=== PATIENT | male | born 1935 | race Caucasian/White ===

== ENCOUNTER → 2017-07-31 | Outpatient (CLI) | payer MEDICARE, BC ==
[2016-11-23 12:29] VITALS: BMI 23.6
[~2017-07-31] MED LIST: BICA50TA36 PO; CALC600T63 PO; CEPH-13 PO; DILT-145 PO; FINA5TAB67 PO; FURO40TA35 PO; LOR5/325 PO; METO25TA23 PO; METO25TA93 PO; OSE75 PO; POTA20TA94 PO; SODI650T7 PO; TAMS0.4C25 PO; WARF-1 PO
--- NOTE | 2017-07-31 11:10 | RADIOLOGY IMAGING REPORT ---
FACILITY: [facility] PATIENT NAME: Trever Shen : 1935 MR: [id number] V: [id number] EXAM DATE: ORDERING PHYSICIAN: ROXY AMAYA TECHNOLOGIST: Location: [facility] [place] Patient: Trever Shen : 1935 Visit/Account:[id number] Date of Sevice: 07/31/2017 Exam type: CHEST PA AND LAT History: Prostate cancer with metastases, pleural effusion three months ago Comparison: April 11, 2017. Findings: There has been reaccumulation of a small right pleural effusion. Small amount of platelike atelectas is noted in the right lung base. The left lung appears relatively well aerated. The cardiac silhoue tte is enlarged but unchanged. There is moderate ectasia the thoracic aorta and mild spondylotic remigio nges of the thoracic spine IMPRESSION: 1. Reaccumulation of a small right pleural effusion with a small amount of right basilar atelectasis Report Dictated By: Alysha Garsia MD at 07/31/2017 11:05 AM Report E-Signed By: Alysha Garsia MD at 07/31/2017 11:07 AM WSN:[email or web address]
== END ==
LOC: RAD 09:18
PROVIDERS: ATTEND Urology
DX: J90 Pleural effusion, not elsewhere classified (principal); J98.11 Atelectasis; C61 Malignant neoplasm of prostate; N18.9 Chronic kidney disease, unspecified
CPT/HCPCS: 36415; 71046; 82040; 82247; 82248; 82310; 82374; 82435; 82565; 82947; 84075; 84132; 84153; 84155; 84295; 84450; 84460; 84520

== ENCOUNTER 2017-08-23 08:33 | Inpatient (IN) | payer MEDICARE, BC ==
[~2017-08-23] VITALS: Ht 185.4 cm; Wt 75.9 kg
[2017-08-23] MEDS ORDERED: NS(*) 0.9% 1000 ML BAG 1,000 ML IV ONE (08:50)
--- NOTE | 2017-08-23 09:22 | EKG ---
FACILITY: [facility] PATIENT NAME: GISELLE JEAN : [id number] MR: [id number] V: [id number] EXAM DATE: ORDERING PHYSICIAN: MINI HAGEN TECHNOLOGIST: FRAN Dodd Reason : MUSCULOSKEL Blood Pressure : / mmHG Vent. Rate : 110 BPM Atrial Rate : 125 BPM P-R Int : 000 ms QRS Dur : 088 ms QT Int : 354 ms P-R-T Axes : 000 087 080 degrees QTc Int : 479 ms Atrial fibrillation with rapid ventricular response Nonspecific ST and T wave abnormality , probably digitalis effect Abnormal ECG When compared with ECG of 22-NOV-2016 06:58, Nonspecific T wave abnormality no longer evident in Inferior leads Confirmed by YON VALE ([id number]) on 08/24/2017 5:49:37 AM Referred By: XIAO Confirmed By:YON VALE
[2017-08-23 09:29] LABS: PLATELET COUNT, AUTOMATED 213 K/uL (150-450)
[2017-08-23 09:36] LABS: INR 2.17
--- NOTE | 2017-08-23 09:47 | ER Report ---
History and Physical Time Seen By MD: 09:18 Hx. of Stated Complaint: feels dehydrated because his ostomy is acting up. "lost about 20# in the last week HPI/ROS CHIEF COMPLAINT: Dehydration HISTORY OF PRESENT ILLNESS: A 82-year-old male with prior episodes of dehydration presents with similar sensation occluding dry mouth and generalized fatigue. History of A. fib. Denies any other symptoms today. States he 1st noticed his ostomy bag following up on an almost daily basis with liquid stools which he feels may be related to the dehydration. Denies bloody stools. REVIEW OF SYSTEMS: Constitutional: No fever, no chills. Eyes: No discharge. ENT: No sore throat. Cardiovascular: No chest pain, no palpitations. Respiratory: No cough, no shortness of breath. Gastrointestinal: No abdominal pain, no vomiting. Genitourinary: No hematuria. Musculoskeletal: No back pain. Skin: No rashes. Neurological: No headache. Allergies: Coded Allergies: Sulfa (Sulfonamide Antibiotics) (Verified Adverse Reaction, Mild, RASH, 08/23/17) Home Meds Active Scripts Potassium Chloride (POTASSIUM CHLORIDE) 20 Meq Tab.er.prt, 20 MEQ PO BIDBS, #60 TAB 1 Refill Prov:CASPER SAEED MD 10/15/16 Reported Medications Furosemide (LASIX) 40 Mg Tablet, 1 TAB PO DAILY Y for edma & dyspnea, #30 TAB May take 1 pill daily as needed for Edema & dyspnea, if needed for more than 2 days in a row, call and follow up with Primary care Physician 11/24/16 Diltiazem Hcl (CARDIZEM CD) 180 Mg Cap.er.24h, 180 MG PO DAILY, #30 11/24/16 Warfarin Sodium (COUMADIN) 5 Mg Tablet, 5 MG PO QDAY, #30 11/24/16 Metoprolol Tartrate (METOPROLOL TARTRATE) 25 Mg Tablet, 1 TAB PO BID, TAB 10/11/16 Sodium Bicarbonate (SODIUM BICARBONATE) 650 Mg Tablet, 1300 MG PO BID 10/11/16 Bicalutamide (BICALUTAMIDE) 50 Mg Tablet, 50 MG PO DAILY 08/14/16 Finasteride (FINASTERIDE) 5 Mg Tablet, 5 MG PO QDAY 08/14/16 Hx Smoking: Yes Smoking Status: Former Smoker Hx Substance Use Disorder: No Hx Alcohol Use: No Constitutional Vital Sign - Last 24 Hours 08/23/17 08/23/17 08/23/17 08/23/17 08:33 08:38 08:38 08:48 Temp 97.9 Pulse ??? 108 91 Resp 20 15 B/P (MAP) 104/91 104/91 (95) Pulse Ox 95 92 O2 Delivery Room Air 08/23/17 08/23/17 08/23/17 08/23/17 09:00 09:03 09:18 09:30 Pulse 98 93 Resp 19 8 B/P (MAP) 81/69 (73) 106/74 (85) Pulse Ox 90 91 08/23/17 08/23/17 08/23/17 08/23/17 09:33 09:48 10:00 10:03 Pulse 95 109 107 Resp 30 18 20 B/P (MAP) 128/72 (90) Pulse Ox 96 91 91 Physical Exam General Appearance: The patient is alert, has no immediate need for airway protection and no signs of toxicity. No acute distress Eyes: Pupils equal and round no pallor or injection. ENT, Mouth: Mucous membranes are dry Respiratory: There are no retractions, lungs are clear to auscultation. Cardiovascular: Irregular rate and rhythm. No murmurs gallops or rubs Gastrointestinal: Abdomen is soft and non tender, no masses, bowel sounds normal. Neurological: Grossly normal Skin: Warm and dry, no rashes. Musculoskeletal: Neck is supple non tender. Extremities are nontender, nonswollen and have full range of motion. No edema DIFFERENTIAL DIAGNOSIS: After history and physical exam differential diagnosis was considered for dehydration pneumonia acute FL dissection renal failure acute kidney injury no signs of stroke or other serious process Medical Decision Making Data Points Result Diagram: 08/23/1711 08/23/1711 Laboratory Hematology Test 08/23/17 09:11 Red Blood Count 4.79 M/uL (4.00-5.60) Mean Corpuscular Volume 87.8 fL (80.0-96.0) Mean Corpuscular Hemoglobin 30.0 pg (26.0-33.0) Mean Corpuscular Hemoglobin Concent 34.2 g/dL (32.0-36.0) Red Cell Distribution Width 16.0 % (11.5-14.5) Mean Platelet Volume 8.6 fL (7.2-11.1) Neutrophils (%) (Auto) 60.0 % (39.4-72.5) Lymphocytes (%) (Auto) 14.2 % (17.6-49.6) Monocytes (%) (Auto) 17.1 % (4.1-12.4) Eosinophils (%) (Auto) 7.9 % (0.4-6.7) Basophils (%) (Auto) 0.8 % (0.3-1.4) Nucleated RBC Relative Count (auto) 0.6 /100WBC Neutrophils # (Auto) 2.0 K/uL (2.0-7.4) Lymphocytes # (Auto) 0.5 K/uL (1.3-3.6) Monocytes # (Auto) 0.6 K/uL (0.3-1.0) Eosinophils # (Auto) 0.3 K/uL (0.0-0.5) Basophils # (Auto) 0.0 K/uL (0.0-0.1) Nucleated RBC Absolute Count (auto) 0.02 K/uL Prothrombin Time 24.7 seconds (12.0-14.4) Prothromb Time International Ratio 2.17 Activated Partial Thromboplast Time 33 seconds (23-35) Sodium Level 138 mmol/L (137-145) Potassium Level 4.4 mmol/L (3.5-5.0) Chloride Level 102 mmol/L (98-107) Carbon Dioxide Level 17 mmol/L (22-30) Blood Urea Nitrogen 54 mg/dl (9-21) Creatinine 4.10 mg/dl (0.66-1.25) Glomerular Filtration Rate Calc 14.0 Random Glucose 168 mg/dl (75-110) Calcium Level 11.0 mg/dl (8.4-10.2) Total Bilirubin 1.1 mg/dl (0.2-1.3) Aspartate Amino Transf (AST/SGOT) 29 U/L (0-35) Alanine Aminotransferase (ALT/SGPT) 41 U/L (0-56) Alkaline Phosphatase 80 U/L (0-126) Troponin I 0.042 ng/ml B-Type Natriuretic Peptide 95 pg/ml (0-100) Total Protein 9.7 gm/dl (6.3-8.2) Albumin 4.9 g/dl (3.5-5.0) Influenza Virus Type A (PCR) Negative (NEGATIVE) Influenza Virus Type B (PCR) Negative (NEGATIVE) Chemistry Test 08/23/17 09:11 White Blood Count 3.3 k/uL (4.5-11.0) Red Blood Count 4.79 M/uL (4.00-5.60) Hemoglobin 14.4 g/dL (14.0-18.0) Hematocrit 42.1 % (42.0-52.0) Mean Corpuscular Volume 87.8 fL (80.0-96.0) Mean Corpuscular Hemoglobin 30.0 pg (26.0-33.0) Mean Corpuscular Hemoglobin Concent 34.2 g/dL (32.0-36.0) Red Cell Distribution Width 16.0 % (11.5-14.5) Platelet Count 213 K/uL (150-450) Mean Platelet Volume 8.6 fL (7.2-11.1) Neutrophils (%) (Auto) 60.0 % (39.4-72.5) Lymphocytes (%) (Auto) 14.2 % (17.6-49.6) Monocytes (%) (Auto) 17.1 % (4.1-12.4) Eosinophils (%) (Auto) 7.9 % (0.4-6.7) Basophils (%) (Auto) 0.8 % (0.3-1.4) Nucleated RBC Relative Count (auto) 0.6 /100WBC Neutrophils # (Auto) 2.0 K/uL (2.0-7.4) Lymphocytes # (Auto) 0.5 K/uL (1.3-3.6) Monocytes # (Auto) 0.6 K/uL (0.3-1.0) Eosinophils # (Auto) 0.3 K/uL (0.0-0.5) Basophils # (Auto) 0.0 K/uL (0.0-0.1) Nucleated RBC Absolute Count (auto) 0.02 K/uL Prothrombin Time 24.7 seconds (12.0-14.4) Prothromb Time International Ratio 2.17 Activated Partial Thromboplast Time 33 seconds (23-35) Glomerular Filtration Rate Calc 14.0 Calcium Level 11.0 mg/dl (8.4-10.2) Total Bilirubin 1.1 mg/dl (0.2-1.3) Aspartate Amino Transf (AST/SGOT) 29 U/L (0-35) Alanine Aminotransferase (ALT/SGPT) 41 U/L (0-56) Alkaline Phosphatase 80 U/L (0-126) Troponin I 0.042 ng/ml B-Type Natriuretic Peptide 95 pg/ml (0-100) Total Protein 9.7 gm/dl (6.3-8.2) Albumin 4.9 g/dl (3.5-5.0) Influenza Virus Type A (PCR) Negative (NEGATIVE) Influenza Virus Type B (PCR) Negative (NEGATIVE) Coagulation Test 08/23/17 09:11 Prothrombin Time 24.7 seconds Prothromb Time International Ratio 2.17 Activated Partial Thromboplast Time 33 seconds EKG/Imaging EKG Interpretation EKG 8:50 AM read by me Narciso elias with rapid ventricular response ventricular rate of 110 normal QRS QTc intervals no ST or 2 changes to suggest ischemia or infarction. ED Course/Re-evaluation ED Course Plan of care agreed-upon prior to orders placed. Elevated creatinine discussed and compared with prior values implications and hospitalization discussed Dr. Evan Saeed patient consultation Decision to Disposition Date: Aug 23, 2017 Decision to Disposition Time: 10:18 Depart Departure Latest Vital Signs Vital Signs Date Time Temp Pulse Resp B/P (MAP) Pulse Ox O2 Delivery O2 Flow Rate FiO2 08/23/17 10:03 107 20 91 08/23/17 10:00 128/72 (90) 08/23/17 08:38 97.9 Room Air Impression: Primary Impression: Acute kidney injury (nontraumatic) Additional Impressions: Dehydration Diarrhea Condition: Improved Disposition: Admitted from ER Referrals: MIKAYLA HIRSCH DO (PCP) Problem Qualifiers Additional Impressions: Diarrhea Diarrhea type: unspecified type Qualified Codes: R19.7 - Diarrhea, unspecified MINI HAGEN MD Aug 23, 2017 09:46
--- NOTE | 2017-08-23 10:03 | RADIOLOGY IMAGING REPORT ---
FACILITY: [facility] - [place] PATIENT NAME: Trever Shen : 1935 MR: [id number] V: [id number] EXAM DATE: ORDERING PHYSICIAN: MINI HAGEN TECHNOLOGIST: Location: [facility] Patient: Trever Shen : 1935 Visit/Account:[id number] Date of Sevice: 08/23/2017 EXAMINATION: Portable AP Chest 08/23/2017 8:46 AM HISTORY: wheezing, dyspnea; for edema COMPARISON: 07/31/2017 FINDINGS: Cardiomediastinal contours: Stable heart size. Lungs and pleura: Stable vasculature and interstitial markings in the lungs. No overt acute edema. No focal infiltrate. Pleural spaces are clear. Bones/soft tissues: Normal Cardiac leads are present. IMPRESSION: No significant acute finding. Small right effusion demonstrated in July has cleared. Report Dictated By: Kole Olivas MD at 08/23/2017 9:18 AM Report E-Signed By: Kole Olivas MD at 08/23/2017 9:21 AM WSN:[email or web address]
[2017-08-23 11:11] VITALS: BP 131/100
[2017-08-23 11:33] VITALS: BP 118/74
[2017-08-23] MEDS: NS(*) 0.9% 1000 ML BAG 1,000 ML IV PRN (12:38)
--- NOTE | 2017-08-23 13:06 | History & Physical ---
History of Present Illness Chief Complaint The patient is an 82 year old male with PMH significant for chronic renal insufficiency, metastatic prostate cancer and ileostomy after colectomy for ulcerative colitis who presents with increased watery output from his ostomy since Saturday. History of Present Illness The patient states he had a complete colectomy many years ago for difficult to control ulcerative colitis. He has had an ileostomy since. He states that occasionally the ostomy output will become loose, but this is not common. On Saturday of this week, the patient did not feel well with some nausea. He vomited X 1. He developed increased watery output from his ostomy. He denies fever or chills. He states his appetite has been poor with this. Nothing sounds good or tastes good. He states his ostomy came undone in the night on and soiled his bed. The edges of the stain on his bedsheets was pink/red. He was concerned about blood. He has not seen augustus blood and has not had dark output. The patient states that with the increased output and decreased oral intake he developed dry lips and mouth. His mouth is so dry it is difficult to speak. He was concerned about dehydration and presented to [facility] ER earlier today for evaluation. In the ER, his creatinine was noted to be over 4. He was recommended for admission for gastroenteritis with significant dehydration and resultant acute on chronic renal failure. 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 (7) HTN (hypertension) Status: Chronic (8) Ulcerative colitis Status: Chronic (9) Parastomal hernia Onset Date: 05/25/2014 Status: Resolved (10) S/P colectomy Status: Resolved Home Meds Reported Medications Furosemide (LASIX) 40 Mg Tablet, 1 TAB PO DAILY Y for edma & dyspnea, #30 TAB May take 1 pill daily as needed for Edema & dyspnea, if needed for more than 2 days in a row, call and follow up with Primary care Physician 11/24/16 Diltiazem Hcl (CARDIZEM CD) 180 Mg Cap.er.24h, 180 MG PO DAILY, #30 11/24/16 Warfarin Sodium (COUMADIN) 5 Mg Tablet, 5 MG PO QDAY, #30 11/24/16 Metoprolol Tartrate (METOPROLOL TARTRATE) 25 Mg Tablet, 1 TAB PO BID, TAB 10/11/16 Sodium Bicarbonate (SODIUM BICARBONATE) 650 Mg Tablet, 1300 MG PO DAILY 10/11/16 Discontinued Reported Medications Bicalutamide (BICALUTAMIDE) 50 Mg Tablet, 50 MG PO DAILY 08/14/16 Finasteride (FINASTERIDE) 5 Mg Tablet, 5 MG PO QDAY 08/14/16 Discontinued Scripts Potassium Chloride (POTASSIUM CHLORIDE) 20 Meq Tab.er.prt, 20 MEQ PO BIDBS, #60 TAB 1 Refill Prov:CASPER SCOTT MD 10/15/16 Allergies: Coded Allergies: Sulfa (Sulfonamide Antibiotics) (Verified Adverse Reaction, Mild, RASH, 08/23/17) Patient History: FH: arthritis FATHER, FH: diabetes mellitus MOTHER, Ana Gehrig's disease BROTHER OR SISTER Other Social/Family Hx The patient is for about 10 years and lives alone. He has family members who help him at home. He is retired. He quit smoking in 1981 and quit alcohol use in 1992. 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 Hx Smoking: Yes Smoking Status: Former Smoker Caffeine Intake: Coffee Caffeine/Cups Per Day: 1-2 Hx Alcohol Use: Yes (Quit drinking in 1992. Active AA member. 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.) Hx Substance Use Disorder: No Social Drug Use: Never History of IV Drug Use: No Review of Systems Constitutional: No Fever, No Chills Neurological: Weakness Eyes: No Vision Change ENT: No Hearing Loss Cardiovascular: No Chest Pain Respiratory: No Shortness of Breath Gastrointestinal: Nausea, Vomiting, Diarrhea (Watery ostomy output.), Other ( Decreased appetite.) Genitourinary: No Dysuria Musculoskeletal: No Pain Psychiatric: No Depression Exam Vital Signs Vital Signs Date Time Temp Pulse Resp B/P (MAP) Pulse Ox O2 Delivery O2 Flow Rate FiO2 08/25/17 18:20 97.6 90 16 114/77 (89) 96 Room Air General Appearance: Alert, Awake, No Acute Distress, Other (Mouth is dry so has difficulty speaking.) Neuro: No Gross deficits Eyes: PERRLA ENT: Other (Lips and mucous membranes extremely dry and lips are cracked.) Neck: No Masses Cardiovascular: Other (Irregularly irregular.) Respiratory: Clear to Auscultation (Anteriorly.) GI: Abd Soft and Non-Tender, Other (BS hyperactive. Ostomy bag in place RLQ. No redness.) Extremities: Warm, Perfused, Other (No edema.) Integumentary: Skin Intact without Lesion / Mass Psych: Appropriate Mood & Affect Medical Decision Making Data Points Result Diagram: 08/25/1753608/25/17536 Item Value Date Time Total Bilirubin 1.1 mg/dl 08/23/17 0911 Aspartate Amino Transf (AST/SGOT) 29 U/L 08/23/17 0911 Alanine Aminotransferase (ALT/SGPT) 41 U/L 08/23/17 0911 Alkaline Phosphatase 80 U/L 08/23/17 0911 Troponin I 0.042 ng/ml 08/23/17 0911 B-Type Natriuretic Peptide 95 pg/ml 08/23/17 0911 Total Protein 9.7 gm/dl H 08/23/17 0911 Albumin 4.9 g/dl 08/23/17 0911 Prothromb Time International Ratio 2.17 08/23/17 0911 Urine culture ordered. EKG / Imaging EKG Interpretation FACILITY: [facility] [place] PATIENT NAME: GISELLE JEAN DOB: [id number] MR: [id number] V: [id number] EXAM DATE: ORDERING PHYSICIAN: MINI HAGEN TECHNOLOGIST: FRAN Dodd Reason : MUSCULOSKEL Blood Pressure : / mmHG Vent. Rate : 110 BPM Atrial Rate : 125 BPM P-R Int : 000 ms QRS Dur : 088 ms QT Int : 354 ms P-R-T Axes : 000 087 080 degrees QTc Int : 479 ms Atrial fibrillation with rapid ventricular response Nonspecific ST and T wave abnormality , probably digitalis effect Abnormal ECG When compared with ECG of 22-NOV-2016 06:58, Nonspecific T wave abnormality no longer evident in Inferior leads Referred By: XIAO Confirmed By: 0850 T: Imaging FACILITY: [facility] [place] PATIENT NAME: Giselle Jean DOB: 1935 MR: [id number] V: [id number] EXAM DATE: ORDERING PHYSICIAN: MINI HAGEN TECHNOLOGIST: Location: [facility] - [place] Patient: Giselle Jean : 1935 Visit/Account:[id number] Date of Sevice: 08/23/2017 EXAMINATION: Portable AP Chest 08/23/2017 8:46 AM HISTORY: wheezing, dyspnea; for edema COMPARISON: 07/31/2017 FINDINGS: Cardiomediastinal contours: Stable heart size. Lungs and pleura: Stable vasculature and interstitial markings in the lungs. No overt acute edema. No focal infiltrate. Pleural spaces are clear. Bones/soft tissues: Normal Cardiac leads are present. IMPRESSION: No significant acute finding. Small right effusion demonstrated in July has cleared. Report Dictated By: Kole Olivas MD at 08/23/2017 9:18 AM Report E-Signed By: Kole Olivas MD at 08/23/2017 9:21 AM WSN:[email or web address] Pre-Admit Course ED Medications NS. Medical Record Review: Yes Assessment and Plan Problems: (1) Gastroenteritis Status: Acute Assessment & Plan: The patient has had 2 days of nausea and watery ostomy output. No fever or chills. WBC is normal. Certainly could have VGE. Will send stool for cultures, WBC and C. diff. Will hydrate. Monitor labs. (2) Acute on chronic renal failure Status: Acute Assessment & Plan: Creatinine is elevated to 4.1. His baseline creatinine appears to be around 2. Will hydrate and monitor labs. Adjust meds as needed for renal failure. (3) Dehydration Status: Acute Assessment & Plan: Hydrate as above. Monitor labs. (4) Chronic atrial fibrillation Status: Chronic Assessment & Plan: Continue Coumadin. INR is 2.1. Continue diltiazem ER 180mg daily. (5) HTN (hypertension) Status: Chronic Assessment & Plan: Continue diltiazem ER 180mg daily. 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 He is on no medications currently as Dr. Pearson stopped his finasteride. (7) Prostate cancer metastatic to multiple sites Status: Chronic Assessment & Plan: He sees Dr. Myrick and has had radiation therapy to his prostate and bony mets. Casodex has been stopped. 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 (9) Ulcerative colitis Status: Chronic Assessment & Plan: S/P colectomy with ileostomy as above. Time Spent on Plan of Care: < 30 min Copies to: MIKAYLA HIRSCH DO; EFRAÍN SCHMIDT MD; ROXY PEARSON MD; OMA MYRICK MD Venous Thromboembolism VTE Risk Physician Assess for VTE Risk: Yes Patient's VTE Risk: Low VTE Diagnostic Test 2 Days Prior to Admit: No Antithrombotics Is Pt On Any Antithrombotics?: Yes Exam Sepsis Risk: No Definite Risk Problem Qualifiers (1) HTN (hypertension): Hypertension type: essential hypertension Qualified Codes: I10 - Essential ( primary) hypertension YON SCOTT MD Aug 23, 2017 13:06
[2017-08-23 15:02] VITALS: BP 106/80
[2017-08-23 15:48] VITALS: Ht 185.4 cm; Wt 75.9 kg
[2017-08-23 18:49] VITALS: BP 124/88
[2017-08-24] VITALS (8 sets, daily range): BP systolic 102–132; BP diastolic 66–93
[2017-08-24] MEDS: NS(*) 0.9% 1000 ML BAG 1,000 ML IV PRN ×3 (00:41→20:32)
[2017-08-24 06:02] LABS: PLATELET COUNT, AUTOMATED 155 K/uL (150-450)
[2017-08-24 06:28] LABS: INR 2.84
[2017-08-24] MEDS ORDERED: cefTRIAXone 1 GM VIAL IVP SCH (07:00)
[2017-08-24] MEDS: DILTIAZEM CD 180 MG CAPCR PO SCH (09:00)
[2017-08-24] MEDS: METOPROLOL TART 50 MG TAB PO SCH ×2 (09:00→20:32)
[2017-08-24] MEDS ORDERED: DILTIAZEM CD 180 MG CAPCR PO SCH (09:00)
[2017-08-24] MEDS ORDERED: METOPROLOL TART 50 MG TAB PO SCH (09:00)
[2017-08-24] MEDS: SODIUM BICARBONATE 650 MG TAB PO SCH (09:25)
[2017-08-24] MEDS: cefTRIAXone 1 GM VIAL IVP SCH (09:25)
--- NOTE | 2017-08-24 10:33 | Hospitalist Progress Note ---
Subjective Progress Notes Subjective He reports feeling improved. Still with some loose/watery ileostomy output. Physical Exam Vital Signs Date Time Temp Pulse Resp B/P (MAP) Pulse Ox O2 Delivery O2 Flow Rate FiO2 08/24/17 09:30 111/66 (81) 08/24/17 08:20 97 08/24/17 08:14 97.6 109 16 Room Air General Appearance: Alert, Awake Cardiovascular: Other (Irregular slightly tachycardic) Respiratory: Clear to Auscultation GI: Soft and Non-Tender (BS present), Other (ileostomy LLQ with minimal amount liquid stool) Extremities: Warm, Perfused Psych: Alert & Oriented X3 Result Diagram: 08/24/1754408/24/17544 Assessment and Plan Problems: (1) UTI (urinary tract infection) Status: Acute Assessment & Plan: Complicated by self-cathing. He is currently on IV Rocephin. Await urine culture results. Will place Jones cath to ensure adequate urinary drainage and monitor I/Os. Resume self-cath after treatment for a couple of days. 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 He usually does self-cath. He is on no medications currently as Dr. Pearson stopped his finasteride. (3) Gastroenteritis Status: Acute Assessment & Plan: Probable viral gastroenteritis. The patient had 2 days of nausea and watery ileostomy output. Stool culture pending. C. difficile negative. Will continue IV fluids. Clinically improved. No changes at this time. (4) Acute on chronic renal failure Status: Acute Assessment & Plan: Creatinine was elevated to 4.1. He is at 3.3 today after IV fluids. His baseline creatinine appears to be around 2. Will continue IV fluids and monitor labs. (5) Dehydration Status: Acute Assessment & Plan: Due to probably viral gastroenteritis and increased ileostomy output. Hydrate as above. Monitor labs. (6) Chronic atrial fibrillation Status: Chronic Assessment & Plan: Continue Coumadin. INR is 2.84 today. Continue diltiazem and metoprolol for rate control as he tolerates. (7) HTN (hypertension) Status: Chronic Assessment & Plan: He has been on lower side due to dehydration. Monitor BPs and resume his medications as needed. (8) Prostate cancer metastatic to multiple sites Status: Chronic Assessment & Plan: He sees Dr. Saenz and had radiation therapy to his prostate and bony mets. Casodex has been stopped. 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 (10) Ulcerative colitis Status: Chronic Assessment & Plan: S/P colectomy with ileostomy as above. Exam Sepsis Risk: Severe Sepsis Risk Problem Qualifiers (1) HTN (hypertension): Hypertension type: essential hypertension Qualified Codes: I10 - Essential ( primary) hypertension CASPER SCOTT MD Aug 24, 2017 10:32
--- NOTE | 2017-08-24 12:18 | Medical Nutrition Therapy ---
Nutrition Anthropometrics Height (Inches): 73.00 Height (Calculated Centimeters: [phone] Weight (Pounds): 167 Weight (Calculated Kilograms): 75.892 BMI Calculated: 22.03 Hx Weight Loss: Yes (wt 179# 11/2016 by standing scale; stated wt of 187# 2016) Jerson Nutrition Score: Adequate Jerson Nutrition Risk Score: 20 Dietary Referral Nutrition Risk Factors: Unplanned Loss >10lbs Nutrition Risk Comment: 30 lb weight loss in 1 month Physical Findings Physical Appearance: WNL Skin Appearance Skin Appearance: Edema Edema Location Modifier: Edema Location: Type of Edema: Degree of Edema: Gastrointestinal Symptoms GI Symtoms: Tube Present: Bowel Sounds: Recent Bowel Pattern: Stool Characteristics: Nutrition/Food History Decreased Appetite Nutritional Diagnosis Nutritional Risk Acuity 1: Acute/ES Renal Nutritional Risk Acuity 3: Fair Appetite, Nausea, Cancer Past Medical History: ileostomy, ulcerative colitis, metistatic prostrate Ca, chronic kidney disease, chronic renal failure, Nutritional Acuity: 1-High Nutrition Diagnosis: Inadequate Food Intake Nutrition Etiology: Physiological Causes Nutrition Problem/Etiology/Sym: Inadequate Oral Intake related to decreased ability to consume sufficient energy, e.g. decreased appetite prior to admit AEB reports of insufficient intake of energy from diet when compared to requirements. Energy Requirement: 2250 ([place]-St Jeor: Actual BW X 1.5) Protein Requirement: 75 (Actual BW Kg X 1.0) Fluid Requirement: 2250 Diet Type: Diet as Tolerated MATIAS/REG Nutrition Intervention: Cont diet as ordered Do Not Serve Any of the Follow: Broccoli, Brussel Sprouts, Spinach, [place] Lettuce, Cranberry Juice Nutrition Monitoring & Eval RD Patient Assessment Time: [address] Assessment Type: RD Assessment Patient Nutrition Acuity: 1-High Follow Up Date: Aug 25, 2017 Nutritional Comment: 08/23 Pt admitted for gastoenteritis with acute on chronic renal failure. BUN 54, Creatinine 4.1. Alb 4.9 with dehydration. Pt currently on clear liquid diet. Pt has ileostomy with watery outpt. Will encourage adequate fluid intake. Cont to monitor. 08/24 Alb 4.9, High BUN/Creat, Low H/H. Within normal wt range with BMI of 22.1. Diet progression to MATIAS with 100% consumption of clear liquid meal last night. Noted decreased intake prior to admit. Follow intake, labs, etc. GENARO DAS Aug 24, 2017 12:18
[2017-08-24] MEDS: WARFARIN SOD 5 MG TAB PO SCH (13:27)
[2017-08-25] VITALS (7 sets, daily range): BP systolic 109–137; BP diastolic 70–90
[2017-08-25] MEDS: NS(*) 0.9% 1000 ML BAG 1,000 ML IV PRN ×2 (04:29→22:08)
[2017-08-25 06:06] LABS: PLATELET COUNT, AUTOMATED 134 K/uL (150-450)
[2017-08-25 06:08] LABS: INR 2.96
[2017-08-25] MEDS: SODIUM BICARBONATE 650 MG TAB PO SCH (08:40)
[2017-08-25] MEDS: METOPROLOL TART 50 MG TAB PO SCH ×2 (08:40→21:00)
[2017-08-25] MEDS: DILTIAZEM CD 180 MG CAPCR PO SCH (09:00)
[2017-08-25] MEDS: cefTRIAXone 1 GM VIAL IVP SCH (09:12)
[2017-08-25] MEDS ORDERED: LOPERAMIDE HCL 2 MG CAP PO PRN (09:30)
[2017-08-25] MEDS ORDERED: CALAMINE LOTION 120 ML BTL TP PRN (09:40)
[2017-08-25] MEDS ORDERED: NS 0.45% IV SCH (10:00)
[2017-08-25] MEDS ORDERED: SODIUM BICAR IV SCH (10:00)
--- NOTE | 2017-08-25 11:23 | Medical Nutrition Therapy ---
Nutrition Anthropometrics Height (Inches): 73.00 Height (Calculated Centimeters: 185.360058 Weight (Pounds): 167 Weight (Calculated Kilograms): 75.892 BMI Calculated: 22.03 Hx Weight Loss: Yes (wt 179# 11/2016 by standing scale; stated wt of 187# 2017) Jerson Nutrition Score: Adequate Jerson Nutrition Risk Score: 20 Dietary Referral Nutrition Risk Factors: Unplanned Loss >10lbs Nutrition Risk Comment: 30 lb weight loss in 1 month Physical Findings Physical Appearance: WNL Skin Appearance Skin Appearance: Edema Edema Location Modifier: Edema Location: Type of Edema: Degree of Edema: Gastrointestinal Symptoms GI Symtoms: Tube Present: Bowel Sounds: Recent Bowel Pattern: Stool Characteristics: Nutritional Diagnosis Nutritional Risk Acuity 1: Acute/ES Renal Nutritional Risk Acuity 3: Fair Appetite, Nausea, Cancer Past Medical History: ileostomy, ulcerative colitis, metistatic prostrate Ca, chronic kidney disease, chronic renal failure, Nutritional Acuity: 1-High Nutrition Diagnosis: Inadequate Food Intake Nutrition Etiology: Physiological Causes Nutrition Problem/Etiology/Sym: Inadequate Oral Intake related to decreased ability to consume sufficient energy, e.g. decreased appetite prior to admit AEB reports of insufficient intake of energy from diet when compared to requirements. Energy Requirement: 2250 ([place]-St Jeor: Actual BW X 1.5) Protein Requirement: 75 (Actual BW Kg X 1.0) Fluid Requirement: 2250 Diet Type: Diet as Tolerated MATIAS/REG Nutrition Intervention: Cont diet as ordered Drug: Warfarin Food Likes: 1/2 Portions Do Not Serve Any of the Follow: Broccoli, Brussel Sprouts, Spinach, [place] Lettuce, Cranberry Juice Nutrition Monitoring & Eval Nutrition Goals: Eat 75-100% Meal RD Patient Assessment Time: [address] Assessment Type: RD Re-Assessment Patient Nutrition Acuity: 1-High Follow Up Date: Aug 28, 2017 Nutritional Comment: 08/23 Pt admitted for gastoenteritis with acute on chronic renal failure. BUN 54, Creatinine 4.1. Alb 4.9 with dehydration. Pt currently on clear liquid diet. Pt has ileostomy with watery outpt. Will encourage adequate fluid intake. Cont to monitor. 08/24 Alb 4.9, High BUN/Creat, Low H/H. Within normal wt range with BMI of 22.1. Diet progression to MATIAS with 100% consumption of clear liquid meal last night. Noted decreased intake prior to admit. Follow intake, labs, etc. 08/25 Abl 3.2. Seems to be tolerating MATIAS with 50-100% consumption of meals. Follow labs, etc. GENARO DAS Aug 25, 2017 11:23
[2017-08-25] MEDS ORDERED: INFLUENZA VIRUS VAC 0.5 ML SYR IM ONLY ONE (11:55)
--- NOTE | 2017-08-25 12:22 | Hospitalist Progress Note ---
Subjective Progress Notes Subjective The patient states he feels much better today. Physical Exam Vital Signs Date Time Temp Pulse Resp B/P (MAP) Pulse Ox O2 Delivery O2 Flow Rate FiO2 08/25/17 11:35 97.6 08/25/17 11:16 90 12 116/75 (89) 95 Room Air Intake and Output 08/26/17 07:00 Intake Total 1380 ml Balance 1380 ml Intake Oral 1380 ml General Appearance: Alert, Awake, No Acute Distress, Afebrile Neuro: No Gross deficits Eyes: PERRLA Cardiovascular: Regular Rate and Rhythm Respiratory: Clear to Auscultation GI: Soft and Non-Tender Extremities: Warm, Perfused Psych: Appropriate Mood & Affect Result Diagram: 08/25/1753608/25/17536 Assessment and Plan Problems: (1) UTI (urinary tract infection) Status: Acute Assessment & Plan: Complicated by self-cathing. He is currently on IV Rocephin. Urine culture is growing a gram negative malena (>100,000 col/HP).Jones cath was placed to ensure adequate urinary drainage and monitor I/Os. Resume self-cath after treatment for a couple of days. 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 He usually does self-cath. He is on no medications currently as Dr. Pearson stopped his finasteride. (3) Gastroenteritis Status: Acute Assessment & Plan: Probable viral gastroenteritis. The patient had 2 days of nausea and watery ileostomy output. Stool culture negative. C. difficile negative. Will continue IV fluids. Clinically improved. Will add Imodium today. (4) Acute on chronic renal failure Status: Acute Assessment & Plan: Creatinine was elevated to 4.1. He is at 2.5 today after IV fluids. His baseline creatinine appears to be around 2. Will continue IV fluids and monitor labs. (5) Dehydration Status: Acute Assessment & Plan: Due to probably viral gastroenteritis and increased ileostomy output. Hydrate as above. Monitor labs. (6) Chronic atrial fibrillation Status: Chronic Assessment & Plan: Continue Coumadin. INR is 2.84 today. Continue diltiazem and metoprolol for rate control as he tolerates. (7) HTN (hypertension) Status: Chronic Assessment & Plan: He has been on lower side due to dehydration. Monitor BPs and resume his medications as needed. (8) Prostate cancer metastatic to multiple sites Status: Chronic Assessment & Plan: He sees Dr. Saenz and had radiation therapy to his prostate and bony mets. Casodex has been stopped. 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 (10) Ulcerative colitis Status: Chronic Assessment & Plan: S/P colectomy with ileostomy as above. Time Spent on Plan of Care: < 30 min Exam Sepsis Risk: Severe Sepsis Risk Problem Qualifiers (1) HTN (hypertension): Hypertension type: essential hypertension Qualified Codes: I10 - Essential ( primary) hypertension YON SCOTT MD Aug 25, 2017 12:22
[2017-08-25] MEDS: WARFARIN SOD 5 MG TAB PO SCH (13:21)
[2017-08-25] MEDS ORDERED: VANCOMYCIN(*) 1 GM VIAL 1 GM, VANCOMYCIN (*) 0.5 GM VIAL 0.25 GM in NS(*) 0.9% 250 ML B... IVPB ONE (19:30)
[2017-08-26 02:28] VITALS: BP 103/63
[2017-08-26 06:10] LABS: INR 2.75
[2017-08-26] MEDS: NS(*) 0.9% 1000 ML BAG 1,000 ML IV PRN (06:16)
[2017-08-26 06:23] LABS: PLATELET COUNT, AUTOMATED 120 K/uL (150-450)
[2017-08-26 08:13] VITALS: BP 105/74
[2017-08-26] MEDS: cefTRIAXone 1 GM VIAL IVP SCH (08:23)
[2017-08-26] MEDS: METOPROLOL TART 50 MG TAB PO SCH (08:25)
[2017-08-26] MEDS: DILTIAZEM CD 180 MG CAPCR PO SCH (08:25)
[2017-08-26] MEDS: SODIUM BICARBONATE 650 MG TAB PO SCH (08:25)
--- NOTE | 2017-08-26 10:13 | Hospitalist Depart ---
Discharge Summary Reason for Hosp/Final Diag: (1) UTI (urinary tract infection) Status: Acute Hospital Course & Plan: He does have a history of straight catheterization at home. He was initially thought to have a urinary infection, but his culture showed contamination with skin karel. We did initially have him on empiric treatment with ceftriaxone and vancomycin, but we have since stopped all antibiotics. 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 A Jones catheter was placed at admission, but has since been discontinued. (3) Gastroenteritis Status: Acute Hospital Course & Plan: Resolved. (4) Acute on chronic renal failure Status: Acute Hospital Course & Plan: He did have an elevated creatinine above his baseline. This improved with IV fluids. He will follow up with nephrology. (5) Dehydration Status: Acute Hospital Course & Plan: Resolved with IV fluids. (6) Chronic atrial fibrillation Status: Chronic Hospital Course & Plan: He is on chronic treatment with warfarin, metoprolol, and diltiazem. His INR is in therapeutic range on discharge. (7) Prostate cancer metastatic to multiple sites Status: Chronic Hospital Course & Plan: He sees Dr. Saenz and had radiation therapy to his prostate and bony mets. Casodex has been stopped. (8) Ileostomy in place Status: Chronic Hospital Course & Plan: Appears to be functioning. (9) Ulcerative colitis Status: Chronic Hospital Course & Plan: S/P colectomy with ileostomy as above. Departure Latest Vital Signs Vital Signs 08/26/17 08:21 Pulse Ox 94 Weight (Pounds): 167 Weight (Ounces): 5.0 Result Diagram: 08/26/1753208/26/17532 Condition: Improved Discharge: Home, Home Health PT/OT Follow Up For: PT Evaluation and Treat Home Health RN Follow Up For: Cathether Care, Nursing Assessment Home Health [employer] Follow Up For: ADL Assistance Discharge Instructions Home Meds Reported Medications Furosemide (LASIX) 40 Mg Tablet, 1 TAB PO DAILY Y for edma & dyspnea, #30 TAB May take 1 pill daily as needed for Edema & dyspnea, if needed for more than 2 days in a row, call and follow up with Primary care Physician 11/24/16 Diltiazem Hcl (CARDIZEM CD) 180 Mg Cap.er.24h, 180 MG PO DAILY, #30 11/24/16 Warfarin Sodium (COUMADIN) 5 Mg Tablet, 5 MG PO QDAY, #30 11/24/16 Metoprolol Tartrate (METOPROLOL TARTRATE) 25 Mg Tablet, 1 TAB PO BID, TAB 10/11/16 Sodium Bicarbonate (SODIUM BICARBONATE) 650 Mg Tablet, 1300 MG PO DAILY 10/11/16 Discontinued Reported Medications Bicalutamide (BICALUTAMIDE) 50 Mg Tablet, 50 MG PO DAILY 08/14/16 Finasteride (FINASTERIDE) 5 Mg Tablet, 5 MG PO QDAY 08/14/16 Discontinued Scripts Potassium Chloride (POTASSIUM CHLORIDE) 20 Meq Tab.er.prt, 20 MEQ PO BIDBS, #60 TAB 1 Refill Prov:CASPER SCOTT MD 10/15/16 Diet: Regular Activity: As Tolerated Copies to: MIKAYLA HIRSCH DO Venous Thromboembolism Antithrombotics Is Pt On Any Antithrombotics?: Yes [id number] Certification Face to Face Home Health Certification Institutional Provider conducted the [id number] encounter. Electronic Undersigning Physician Certifies Home Health. I certify that the patient has been under my care and that I had a [id number] encounter that meets the physician [id number] encounter requirements with this patient. This patient is home-bound due to safety issues and continues to require assistance with ADL's. I certify that based on my findings, that Nursing, Aides and the following Home Health services are medically necessary: Medical Necessity: Nursing, Rehab Date Face to Face Conducted: Aug 26, 2017 SUNI WATERMAN DO Aug 26, 2017 10:13
[2017-08-26 11:39] VITALS: BP 129/85
[2017-08-26] MEDS: WARFARIN SOD 5 MG TAB PO SCH (12:50)
== END 2017-08-26 14:10 | disposition home health service (06) | DRG 683 ==
LOC: ER 08:33 → MED 10:38
PROVIDERS: ADMIT Internal Medicine; ATTEND Internal Medicine
DX: N17.9 Acute kidney failure, unspecified (principal); C79.51 Secondary malignant neoplasm of bone; K51.90 Ulcerative colitis, unspecified, without complications; N13.8 Other obstructive and reflux uropathy; N18.4 Chronic kidney disease, stage 4 (severe); N40.1 Benign prostatic hyperplasia with lower urinary tract symptoms; A08.4 Viral intestinal infection, unspecified; I12.9 Hypertensive chronic kidney disease with stage 1 through stage 4 chronic kidney disease, or unspecified chronic kidney disease; E86.0 Dehydration; I48.2 Chronic atrial fibrillation; C61 Malignant neoplasm of prostate; F10.21 Alcohol dependence, in remission; I48.0 Paroxysmal atrial fibrillation; Z79.01 Long term (current) use of anticoagulants; Z93.2 Ileostomy status; Z87.891 Personal history of nicotine dependence; Z88.2 Allergy status to sulfonamides; Z92.21 Personal history of antineoplastic chemotherapy
CPT/HCPCS: 36415; 71045; 81001; 82040; 82247; 82274; 82310; 82374; 82435; 82565; 82947; 83630; 83880; 84075; 84132; 84155; 84295; 84450; 84460; 84484; 84520; 85025; 85610; 85730; 87045; 87077; 87088; 87186; 87205; 87324; 87449; 87502; 93005; 96360; 96361; 99285; J0696; J3370; J7030; J7050; Q0163

== ENCOUNTER → 2017-10-23 | Outpatient (CLI) | payer MEDICARE, BC ==
[2017-08-23 15:48] VITALS: BMI 22.0
[2017-10-23 15:27] LABS: PLATELET COUNT, AUTOMATED 162 K/uL (150-450)
== END ==
LOC: LAB 14:51
PROVIDERS: ATTEND Internal Medicine Nephrology
DX: I12.9 Hypertensive chronic kidney disease with stage 1 through stage 4 chronic kidney disease, or unspecified chronic kidney disease (principal); N18.4 Chronic kidney disease, stage 4 (severe); D63.1 Anemia in chronic kidney disease
CPT/HCPCS: 36415; 82040; 82247; 82310; 82374; 82435; 82565; 82570; 82947; 83970; 84075; 84100; 84132; 84155; 84156; 84295; 84450; 84460; 84520; 85025

== ENCOUNTER → 2017-10-24 | Outpatient (CLI) | payer MEDICARE, BC ==
[2017-08-23 15:48] VITALS: BMI 22.0
--- NOTE | 2017-10-24 16:47 | RADIOLOGY IMAGING REPORT ---
FACILITY: [facility] PATIENT NAME: Trever Shen : 1935 MR: [id number] V: [id number] EXAM DATE: ORDERING PHYSICIAN: ROBYN VEGA TECHNOLOGIST: Location[place] [facility] [place] Patient: Trever Shen : 1935 Visit/Account:[id number] Date of Sevice: 10/24/2017 Exam type: CHEST PA AND LAT History: Shortness of breath x2 weeks Comparison: August 23, 2017. Findings: The cardiac silhouette is mildly enlarged and slightly increased when compared the prior study. Ther e has been development of a small right pleural effusion. There is no evidence of a pneumothorax or pneumomediastinum. No evidence of focal infiltrates or overt pulmonary edema. There are mild spondy lotic changes in the thoracic spine. IMPRESSION: 1. Small right pleural effusion has occurred since the prior study Mild cardiomegaly slightly increased Report Dictated By: Alysha Garsia MD at 10/24/2017 4:42 PM Report E-Signed By: Alysha Garsia MD at 10/24/2017 4:43 PM WSN:[email or web address]
== END ==
LOC: RAD 16:16
PROVIDERS: ATTEND Surgery
DX: J90 Pleural effusion, not elsewhere classified (principal); I51.7 Cardiomegaly
CPT/HCPCS: 71046

== ENCOUNTER → 2017-10-25 | Outpatient (CLI) | payer MEDICARE, BC ==
[2017-08-23 15:48] VITALS: BMI 22.0
[~2017-10-25] MED LIST changes: +LIDOCAINE 2% MDV 400MG/20ML VL INFIL ONE
== END ==
LOC: SPU 07:34
PROVIDERS: ATTEND Surgery
DX: C61 Malignant neoplasm of prostate (principal); C79.9 Secondary malignant neoplasm of unspecified site

== ENCOUNTER → 2017-12-02 | Outpatient (CLI) | payer MEDICARE, BC ==
[2017-08-23 15:48] VITALS: BMI 22.0
[~2017-12-02] MED LIST changes: +IOPAMIDOL 76% 75 ML INFUS BTL 0 ML ONE; -LIDOCAINE 2% MDV 400MG/20ML VL INFIL ONE
--- NOTE | 2017-12-02 10:43 | RADIOLOGY IMAGING REPORT ---
FACILITY: [facility] [place] PATIENT NAME: Trever Shen : 1935 MR: [id number] V: [id number] EXAM DATE: ORDERING PHYSICIAN: ROXY AMAYA TECHNOLOGIST: Location: [facility] - [place], [place] Patient: Trever Shen : 1935 Visit/Account:[id number] Date of Sevice: 12/02/2017 EXAMINATION: Chest radiographs 2 views HISTORY: Prostate cancer with metastases. Pleural effusion. COMPARISON: Chest radiographs from 08/23/2017 and 10/24/2017. FINDINGS: PA and lateral views of the chest are submitted. Lines/tubes: None. Lungs/pleura: A small right pleural effusion is unchanged from most recent exam. Left lung is clear . No focal consolidation. Heart: Negative. Mediastinum: Aorta is mildly tortuous and calcified. Bony structures/body wall: Negative. IMPRESSION: Small right pleural effusion, unchanged. Report Dictated By: Madisyn Navarro MD at 12/02/2017 10:13 AM Report E-Signed By: Madisyn Navraro MD at 12/02/2017 10:39 AM WSN:[email or web address]
--- NOTE | 2017-12-02 12:17 | RADIOLOGY IMAGING REPORT ---
FACILITY: [facility] [place] PATIENT NAME: Trever Shen : 1935 MR: [id number] V: [id number] EXAM DATE: ORDERING PHYSICIAN: ROXY AMAYA TECHNOLOGIST: Location: [facility] Patient: Trever Shen : 1935 Visit/Account:[id number] Date of Sevice: 12/02/2017 EXAMINATION: CT abdomen without IV contrast CT pelvis without IV contrast HISTORY: Prostate cancer with metastases. Pleural effusion. COMPARISON: CT chest, abdomen and pelvis from 08/07/2016. TECHNIQUE: Axial images were taken through the abdomen and pelvis without intravenous contrast. Sag ittal and coronal reformatted images are also submitted. IV contrast was not used due to low GFR. One of the following dose optimization techniques was utilized in the performance of this exam: Autom ated exposure control; adjustment of the mA and/or kV according to the patient's size; or use of an i terative reconstruction technique. Specific details can be referenced in the facility's radiology C T exam operational policy. FINDINGS: Please note that without intravenous contrast, sensitivity to detection of parenchymal disease is patino ited. Liver/biliary: Previous cholecystectomy. There are a few subcentimeter hypodensities in the liver wh ich are unchanged. There is no biliary ductal dilatation. Pancreas: Several coarse calcifications in the pancreatic head are unchanged. Spleen: Negative. Adrenal glands: Negative. Kidneys: Mild cortical thinning bilaterally. Pelvic structures: The prostate is mildly enlarged, although decreased from previous exam. There is diffuse wall thickening of the urinary bladder with numerous calcified bladder stones, slightly la rger. Bowel: Total colectomy with right lower quadrant ileostomy. Peritoneum/retroperitoneum/mesenteries: Nodularity along the left posterior margin of the prostate an d in the presacral fat is more linear than on previous exam. Vague haziness in the upper retroperito alfonso fat is unchanged. Vessels: Moderate atherosclerotic calcifications. Musculoskeletal/body wall: Mild rightward curvature and degenerative changes of the lumbar spine. Ex pansile lesion of the left sacrum is smaller with decreased soft tissue component and increased perip heral sclerosis. The lesion measures 5.7 cm in greatest dimension as compared to 7.6 cm. A subcenti meter area of sclerosis in the left iliac bone (image 88 series 2) is slightly larger with more scler osis at the periphery. Slight anterior wedging of T12 is unchanged. Lymph nodes: There are a few retroperitoneal lymph nodes in the upper abdomen, unchanged. A right re trocrural node measures 1.4 x 1.2 cm (image 23 series 2), unchanged. Lower chest: Small to moderate right pleural effusion is increased from previous exam with mild adjac ent atelectasis. Left lung base is clear. IMPRESSION: 1. Small to moderate right pleural effusion is slightly increased. This could be a benign or malign ant effusion. There is no associated soft tissue nodularity to suggest malignancy. 2. Bone metastasis in the sacrum is smaller, with increased sclerosis at the periphery. This could be a residual or treated metastasis. 3. Subcentimeter left iliac bone lesion has increased sclerosis at the periphery and could be a resi dual or treated metastasis. 4. Nodularity along the left posterior prostate and in the presacral fat is more linear, and could b e scarring, versus residual or treated disease. 5. A few retroperitoneal lymph nodes and a mildly enlarged right retrocrural node are unchanged. 6. No evidence of progression of disease. Report Dictated By: Madisyn Navarro MD at 12/02/2017 11:59 AM Report E-Signed By: Madisyn Navarro MD at 12/02/2017 12:13 PM WSN:[email or web address]
== END ==
LOC: CT 03:22
PROVIDERS: ATTEND Urology
DX: J90 Pleural effusion, not elsewhere classified (principal); I70.0 Atherosclerosis of aorta; C79.51 Secondary malignant neoplasm of bone; R59.0 Localized enlarged lymph nodes
CPT/HCPCS: 71046; 74176; Q9967

== ENCOUNTER → 2017-12-10 | Outpatient (CLI) | payer MEDICARE, BC ==
[2017-08-23 15:48] VITALS: BMI 22.0
[~2017-12-10] MED LIST changes: -IOPAMIDOL 76% 75 ML INFUS BTL 0 ML ONE
== END ==
LOC: LAB 18:22
PROVIDERS: ATTEND Urology
DX: N39.41 Urge incontinence (principal); R35.0 Frequency of micturition; R33.8 Other retention of urine; N21.0 Calculus in bladder; B96.89 Other specified bacterial agents as the cause of diseases classified elsewhere
CPT/HCPCS: 81001; 87077; 87088; 87186

== ENCOUNTER → 2017-12-11 | Outpatient (CLI) | payer MEDICARE, BC ==
[2017-08-23 15:48] VITALS: BMI 22.0
[2017-12-11 08:55] LABS: PLATELET COUNT, AUTOMATED 130 K/uL (150-450)
== END ==
LOC: LAB 08:34
PROVIDERS: ATTEND Urology
DX: C61 Malignant neoplasm of prostate (principal); J90 Pleural effusion, not elsewhere classified; N39.0 Urinary tract infection, site not specified
CPT/HCPCS: 36415; 82040; 82247; 82310; 82374; 82435; 82565; 82947; 84075; 84132; 84153; 84155; 84295; 84403; 84450; 84460; 84520; 85025

== ENCOUNTER 2018-01-17 07:55 | Emergency (ER) | payer MEDICARE, BC ==
[2017-08-23 15:48] VITALS: Wt 85.0 kg
[~2018-01-17 07:55] MED LIST changes: +DILT-104 PO; +MULT-813 PO; +SODI325T7 PO
--- NOTE | 2018-01-17 08:04 | ER Report ---
History and Physical Time Seen By MD: 08:04 HPI/ROS 82-year-old male with multiple chronic medical problems presents to the emergency department after 3 days of nausea vomiting and diarrhea. He thinks the symptoms started after he ate food that was in his refrigerator. No hematemesis or hematochezia. He has been unable to drink fluids by mouth. States he feels dehydrated. Also has not been able to take his medications in 3 days. He denies abdominal pain. He has a colostomy in place and states that his loose bowel movements have been contained in his back. His no fever or chills. No urinary symptoms. Remainder of the 14 system rev: Yes Allergies: Coded Allergies: Sulfa (Sulfonamide Antibiotics) (Verified Adverse Reaction, Mild, RASH, 08/23/17) Home Meds Reported Medications Multivitamin (CHEWABLE-CHAVA) 1 Each Tab.chew, 1 TAB.CHEW PO DAILY, 12/26/17 Diltiazem Hcl (CARTIA XT) 180 Mg Cap.er.24h, 1 CAP PO DAILY 12/26/17 Sodium Bicarbonate (SODIUM BICARBONATE) Unknown Strength Tablet, 2 TAB PO DAILY Sodium Bicarb 10gr tab- 2 tabs po daily 12/26/17 Furosemide (LASIX) 40 Mg Tablet, 1 TAB PO DAILY Y for edma & dyspnea, #30 TAB May take 1 pill daily as needed for Edema & dyspnea, if needed for more than 2 days in a row, call and follow up with Primary care Physician 11/24/16 Warfarin Sodium (COUMADIN) 5 Mg Tablet, 5 MG PO QDAY, #30 11/24/16 Metoprolol Tartrate (METOPROLOL TARTRATE) 25 Mg Tablet, 1 TAB PO BID 10/11/16 Reviewed Nurses Notes: Yes Old Medical Records Reviewed: Yes Hx Smoking: Yes Smoking Status: Former Smoker Hx Substance Use Disorder: No Hx Alcohol Use: Yes (Quit drinking in 1992. Active AA member. 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.) Constitutional Vital Sign - Last 24 Hours 01/17/18 01/17/18 01/17/18 01/17/18 07:55 07:58 08:00 08:00 Temp 98.7 Pulse ??? 111 Resp 16 B/P (MAP) 131/99 (110) 31/26 (28) 131/99 Pulse Ox 95 O2 Delivery Room Air 7/601/17/18 01/17/18 01/17/18 08:02 08:10 08:25 08:30 Pulse 111 102 Resp 11 11 B/P (MAP) 135/75 (95) 121/74 (90) Pulse Ox 94 91 01/17/18 01/17/18 01/17/18 01/17/18 08:40 08:55 09:00 09:10 Pulse 99 95 97 Resp 17 19 15 B/P (MAP) 113/71 (85) Pulse Ox 91 93 94 01/17/18 01/17/18 01/17/18 01/17/18 09:25 09:30 09:45 10:00 Pulse 87 97 85 92 Resp 9 16 17 10 B/P (MAP) 123/86 (98) 122/77 (92) Pulse Ox 93 93 93 01/17/18 10:15 Pulse 98 Resp 32 Pulse Ox 91 Intake and Output 01/17/18 01/17/18 01/18/18 15:00 23:00 07:00 Intake Total 1000 ml Output Total 100 ml Balance 900 ml Physical Exam General Appearance: The patient is alert, has no immediate need for airway protection and no current signs of toxicity. Eyes: Pupils equal and round no injection. Respiratory: Chest is non tender, lungs are clear to auscultation. Cardiac: tachy and irregular Gastrointestinal: Abdomen is soft and non tender, no masses, bowel sounds normal , colostomy Extremities have full range of motion and are non tender. Skin: No rashes or lesions.Dry mucous membranes DIFFERENTIAL DIAGNOSIS: After history and physical exam differential diagnosis was considered for UTI, intra-abdominal infection, AAA, mesenteric ischemia, Medical Decision Making Data Points Result Diagram: 01/17/1814 01/17/18 0814 Laboratory Hematology Test 01/17/18 08:14 01/17/18 08:50 Red Blood Count 4.56 M/uL (4.00-5.60) Mean Corpuscular Volume 85.9 fL (80.0-96.0) Mean Corpuscular Hemoglobin 29.8 pg (26.0-33.0) Mean Corpuscular Hemoglobin Concent 34.7 g/dL (32.0-36.0) Red Cell Distribution Width 15.6 % (11.5-14.5) Mean Platelet Volume 8.0 fL (7.2-11.1) Neutrophils (%) (Auto) 86.0 % (39.4-72.5) Lymphocytes (%) (Auto) 7.9 % (17.6-49.6) Monocytes (%) (Auto) 5.7 % (4.1-12.4) Eosinophils (%) (Auto) 0.0 % (0.4-6.7) Basophils (%) (Auto) 0.4 % (0.3-1.4) Nucleated RBC Relative Count (auto) 0.1 /100WBC Neutrophils # (Auto) 6.9 K/uL (2.0-7.4) Lymphocytes # (Auto) 0.6 K/uL (1.3-3.6) Monocytes # (Auto) 0.5 K/uL (0.3-1.0) Eosinophils # (Auto) 0.0 K/uL (0.0-0.5) Basophils # (Auto) 0.0 K/uL (0.0-0.1) Nucleated RBC Absolute Count (auto) 0.00 K/uL Sodium Level 140 mmol/L (137-145) Potassium Level 4.3 mmol/L (3.5-5.0) Chloride Level 102 mmol/L (98-107) Carbon Dioxide Level 19 mmol/L (22-30) Blood Urea Nitrogen 37 mg/dl (9-21) Creatinine 2.90 mg/dl (0.66-1.25) Glomerular Filtration Rate Calc 20.8 Random Glucose 174 mg/dl (75-110) Calcium Level 10.1 mg/dl (8.4-10.2) Total Bilirubin 1.2 mg/dl (0.2-1.3) Aspartate Amino Transf (AST/SGOT) 27 U/L (0-35) Alanine Aminotransferase (ALT/SGPT) 24 U/L (0-56) Alkaline Phosphatase 73 U/L (0-126) Total Protein 8.6 g/dl (6.3-8.2) Albumin 4.6 g/dl (3.5-5.0) Lipase 85 U/L (23-300) Urine Color Yellow Urine Clarity Slightly-cloudy Urine pH 5.0 pH (4.8-9.5) Urine Specific [place] 1.016 Urine Protein 30 mg/dL (NEGATIVE) Urine Glucose (UA) Negative mg/dL (NEGATIVE) Urine Ketones Negative mg/dL (NEGATIVE) Urine Blood Small (NEGATIVE) Urine Nitrite Negative (NEGATIVE) Urine Bilirubin Negative (NEGATIVE) Urine Urobilinogen Negative mg/dL (0.2-1.9) Urine Leukocyte Esterase Large (NEGATIVE) Urine RBC 10 /HPF (0-2/HPF) Urine WBC 111 /HPF (0-5/HPF) Urine WBC Clumps Mod /HPF Urine Squamous Epithelial Cells Moderate /LPF (NONE-FEW) Urine Bacteria Negative /HPF (NONE-FEW) Urine Mucus None /HPF (NONE-FEW) Chemistry Test 01/17/18 08:14 01/17/18 08:50 White Blood Count 8.0 k/uL (4.5-11.0) Red Blood Count 4.56 M/uL (4.00-5.60) Hemoglobin 13.6 g/dL (14.0-18.0) Hematocrit 39.1 % (42.0-52.0) Mean Corpuscular Volume 85.9 fL (80.0-96.0) Mean Corpuscular Hemoglobin 29.8 pg (26.0-33.0) Mean Corpuscular Hemoglobin Concent 34.7 g/dL (32.0-36.0) Red Cell Distribution Width 15.6 % (11.5-14.5) Platelet Count 193 K/uL (150-450) Mean Platelet Volume 8.0 fL (7.2-11.1) Neutrophils (%) (Auto) 86.0 % (39.4-72.5) Lymphocytes (%) (Auto) 7.9 % (17.6-49.6) Monocytes (%) (Auto) 5.7 % (4.1-12.4) Eosinophils (%) (Auto) 0.0 % (0.4-6.7) Basophils (%) (Auto) 0.4 % (0.3-1.4) Nucleated RBC Relative Count (auto) 0.1 /100WBC Neutrophils # (Auto) 6.9 K/uL (2.0-7.4) Lymphocytes # (Auto) 0.6 K/uL (1.3-3.6) Monocytes # (Auto) 0.5 K/uL (0.3-1.0) Eosinophils # (Auto) 0.0 K/uL (0.0-0.5) Basophils # (Auto) 0.0 K/uL (0.0-0.1) Nucleated RBC Absolute Count (auto) 0.00 K/uL Glomerular Filtration Rate Calc 20.8 Calcium Level 10.1 mg/dl (8.4-10.2) Total Bilirubin 1.2 mg/dl (0.2-1.3) Aspartate Amino Transf (AST/SGOT) 27 U/L (0-35) Alanine Aminotransferase (ALT/SGPT) 24 U/L (0-56) Alkaline Phosphatase 73 U/L (0-126) Total Protein 8.6 g/dl (6.3-8.2) Albumin 4.6 g/dl (3.5-5.0) Lipase 85 U/L (23-300) Urine Color Yellow Urine Clarity Slightly-cloudy Urine pH 5.0 pH (4.8-9.5) Urine Specific [place] 1.016 Urine Protein 30 mg/dL (NEGATIVE) Urine Glucose (UA) Negative mg/dL (NEGATIVE) Urine Ketones Negative mg/dL (NEGATIVE) Urine Blood Small (NEGATIVE) Urine Nitrite Negative (NEGATIVE) Urine Bilirubin Negative (NEGATIVE) Urine Urobilinogen Negative mg/dL (0.2-1.9) Urine Leukocyte Esterase Large (NEGATIVE) Urine RBC 10 /HPF (0-2/HPF) Urine WBC 111 /HPF (0-5/HPF) Urine WBC Clumps Mod /HPF Urine Squamous Epithelial Cells Moderate /LPF (NONE-FEW) Urine Bacteria Negative /HPF (NONE-FEW) Urine Mucus None /HPF (NONE-FEW) Urinalysis Test 01/17/18 08:50 Urine Color Yellow Urine Clarity Slightly-cloudy Urine pH 5.0 pH (4.8-9.5) Urine Specific [place] 1.016 Urine Protein 30 mg/dL (NEGATIVE) Urine Glucose (UA) Negative mg/dL (NEGATIVE) Urine Ketones Negative mg/dL (NEGATIVE) Urine Blood Small (NEGATIVE) Urine Nitrite Negative (NEGATIVE) Urine Bilirubin Negative (NEGATIVE) Urine Urobilinogen Negative mg/dL (0.2-1.9) Urine Leukocyte Esterase Large (NEGATIVE) Urine RBC 10 /HPF (0-2/HPF) Urine WBC 111 /HPF (0-5/HPF) Urine WBC Clumps Mod /HPF Urine Squamous Epithelial Cells Moderate /LPF (NONE-FEW) Urine Bacteria Negative /HPF (NONE-FEW) Urine Mucus None /HPF (NONE-FEW) ED Course/Re-evaluation ED Course 01/17/2018 10:55:34 am 82-year-old male with multiple chronic medical problems including atrial fibrillation. He presented to the emergency department with 2-3 days of nausea vomiting and diarrhea. No hematochezia or hematemesis. No abdominal pain in need of imaging. He received IV fluids with Zofran as well as diltiazem for his rapid ventricular rate. His weight is now controlled and he is able to take by mouth. He states he feels back to his baseline. A repeat abdominal exam still without tenderness to palpation. His UA shows leukocyte esterase, but no other evidence of a UTI. A urine culture was sent. Do not think he needs antibiotic treatment at this time. Take his RVR was a combination of not taking his medications as well as dehydration. I counseled him to continue to drink plenty of fluids and follow-up with his primary care physician early next week. Decision to Disposition Date: Jan 17, 2018 Decision to Disposition Time: 10:14 Depart Departure Latest Vital Signs Vital Signs Date Time Temp Pulse Resp B/P (MAP) Pulse Ox O2 Delivery O2 Flow Rate FiO2 01/17/18 10:15 98 32 91 01/17/18 10:00 122/77 (92) 01/17/18 08:00 98.7 Room Air Impression: Primary Impression: Nausea & vomiting Additional Impression: UNSPECIFIED ATRIAL FIBRILLATION Condition: Improved Disposition: HOME OR SELF-CARE Referrals: RICKI JIMENEZ MD (PCP) Patient Instructions: Acute Nausea and Vomiting (ED) Additional Instructions: Continue to drink plenty of fluids. You were given your home medication of diltiazem while you were in the emergency department today. Please take only one dose of metoprolol 25 mg this evening. Tomorrow with your regular medication regimen. Problem Qualifiers Primary Impression: Nausea & vomiting Vomiting type: unspecified Vomiting Intractability: non-intractable Qualified Codes: R11.2 - Nausea with vomiting, unspecified JENNIFER CLAYTON MD Jan 17, 2018 08:04
[2018-01-17] MEDS ORDERED: ONDANSETRON 4 MG/2 ML VIAL IVP ONE (08:20)
[2018-01-17] MEDS ORDERED: NS(*) 0.9% 1000 ML BAG 1,000 ML IV ONE (08:20)
[2018-01-17] MEDS ORDERED: DILTIAZEM 5 MG/ML 5ML IVPUSH IVP ONE (08:20)
[2018-01-17 08:28] LABS: PLATELET COUNT, AUTOMATED 193 K/uL (150-450)
--- NOTE | 2018-01-17 09:25 | EKG ---
FACILITY: [facility] [place] PATIENT NAME: GISELLE JEAN : [id number] MR: [id number] V: [id number] EXAM DATE: ORDERING PHYSICIAN: JENNIFER CLAYTON TECHNOLOGIST: EJ Dodd Reason : Blood Pressure : / mmHG Vent. Rate : 131 BPM Atrial Rate : 174 BPM P-R Int : 000 ms QRS Dur : 090 ms QT Int : 346 ms P-R-T Axes : 000 078 124 degrees QTc Int : 510 ms Atrial fibrillation with rapid ventricular response ST and T wave abnormality, consider anterolateral ischemia or digitalis effect Abnormal ECG When compared with ECG of 23-AUG-2017 08:50, Nonspecific T wave abnormality now evident in Inferior leads T wave inversion now evident in Anterolateral leads Confirmed by SUNI WATERMAN ([id number]) on 01/17/2018 10:19:46 AM Referred By: Confirmed By:SUNI WATERMAN
[2018-01-17] MEDS ORDERED: DILTIAZEM CD 180 MG CAPCR PO ONE (09:50)
[2018-01-17 10:00] VITALS: BP 122/77
== END 2018-01-17 10:37 | disposition home or self-care (01) ==
LOC: ER 07:59
DX: I48.91 Unspecified atrial fibrillation (principal); R11.2 Nausea with vomiting, unspecified
CPT/HCPCS: 81001; 83690; 85025; 87088; 93005; 96361; 96374; 96375; 99284; A9270; J2405; J3490; J7030; 82040; 82247; 82310; 82374; 82435; 82565; 82947; 84075; 84132; 84155; 84295; 84450; 84460; 84520

== ENCOUNTER 2018-01-22 17:38 | Inpatient (IN) | payer MEDICARE, BC ==
[~2018-01-22] VITALS: Ht 182.9 cm; Wt 78.7 kg
--- NOTE | 2018-01-22 18:18 | ER Report ---
History and Physical Time Seen By MD: 17:48 Hx. of Stated Complaint: PT SENT FROM PRIMARY, DEHYDRATION HPI/ROS CHIEF COMPLAINT: Elevated creatinine, weakness HISTORY OF PRESENT ILLNESS: 82-year-old male patient presents to emergency room with complaint of elevated creatinine, weakness. Patient states that he has had a 10 day course of vomiting, diarrhea. Patient states that that has seemed to improve over the last few days. Patient states that he's been having a hard time getting up to get something to eat or drink. Patient states he's been feeling very weak at home. He states that he has started to feel better. Patient was able to walk into the emergency room. He denies having any current fevers, chills, current nausea, vomiting or diarrhea. Patient saw his primary care provider today, Dr. Pascual, who checked some labs and call them this afternoon requested they come into the emergency room for further evaluation due to the elevated creatinine. Patient probably runs a 2.1 creatinine, however today he was 3.8. REVIEW OF SYSTEMS: Respiratory: No cough, no dyspnea. Cardiovascular: No chest pain, no palpitations. Gastrointestinal: As noted above Musculoskeletal: No back pain. Allergies: Coded Allergies: Sulfa (Sulfonamide Antibiotics) (Verified Adverse Reaction, Mild, RASH, 06/01) Home Meds Reported Medications Multivitamin (CHEWABLE-CHAVA) 1 Each Tab.chew, 1 TAB.CHEW PO DAILY, 12/26/17 Diltiazem Hcl (CARTIA XT) 180 Mg Cap.er.24h, 1 CAP PO DAILY 12/26/17 Sodium Bicarbonate (SODIUM BICARBONATE) Unknown Strength Tablet, 2 TAB PO DAILY Sodium Bicarb 10gr tab- 2 tabs po daily 12/26/17 Furosemide (LASIX) 40 Mg Tablet, 1 TAB PO DAILY Y for edma & dyspnea, #30 TAB May take 1 pill daily as needed for Edema & dyspnea, if needed for more than 2 days in a row, call and follow up with Primary care Physician 11/24/16 Warfarin Sodium (COUMADIN) 5 Mg Tablet, 5 MG PO QDAY, #30 11/24/16 Metoprolol Tartrate (METOPROLOL TARTRATE) 25 Mg Tablet, 1 TAB PO BID 10/11/16 Past Medical/Surgical History Patient has a past medical history of irregular heartbeat, tachycardia, hypertension, ulcerative colitis, frequent UTIs, BPH, patient does do self catheters, arthritis, diabetes, alcohol abuse, prostate cancer. Patient has surgical history of bowel resection with colostomy, septoplasty, removal of a growth on neck. Reviewed Nurses Notes: Yes Hx Smoking: Yes Smoking Status: Former Smoker Hx Substance Use Disorder: No Hx Alcohol Use: Yes (Quit drinking in 1992. Active AA member. 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.) Constitutional Vital Sign - Last 24 Hours 01/22/18 01/22/18 01/22/18 01/22/18 17:44 17:47 17:53 18:00 Temp 97.8 Pulse 100 98 Resp 16 B/P (MAP) 134/100 134/100 (111) 118/92 (101) Pulse Ox 91 97 O2 Delivery Room Air 01/22/18 01/22/18 01/22/18 01/22/18 18:23 18:30 18:38 18:43 Pulse 103 120 108 B/P (MAP) 111/88 (96) Pulse Ox 96 94 97 01/22/18 01/22/18 01/22/18 01/22/18 18:58 19:00 19:13 19:36 Pulse 111 106 B/P (MAP) 136/81 (99) 139/97 (111) Intake and Output 01/22/18 01/22/18 01/23/18 14:59 22:59 06:59 Intake Total 1000 ml Balance 1000 ml Physical Exam General Appearance: The patient is alert, has no immediate need for airway protection and no current signs of toxicity. Respiratory: Chest is non tender, lungs are clear to auscultation. Cardiac: regular rate and rhythm Gastrointestinal: Abdomen is soft and non tender, no masses, bowel sounds normal. Musculoskeletal: Neck: Neck is supple and non tender. Extremities have full range of motion and are non tender. Skin: No rashes or lesions. DIFFERENTIAL DIAGNOSIS: After history and physical exam differential diagnosis was considered for dehydration, urinary tract infection. Medical Decision Making Data Points Result Diagram: 01/22/181913 Laboratory Hematology Test 01/22/18 19:14 01/22/18 20:00 Sodium Level 135 mmol/L (137-145) Potassium Level 3.5 mmol/L (3.5-5.0) Chloride Level 99 mmol/L (98-107) Carbon Dioxide Level 20 mmol/L (22-30) Blood Urea Nitrogen 99 mg/dl (9-21) Creatinine 3.60 mg/dl (0.66-1.25) Glomerular Filtration Rate Calc 16.2 Random Glucose 157 mg/dl (75-110) Calcium Level 8.8 mg/dl (8.4-10.2) Urine Color Yellow Urine Clarity Slightly-cloudy Urine pH 5.0 pH (4.8-9.5) Urine Specific [place] 1.013 Urine Protein Negative mg/dL (NEGATIVE) Urine Glucose (UA) Negative mg/dL (NEGATIVE) Urine Ketones Negative mg/dL (NEGATIVE) Urine Blood Small (NEGATIVE) Urine Nitrite Negative (NEGATIVE) Urine Bilirubin Negative (NEGATIVE) Urine Urobilinogen Negative mg/dL (0.2-1.9) Urine Leukocyte Esterase Large (NEGATIVE) Urine RBC 2 /HPF (0-2/HPF) Urine WBC 6 /HPF (0-5/HPF) Urine Squamous Epithelial Cells None /LPF (NONE-FEW) Urine Bacteria Negative /HPF (NONE-FEW) Urine Mucus None /HPF (NONE-FEW) Chemistry Test 01/22/18 19:14 01/22/18 20:00 Glomerular Filtration Rate Calc 16.2 Calcium Level 8.8 mg/dl (8.4-10.2) Urine Color Yellow Urine Clarity Slightly-cloudy Urine pH 5.0 pH (4.8-9.5) Urine Specific [place] 1.013 Urine Protein Negative mg/dL (NEGATIVE) Urine Glucose (UA) Negative mg/dL (NEGATIVE) Urine Ketones Negative mg/dL (NEGATIVE) Urine Blood Small (NEGATIVE) Urine Nitrite Negative (NEGATIVE) Urine Bilirubin Negative (NEGATIVE) Urine Urobilinogen Negative mg/dL (0.2-1.9) Urine Leukocyte Esterase Large (NEGATIVE) Urine RBC 2 /HPF (0-2/HPF) Urine WBC 6 /HPF (0-5/HPF) Urine Squamous Epithelial Cells None /LPF (NONE-FEW) Urine Bacteria Negative /HPF (NONE-FEW) Urine Mucus None /HPF (NONE-FEW) Urinalysis Test 01/22/18 20:00 Urine Color Yellow Urine Clarity Slightly-cloudy Urine pH 5.0 pH (4.8-9.5) Urine Specific [place] 1.013 Urine Protein Negative mg/dL (NEGATIVE) Urine Glucose (UA) Negative mg/dL (NEGATIVE) Urine Ketones Negative mg/dL (NEGATIVE) Urine Blood Small (NEGATIVE) Urine Nitrite Negative (NEGATIVE) Urine Bilirubin Negative (NEGATIVE) Urine Urobilinogen Negative mg/dL (0.2-1.9) Urine Leukocyte Esterase Large (NEGATIVE) Urine RBC 2 /HPF (0-2/HPF) Urine WBC 6 /HPF (0-5/HPF) Urine Squamous Epithelial Cells None /LPF (NONE-FEW) Urine Bacteria Negative /HPF (NONE-FEW) Urine Mucus None /HPF (NONE-FEW) ED Course/Re-evaluation ED Course Patient was admitted and examined, history and physical were obtained. Differential diagnoses were considered. On examination lungs were clear, heart was regular. Patient had no abdominal pain on palpation. An IV was started, patient received a liter of normal saline. A repeat BMP was done. At that time his creatinine was 3.6, however his BUN was 99. I believe that he is very dehydrated. I did discuss the case with Dr. Saeed, hospitalist. He did agree to accept the patient for admission, he requested that a urinalysis. Obtain. We did get the patient set up and is able to do self catheter in the emergency room. We sent that him and he did have 6 white blood cells per high-power field but with a negative leukocyte esterase. Culture was obtained of the urine. Patient will be admitted for dehydration and weakness. Decision to Disposition Date: Jan 22, 2018 Decision to Disposition Time: 20:05 Depart Departure Latest Vital Signs Vital Signs Date Time Temp Pulse Resp B/P (MAP) Pulse Ox O2 Delivery O2 Flow Rate FiO2 01/22/18 19:36 139/97 (111) 01/22/18 19:13 106 01/22/18 18:43 97 01/22/18 17:44 97.8 16 Room Air Impression: Primary Impression: Dehydration Additional Impression: Weakness Condition: Condition Unchanged Disposition: Admitted from ER Referrals: RICKI JIMENEZ MD (PCP) Problem Qualifiers TAISHA DALTON Jan 22, 2018 18:18
[2018-01-22] MEDS ORDERED: NS(*) 0.9% 1000 ML BAG 1,000 ML IV ONE (18:20)
[2018-01-22] MEDS: NS(*) 0.9% 500 ML BAG 500 ML IV PRN (19:35)
[2018-01-22 21:15] VITALS: BP 145/95
[2018-01-22] MEDS ORDERED: NS(*) 0.9% 1000 ML BAG 1,000 ML IV PRN (21:40)
[2018-01-22] MEDS ORDERED: INFLUENZA VIRUS VAC 0.5 ML SYR IM ONLY ONE (21:40)
--- NOTE | 2018-01-22 22:15 | History & Physical ---
History of Present Illness Chief Complaint Diarrhea, nausea, and vomiting History of Present Illness 82yo male with PMHx significant for chronic a-fib, prostate cancer s/p radiation with metastatic disease, ulcerative colitis s/p colectomy, neurogenic bladder with self-cath and recurrent UTIs. He reports onset of "food poisoning" about a week ago. He believes he ate "some old leftovers". He had 4-5 days of nausea, vomiting, and diarrhea. No black or bloody stools. No bloody emesis. He denied any fevers or chills. No abdominal pain, but some cramps. He did notice a drop off in amount of urine with the self-caths. He also noted some generalized weakness and malaise. He was evaluated in the outpatient clinic and ER today. He was found to be dehydrated with ISELA. He was recommended for admission. 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 (7) Prostate cancer metastatic to multiple sites Status: Chronic (8) Self-catheterizes urinary bladder Status: Chronic (9) Diabetes mellitus type 2, diet-controlled Status: Chronic (10) S/P colectomy Status: Resolved Home Meds Reported Medications Multivitamin (CHEWABLE-CHAVA) 1 Each Tab.chew, 1 TAB.CHEW PO DAILY, 12/26/17 Diltiazem Hcl (CARTIA XT) 180 Mg Cap.er.24h, 1 CAP PO DAILY 12/26/17 Sodium Bicarbonate (SODIUM BICARBONATE) Unknown Strength Tablet, 2 TAB PO DAILY Sodium Bicarb 10gr tab- 2 tabs po daily 12/26/17 Furosemide (LASIX) 40 Mg Tablet, 1 TAB PO DAILY Y for edma & dyspnea, #30 TAB May take 1 pill daily as needed for Edema & dyspnea, if needed for more than 2 days in a row, call and follow up with Primary care Physician 11/24/16 Warfarin Sodium (COUMADIN) 5 Mg Tablet, 5 MG PO QDAY, #30 11/24/16 Metoprolol Tartrate (METOPROLOL TARTRATE) 25 Mg Tablet, 1 TAB PO BID 10/11/16 Allergies: Coded Allergies: Sulfa (Sulfonamide Antibiotics) (Verified Adverse Reaction, Mild, RASH, 06/01) Patient History: FH: arthritis FATHER, FH: diabetes mellitus MOTHER, Ana Gehrig's disease BROTHER OR SISTER Hx Smoking: Yes Smoking Status: Former Smoker Caffeine Intake: Coffee Caffeine/Cups Per Day: 1-2 Hx Alcohol Use: Yes (Quit drinking in 1992. Active AA member. 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.) Hx Substance Use Disorder: No Social Drug Use: Never Review of Systems Constitutional: No Fever, No Chills Neurological: Weakness, Dizziness, No Syncope Eyes: No Vision Change, No Loss of Vision ENT: No Hearing Loss, No Sinus Congestion Cardiovascular: Orthostatic Hypotension, No Chest Pain, No Palpitations Respiratory: No Shortness of Breath, No Cough, No Wheezing Gastrointestinal: Nausea, Vomiting, Diarrhea, No Dysphagia, No Constipation, No Hematemesis, No Hematochezia, No Melena, No Abdominal Pain Genitourinary: No Dysuria, No Hematuria Musculoskeletal: No Pain Psychiatric: No Depression, No Anxiety Exam Vital Signs Vital Signs Date Time Temp Pulse Resp B/P (MAP) Pulse Ox O2 Delivery O2 Flow Rate FiO2 01/22/18 21:00 128/91 (103) 01/22/18 20:35 101 94 01/22/18 17:44 97.8 16 Room Air General Appearance: Alert, Awake Neuro: No Gross deficits Eyes: PERRLA ENT: Oropharynx Clear, Other (mucosa dry) Neck: No Masses Cardiovascular: Other (Irregular distant tones) Respiratory: Clear to Auscultation Chest: No Tenderness GI: Abd Soft and Non-Tender, Other (RLQ ileostomy) : No CVA Tenderness Lymph: No Adenopathy Extremities: Warm, Perfused Psych: Alert & Oriented X3 Medical Decision Making Data Points Result Diagram: 01/22/18 1914 Item Value Date Time INR (Fingerstick) 1.8 01/22/18 1108 Urine Color Yellow 01/22/181999 Urine Clarity Slightly-cloudy 01/22/181999 Urine pH 5.0 pH 01/22/181999 Urine Specific [place] 1.013 01/22/181999 Urine Protein Negative mg/dL 01/22/181999 Urine Glucose (UA) Negative mg/dL 01/22/181999 Urine Ketones Negative mg/dL 01/22/181999 Urine Blood Small 01/22/181999 Urine Nitrite Negative 01/22/181999 Urine Bilirubin Negative 01/22/181999 Urine Urobilinogen Negative mg/dL 01/22/181999 Urine Leukocyte Esterase Large H 01/22/181999 Urine RBC 2 /HPF 01/22/181999 Urine WBC 6 /HPF 01/22/181999 Urine Squamous Epithelial Cells None /LPF 01/22/181999 Urine Bacteria Negative /HPF 01/22/181999 Urine Mucus None /HPF 01/22/181999 White Blood Count 8.7 k/uL 01/22/18 1149 Hemoglobin 15.0 g/dL 01/22/18 1149 Hematocrit 42.5 % 01/22/18 1149 Platelet Count 231 K/uL 01/22/18 1149 Assessment and Plan Problems: (1) Acute on chronic renal failure Status: Acute Assessment & Plan: Due to dehydration secondary to poor intake and ileostomy losses. It sounds as if he may have an acute gastroenteritis (or possibly a "food poisoning"). His symptoms have improved, but still needs fluid replacement. Will place on IV fluids. He will also take oral. Will watch labs/ output. (2) Gastroenteritis Status: Acute Assessment & Plan: Sounds like it was fairly severe, but now resolved. Watch. (3) Prostate cancer metastatic to multiple sites Status: Chronic Assessment & Plan: He has had previous radiation therapy and follows with Dr. Pearson. He will continue his self-cath QID. (4) Self-catheterizes urinary bladder Status: Chronic (5) Chronic atrial fibrillation Status: Chronic Assessment & Plan: He is on metoprolol, diltiazem, warfarin. Will watch INR and continue rate control medications with parameters. Copies to: RICKI JIMENEZ MD Venous Thromboembolism Antithrombotics Is Pt On Any Antithrombotics?: Yes Exam Sepsis Risk: No Definite Risk CASPER SCOTT MD Jan 22, 2018 22:15
[2018-01-22] MEDS ORDERED: MULT-813 PO (22:58)
[2018-01-23 05:28] VITALS: BP 123/75
[2018-01-23 05:42] LABS: PLATELET COUNT, AUTOMATED 146 K/uL (150-450)
[2018-01-23 05:52] LABS: INR 1.7
--- NOTE | 2018-01-23 08:40 | Hospitalist Depart ---
Discharge Summary Reason for Hosp/Final Diag: (1) Acute on chronic renal failure Status: Acute Hospital Course & Plan: Due to dehydration secondary to poor intake and ileostomy losses. It sounds as if he may have had an acute gastroenteritis (or possibly a "food poisoning"). His symptoms have improved. He was placed on IV fluids. He is able to eat and drink without difficulty now. Creatinine has shown improvement to almost baseline this morning. (2) Gastroenteritis Status: Acute Hospital Course & Plan: Sounds like it was fairly severe, but now resolved. (3) Prostate cancer metastatic to multiple sites Status: Chronic Hospital Course & Plan: He has had previous radiation therapy and follows with Dr. Pearson. He will continue his self-cath QID. (4) Self-catheterizes urinary bladder Status: Chronic (5) Chronic atrial fibrillation Status: Chronic Hospital Course & Plan: He is on metoprolol, diltiazem, warfarin. Departure Latest Vital Signs Vital Signs 01/23/18 05:28 Temp 98.0 Pulse 99 Resp 18 B/P (MAP) 123/75 (91) Pulse Ox 98 O2 Delivery Room Air Weight (Pounds): 173 Weight (Ounces): 8.0 Result Diagram: 01/23/1852801/23/18528 Condition: Improved Discharge: Home, Self Care Discharge Instructions Home Meds Reported Medications Multivitamin (CHEWABLE-CHAVA) 1 Each Tab.chew, 2 EACH PO DAILY, TAB.CHEW 01/22/18 Diltiazem Hcl (CARTIA XT) 180 Mg Cap.er.24h, 1 CAP PO DAILY 12/26/17 Sodium Bicarbonate (SODIUM BICARBONATE) Unknown Strength Tablet, 2 TAB PO DAILY Sodium Bicarb 10gr tab- 2 tabs po daily 12/26/17 Furosemide (LASIX) 40 Mg Tablet, 1 TAB PO DAILY Y for edma & dyspnea, #30 TAB May take 1 pill daily as needed for Edema & dyspnea, if needed for more than 2 days in a row, call and follow up with Primary care Physician 11/24/16 Warfarin Sodium (COUMADIN) 5 Mg Tablet, 5 MG PO QDAY, #30 11/24/16 Metoprolol Tartrate (METOPROLOL TARTRATE) 25 Mg Tablet, 1 TAB PO BID 10/11/16 Discontinued Reported Medications Multivitamin (CHEWABLE-CHAVA) 1 Each Tab.chew, 1 TAB.CHEW PO DAILY, 12/26/17 Diet: Regular Activity: As Tolerated Copies to: RICKI JIMENEZ MD Venous Thromboembolism Antithrombotics Is Pt On Any Antithrombotics?: Yes ADELIA BO SENIOR SERVICE TECHNICIAN Jan 23, 2018 08:40
[2018-01-23] MEDS ORDERED: METOPROLOL TART 50 MG TAB PO SCH (09:00)
[2018-01-23] MEDS ORDERED: DILTIAZEM CD 180 MG CAPCR PO SCH (09:00)
[2018-01-23] MEDS: NS(*) 0.9% 500 ML BAG 500 ML IV PRN (09:13)
[2018-01-23] MEDS ORDERED: WARFARIN SOD 5 MG TAB PO SCH (13:00)
[2018-01-23 13:06] VITALS: Ht 182.9 cm; Wt 78.7 kg
== END 2018-01-23 12:05 | disposition home or self-care (01) | DRG 392 ==
LOC: ER 17:47 → MED 20:28
PROVIDERS: ADMIT Internal Medicine; ATTEND Internal Medicine
DX: A05.9 Bacterial foodborne intoxication, unspecified (principal); N17.9 Acute kidney failure, unspecified; I13.0 Hypertensive heart and chronic kidney disease with heart failure and stage 1 through stage 4 chronic kidney disease, or unspecified chronic kidney disease; I50.22 Chronic systolic (congestive) heart failure; E11.22 Type 2 diabetes mellitus with diabetic chronic kidney disease; E86.0 Dehydration; N18.9 Chronic kidney disease, unspecified; C61 Malignant neoplasm of prostate; I48.2 Chronic atrial fibrillation; N40.0 Benign prostatic hyperplasia without lower urinary tract symptoms; F10.21 Alcohol dependence, in remission; Z87.891 Personal history of nicotine dependence; Z88.2 Allergy status to sulfonamides; Z79.01 Long term (current) use of anticoagulants; Z87.440 Personal history of urinary (tract) infections; Z93.2 Ileostomy status; Z92.3 Personal history of irradiation
CPT/HCPCS: 36415; 81001; 82040; 82247; 82310; 82374; 82435; 82565; 82947; 84075; 84132; 84155; 84295; 84450; 84460; 84520; 85025; 85610; 87077; 87088; 87186; J7030; J7040

== ENCOUNTER → 2018-01-22 | Outpatient (CLI) | payer MEDICARE, BC ==
[2017-08-23 15:48] VITALS: BMI 22.0
[~2018-01-22] MED LIST changes: -BICA50TA36 PO; +BICA50TA41 PO
[2018-01-22 12:02] LABS: PLATELET COUNT, AUTOMATED 231 K/uL (150-450)
== END ==
LOC: LAB 11:43
PROVIDERS: ATTEND Pharmacist Pharmacotherapy
DX: R19.7 Diarrhea, unspecified (principal)
CPT/HCPCS: 36415; 82040; 82247; 82310; 82374; 82435; 82565; 82947; 84075; 84132; 84155; 84295; 84450; 84460; 84520; 85025

== ENCOUNTER → 2018-02-26 | Outpatient (CLI) | payer MEDICARE, BC ==
[2018-01-23 13:06] VITALS: BMI 23.5
[2018-02-26 10:20] LABS: PLATELET COUNT, AUTOMATED 153 K/uL (150-450)
== END ==
LOC: LAB 09:49
PROVIDERS: ATTEND Family Medicine
DX: E11.9 Type 2 diabetes mellitus without complications (principal); N18.9 Chronic kidney disease, unspecified
CPT/HCPCS: 36415; 82040; 82247; 82310; 82374; 82435; 82565; 82947; 83036; 84075; 84132; 84155; 84295; 84450; 84460; 84520; 85025

== ENCOUNTER 2018-05-19 08:37 | Emergency (ER) | payer MEDICARE, BC ==
[2018-03-21 08:43] VITALS: Wt 81.9 kg
[~2018-05-19 08:37] MED LIST changes: +ENOX40DI9 SQ; +HYDR-653 PO; +LEVO250T55 PO; +RANI-366 PO
[2018-05-19] MEDS ORDERED: PROPARACAI/FLUORESCEIN 5 ML OP DROPS OU ONE (09:05)
--- NOTE | 2018-05-19 09:19 | ER Report ---
History and Physical Time Seen By MD: 09:09 Hx. of Stated Complaint: PT HAS RED IRRITATED L EYE X2 WEEKS, NO MEMORY OF TRAUMA HPI/ROS CHIEF COMPLAINT: Left eye red HISTORY OF PRESENT ILLNESS: Patient is an 83-year-old male who presents to the emergency department for evaluation of a red eye. States that a few days ago one of his friends noticed that his eye looked very red. Patient has been using Visine [id number] without any significant change. Patient states he feels as if the eye is slightly irritated but has no true pain. States he feels as if he has to blink a lot. Denies any change in his vision. Denies any other symptoms. Allergies: Coded Allergies: Sulfa (Sulfonamide Antibiotics) (Verified Adverse Reaction, Mild, RASH, 01/22/18) Home Meds Active Scripts Ranitidine Hcl (ZANTAC) 150 Mg Tablet, 150 MG PO BID, #60 TAB Prov:ADELIA BO Kaleigh HR SHARED SERVICES CONSULTANT 03/21/18 Reported Medications Multivitamin (CHEWABLE-CHAVA) 1 Each Tab.chew, 2 EACH PO DAILY, TAB.CHEW 01/22/18 Diltiazem Hcl (CARTIA XT) 180 Mg Cap.er.24h, 1 CAP PO DAILY 12/26/17 Sodium Bicarbonate (SODIUM BICARBONATE) Unknown Strength Tablet, 2 TAB PO DAILY Sodium Bicarb 10gr tab- 2 tabs po daily 12/26/17 Warfarin Sodium (COUMADIN) 5 Mg Tablet, 5 MG PO QDAY, #30 11/24/16 Metoprolol Tartrate (METOPROLOL TARTRATE) 25 Mg Tablet, 1 TAB PO BID 10/11/16 Past Medical/Surgical History Patient is on warfarin Hx Smoking: No Smoking Status: Former Smoker Hx Substance Use Disorder: No Hx Alcohol Use: No Constitutional Vital Sign - Last 24 Hours 05/19/18 05/19/18 08:43 09:50 Temp 97.9 Pulse 94 Resp 18 16 B/P (MAP) 146/96 125/79 (94) Pulse Ox 91 O2 Delivery Room Air Physical Exam General Appearance: Alert, no distress. Eyes: Pupils equal and round no pallor. Pupils are equal. Right right eye has large subconjunctival hemorrhage with small amount of ecchymosis. There is no discharge. There is no foreign body. The lids were everted no foreign body was seen. Fluorescein exam reveals no uptake. Evidence of corneal abrasion or dendrites. Skin: Periorbital skin is not inflamed. [ ] DIFFERENTIAL DIAGNOSIS: After history and physical exam differential diagnosis was considered for a red eye including but not limited to subconjunctival hemorrhage, hyphema, foreign body, conjunctivitis, iritis and corneal abrasion. Medical Decision Making ED Course/Re-evaluation ED Course 05/19/2018 9:17:46 am Patient with large subconjunctival hemorrhage. Plan will be symptomatic treatment with saline drops cool compresses. We'll have patient follow up with Dr. Wang in one week. Decision to Disposition Date: May 19, 2018 Decision to Disposition Time: 09:18 Depart Departure Latest Vital Signs Vital Signs Date Time Temp Pulse Resp B/P (MAP) Pulse Ox O2 Delivery O2 Flow Rate FiO2 05/19/18 09:50 16 125/79 (94) 05/19/18 08:43 97.9 94 91 Room Air Impression: Primary Impression: Subconjunctival hemorrhage of left eye Condition: Condition Unchanged Disposition: HOME OR SELF-CARE Referrals: RICKI JIMENEZ MD (PCP) GABO WANG OD Follow-up in 1 week's time for reevaluation of the subconjunctival hemorrhage to your left eye. Patient Instructions: Subconjunctival Hemorrhage (ED) Additional Instructions: Artificial tears: 1-2 drops to the left eye as needed for irritation BEAU DODSON MD May 19, 2018 09:19
[2018-05-19] MEDS ORDERED: HYPROMELLOSE 0.4% LUB 15ML BTL OS ONE (09:20)
[2018-05-19 09:50] VITALS: BP 125/79
== END 2018-05-19 09:57 | disposition home or self-care (01) ==
LOC: ER 08:53
DX: H11.32 Conjunctival hemorrhage, left eye (principal)
CPT/HCPCS: 99283; A9270

== ENCOUNTER 2018-06-30 14:00 | Outpatient (RCR) | payer MEDICARE, BC ==
[2018-03-21 08:43] VITALS: BMI 23.8
[2018-06-30 14:55] LABS: PLATELET COUNT, AUTOMATED 170 K/uL (150-450)
[2018-07-01 14:29] VITALS: BP 124/72
--- NOTE | 2018-07-05 16:05 | ONCOLOGY FOLLOW UP NOTE ---
EVENT DATE: July 01, 2018 CHIEF COMPLAINT Followup for prostate cancer. HISTORY OF PRESENT ILLNESS Patient is an 83-year-old male who was seen today in one-year followup for prostate cancer. Overall, he is doing well. He continues to in-and-out cath himself approximately three times per day for residual, but is managing this without issue. He had a recent fall two or three weeks ago, stating he "tripped." He denies significant bone pain. Urine stream is good, and he only has one episode of nocturia per night. He continues Lupron injections under the direction of Dr. Pearson. ONCOLOGY HISTORY Patient was diagnosed with prostate cancer with metastatic disease to the bone with an initial PSA of 136 on 08/02/16. He completed radiation in September 2016. PSA has remained undetectable since that time. He also has a history of obstructive uropathy which requires self-catheterization three times per day. MEDICAL HISTORY 1. Prostate cancer July 2016. 2. BPH. 3. Atrial fibrillation. 4. Hyperlipidemia. 5. Hypertension. 6. Type 2 diabetes. SURGICAL HISTORY 1. Bowel resection with ileostomy placement, 2005. 2. Right knee replacement. 3. Cystoscopy, March 2018, with laser lithotripsy of bladder stone. FAMILY HISTORY Noncontributory. SOCIAL HISTORY Patient is . He has two grown children who live in [place]. 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 He does not smoke. LABORATORY CBC on 06/30/18 showed a WBC of 6.1, hemoglobin 12.2, hematocrit 26.6, platelets 170,000. CMP showed a BUN of 30 and creatinine of 2.1. Random glucose was 163. PSA was 0.99. REVIEW OF SYSTEMS A 12-point review of systems is performed and is negative except as stated above. PHYSICAL EXAMINATION VITAL SIGNS: Blood pressure 124/72, pulse 104, respirations 16, temp 97.4, O2 sat 95%. GENERAL: Patient is a well-developed, well-nourished man in no acute distress. HEAD: Normocephalic, atraumatic. EYES: Sclerae anicteric. MOUTH: Moist mucous membranes. No lesions. NECK: Supple. No palpable adenopathy. LUNGS: Clear bilaterally. CARDIOVASCULAR: Heart rate regular, 104 per minute. ABDOMEN: Soft, nontender, with active bowel sounds. Ileostomy in place. EXTREMITIES: Trace to 1+ pretibial edema bilaterally. NEUROLOGIC: Nonfocal. IMPRESSION AND PLAN The patient is an 83-year-old male diagnosed with prostate cancer in July 2016. He completed radiation therapy in September 2016. He also has a history of obstructive uropathy requiring self-catheterization. 1. Prostate cancer. No physical signs of disease recurrence; however, PSA has increased from undetectable to 0.99. I have reviewed this with Dr. Saenz, who recommends that we repeat PSA in three months. He will be seen after that lab is done. He continues followup with Dr. Pearson for Joi. 2. Chronic renal insufficiency. BUN and creatinine are 30 and 2.1 respectively. This has been stable and not increasing. He does have some lower extremity swelling, but feels he is managing this well. 3. Obstructive uropathy. Continue in-and-out catheterizations three times per day for residual. He is also managing this without issue. 4. Follow up in three months for continued care. CBC, CMP, and PSA will be done before that visit. TERESA
[2018-07-10] MEDS ORDERED: DILT-104 PO (10:26)
[2018-07-10] MEDS ORDERED: METO25TA93 PO (10:26)
[2018-07-10] MEDS ORDERED: FLUT16SP19 NS (10:38)
[2018-07-16] MEDS ORDERED: WARF-1 PO (12:28)
[2018-08-05] MEDS ORDERED: SODI650T7 PO (17:56)
== END 2018-09-25 ==
LOC: RAON 14:00
PROVIDERS: ATTEND Radiology Radiation Oncology
DX: C61 Malignant neoplasm of prostate (principal); I48.91 Unspecified atrial fibrillation; E78.5 Hyperlipidemia, unspecified; N18.9 Chronic kidney disease, unspecified; N13.9 Obstructive and reflux uropathy, unspecified; Z92.3 Personal history of irradiation; I12.9 Hypertensive chronic kidney disease with stage 1 through stage 4 chronic kidney disease, or unspecified chronic kidney disease; E11.22 Type 2 diabetes mellitus with diabetic chronic kidney disease
CPT/HCPCS: 36415; 84153; 85025; G0463; 82040; 82247; 82310; 82374; 82435; 82565; 82947; 84075; 84132; 84155; 84295; 84450; 84460; 84520; 99212

== ENCOUNTER 2018-10-09 12:57 | Outpatient (RCR) | payer MEDICARE, BC ==
[2018-03-21 08:43] VITALS: BMI 23.8
[~2018-10-09 12:57] MED LIST changes: +FLUT16SP19 NS; -RANI-366 PO; +RANI-54 PO
[2018-10-09 14:32] VITALS: BP 129/82
[2018-10-23] MEDS ORDERED: NYST15OI15 TP (15:22)
[2018-10-27] MEDS ORDERED: SODI650T7 PO (09:11)
[2018-11-26] MEDS ORDERED: CALC500T6 PO (09:25)
[2018-11-26] MEDS ORDERED: ASCO-182 PO (09:25)
[2018-11-26] MEDS ORDERED: FLUT16SP19 NS (09:25)
[2018-11-26] MEDS ORDERED: LEU30I IM ONLY (10:12)
== END 2019-01-06 ==
LOC: SPU 12:57
PROVIDERS: ATTEND Radiology Radiation Oncology
DX: C61 Malignant neoplasm of prostate (principal)
CPT/HCPCS: 36415; 82040; 82247; 82310; 82374; 82435; 82565; 82947; 84075; 84132; 84153; 84155; 84295; 84450; 84460; 84520

== ENCOUNTER 2018-10-29 17:20 | Inpatient (IN) | payer MEDICARE, BC ==
[~2018-10-29] VITALS: Ht 182.9 cm; Wt 75.7 kg
[~2018-10-29 17:20] MED LIST changes: +NYST15OI15 TP; +RANI-366 PO; -RANI-54 PO
--- NOTE | 2018-10-29 17:34 | ER Report ---
History and Physical Time Seen By MD: 17:33 Hx. of Stated Complaint: PATIENT REPORTS THAT HIS OSTOMY IS CLOGGED. IT HAS BEEN LIKE THIS FOR AROUND 4 HOURS. HPI/ROS CHIEF COMPLAINT: Ostomy clogged HISTORY OF PRESENT ILLNESS: This is an 83 yo male presents to the ED with his nephew, complaining of abdominal pain and "clogged ostomy. The patient was seen by his primary care provider yesterday, noted to have significant amount of liquid output in his ileostomy. " He states that this started at 1:00 pm today". Reports that in the past he was able to massage site and it would start working. He states that the pain has never been "this severe" in the past. He reports large output of watery stool that last two days prior to it clogging. Denies nausea or vomiting. Denies fever, chills, headache and denies any recent illness. REVIEW OF SYSTEMS: Constitutional: As above. Eyes: No discharge. ENT: No sore throat. Cardiovascular: No chest pain, no palpitations. Respiratory: No cough, no shortness of breath. Gastrointestinal: As above. Genitourinary: No hematuria. Musculoskeletal: No back pain. Skin: No rashes. Neurological: As above. Allergies: Coded Allergies: Sulfa (Sulfonamide Antibiotics) (Verified Adverse Reaction, Mild, RASH, 01/22/18) Home Meds Active Scripts Sodium Bicarbonate (SODIUM BICARBONATE) 650 Mg Tablet, 1 TAB PO BID for 90 Days, #180 TAB 2 Refills Prov:RICKI JIMENEZ MD 10/27/18 Nystatin/Triamcin (NYSTATIN-TRIAMCINOLONE OINTM) 15 Gm Oint...g., 1 GM TP DAILY PRN for prn for 90 Days, #1 TUBE Prov:RICKI JIMENEZ MD 10/23/18 Warfarin Sodium (COUMADIN) 5 Mg Tablet, 1-1.5 TAB PO DIRECTED, #90 TAB 1 Refill Take as directed by provider after INR checks Prov:RICKI JIMENEZ MD 07/16/18 Fluticasone Prop 50 Mcg Ns (FLONASE 50 MCG NS) 16 Gm [place]rapaho.susp, 2 SPRAYS NS QDAY, #1 BOT Prov:RICKI JIMENEZ MD 07/10/18 Diltiazem Hcl (CARTIA XT) 180 Mg Cap.er.24h, 1 CAP PO DAILY for 90 Days, #90 CAP 4 Refills Prov:RICKI JIMENEZ MD 07/10/18 Metoprolol Tartrate (METOPROLOL TARTRATE) 25 Mg Tablet, 1 TAB PO BID for 90 Days, #180 TAB 4 Refills Prov:RICKI JIMENEZ MD 07/10/18 Reported Medications Multivitamin (CHEWABLE-CHAVA) 1 Each Tab.chew, 2 EACH PO DAILY, TAB.CHEW 01/22/18 Past Medical/Surgical History Patient has a medical surgical history of A. fib, thoracentesis 2 in 2018, ulcerative colitis, self catheters, BPH and prostate cancer, he wears dentures and glasses, bowel resection with ileostomy 2016, large intestine removal with undisclosed. Reviewed Nurses Notes: Yes Hx Smoking: No Smoking Status: Former Smoker Hx Substance Use Disorder: No Hx Alcohol Use: No Constitutional Vital Sign - Last 24 Hours 10/29/18 10/29/18 10/29/18 10/29/18 17:25 17:30 18:00 18:07 Temp 97.8 Pulse 88 102 85 Resp 20 B/P (MAP) 133/87 91/54 (66) Pulse Ox 91 94 95 O2 Delivery Room Air 10/29/18 10/29/18 10/29/18 10/29/18 18:15 18:22 18:36 18:37 B/P (MAP) 100/46 (64) 87/59 (68) 87/62 (70) 112/80 (91) 10/29/18 10/29/18 10/29/18 10/29/18 18:42 18:57 19:00 19:12 Pulse 124 104 117 B/P (MAP) 114/76 (89) Pulse Ox 77 84 88 10/29/18 10/29/18 10/29/18 10/29/18 19:27 19:28 19:42 19:47 Pulse 107 106 109 B/P (MAP) 132/72 (92) Pulse Ox 100 93 99 10/29/18 10/29/18 20:00 20:17 Pulse 97 B/P (MAP) 120/76 (91) Pulse Ox 98 Intake and Output 10/29/18 10/29/18 10/30/18 14:59 22:59 06:59 Intake Total 1000 ml Output Total 350 ml Balance 650 ml Physical Exam General Appearance: The patient is alert, has no immediate need for airway protection and no signs of toxicity, appears uncomfortable. Eyes: Pupils equal and round no pallor or injection. ENT, Mouth: Mucous membranes are moist. Respiratory: There are no retractions, lungs are clear to auscultation. Cardiovascular: Regular rate and rhythm, no murmurs. Gastrointestinal: Ostomy is round, red, and moist. Generalized abdominal pain with palpation, no masses, few scattered bowel sounds in all quadrants. Neurological: A&Ox4, moving all extremities. Following all commands. No focal neuro deficits per Skin: Warm and dry, no rashes. Musculoskeletal: Neck is supple non tender. Extremities are nontender, nonswollen and have full range of motion. DIFFERENTIAL DIAGNOSIS: After history and physical exam differential diagnosis was considered for bowel obstruction, constipation, mesenteric ischemia, ostomy blockage. Medical Decision Making Data Points Result Diagram: 10/30/18 0530 10/30/18 0530 Laboratory Hematology Test 10/29/18 18:01 10/29/18 18:46 10/29/18 19:28 Total Bilirubin 0.8 mg/dl (0.2-1.3) Aspartate Amino Transf (AST/SGOT) 35 U/L (0-35) Alanine Aminotransferase (ALT/SGPT) 34 U/L (0-56) Alkaline Phosphatase 77 U/L (0-126) Total Protein 8.4 g/dl (6.3-8.2) Albumin 4.7 g/dl (3.5-5.0) Urine Color Yellow Urine Clarity Cloudy Urine pH 5.0 pH (4.8-9.5) Urine Specific Menard 1.018 Urine Protein 30 mg/dL (NEGATIVE) Urine Glucose (UA) Negative mg/dL (NEGATIVE) Urine Ketones Trace mg/dL (NEGATIVE) Urine Blood Small (NEGATIVE) Urine Nitrite Positive (NEGATIVE) Urine Bilirubin Negative (NEGATIVE) Urine Urobilinogen Negative mg/dL (0.2-1.9) Urine Leukocyte Esterase Moderate (NEGATIVE) Urine RBC 10 /HPF (0-2/HPF) Urine WBC 588 /HPF (0-5/HPF) Urine WBC Clumps Mod /HPF Urine Squamous Epithelial Cells Few /LPF (NONE-FEW) Urine Bacteria Many /HPF (NONE-FEW) Urine Mucus Few /HPF (NONE-FEW) Lactate 1.3 mmol/L (0.7-2.1) Chemistry Test 10/29/18 18:01 10/29/18 18:46 10/29/18 19:28 Total Bilirubin 0.8 mg/dl (0.2-1.3) Aspartate Amino Transf (AST/SGOT) 35 U/L (0-35) Alanine Aminotransferase (ALT/SGPT) 34 U/L (0-56) Alkaline Phosphatase 77 U/L (0-126) Total Protein 8.4 g/dl (6.3-8.2) Albumin 4.7 g/dl (3.5-5.0) Urine Color Yellow Urine Clarity Cloudy Urine pH 5.0 pH (4.8-9.5) Urine Specific Menard 1.018 Urine Protein 30 mg/dL (NEGATIVE) Urine Glucose (UA) Negative mg/dL (NEGATIVE) Urine Ketones Trace mg/dL (NEGATIVE) Urine Blood Small (NEGATIVE) Urine Nitrite Positive (NEGATIVE) Urine Bilirubin Negative (NEGATIVE) Urine Urobilinogen Negative mg/dL (0.2-1.9) Urine Leukocyte Esterase Moderate (NEGATIVE) Urine RBC 10 /HPF (0-2/HPF) Urine WBC 588 /HPF (0-5/HPF) Urine WBC Clumps Mod /HPF Urine Squamous Epithelial Cells Few /LPF (NONE-FEW) Urine Bacteria Many /HPF (NONE-FEW) Urine Mucus Few /HPF (NONE-FEW) Lactate 1.3 mmol/L (0.7-2.1) Urinalysis Test 10/29/18 18:46 Urine Color Yellow Urine Clarity Cloudy Urine pH 5.0 pH (4.8-9.5) Urine Specific Menard 1.018 Urine Protein 30 mg/dL (NEGATIVE) Urine Glucose (UA) Negative mg/dL (NEGATIVE) Urine Ketones Trace mg/dL (NEGATIVE) Urine Blood Small (NEGATIVE) Urine Nitrite Positive (NEGATIVE) Urine Bilirubin Negative (NEGATIVE) Urine Urobilinogen Negative mg/dL (0.2-1.9) Urine Leukocyte Esterase Moderate (NEGATIVE) Urine RBC 10 /HPF (0-2/HPF) Urine WBC 588 /HPF (0-5/HPF) Urine WBC Clumps Mod /HPF Urine Squamous Epithelial Cells Few /LPF (NONE-FEW) Urine Bacteria Many /HPF (NONE-FEW) Urine Mucus Few /HPF (NONE-FEW) Microbiology Microbiology Date/Time Source Procedure Growth Status 10/29/18 19:04 Cath Urine Urine Culture - Preliminary Gram Negative Gil Resulted EKG/Imaging Imaging PATIENT NAME: Trever Shen : 1935 MR: [id number] V: [id number] EXAM DATE: [id number] ORDERING PHYSICIAN: EFRAÍN FINLEY TECHNOLOGIST: Location: [facility] [place] Patient: Trever Shen : 1935 Visit/Account:[id number] Date of Sevice: 10/29/2018 EXAMINATION: Portable AP Chest HISTORY: NG placement COMPARISON: CT abdomen/pelvis performed earlier today. Chest radiograph 12/02/2017. FINDINGS: NG tube present, extending below the diaphragm and looped in the gastric fundus. Small right pleural effusion, better visualized on the earlier CT, with mild right basilar atelectasis. The lungs are otherwise clear. No suspicious focal consolidation. No pneumothorax. Normal cardiomediastinal silhouette. No acute osseous findings in the chest. IMPRESSION: NG tube tip in the stomach. Report Dictated By: Abdifatah Hines MD at 10/29/2018 8:45 PM Report E-Signed By: Abdifatah Hines MD at 10/29/2018 8:52 PM WSN:[id number] Location: [facility] [place] Patient: Trever Shen : 1935 Visit/Account:[id number] Date of Sevice: 10/29/2018 EXAMINATION: CT ABDOMEN AND PELVIS WITHOUT CONTRAST COMPARISON: 12/02/2017 CT. HISTORY: abd pain, eval for obstruction. History metastatic prostate cancer. PROCEDURE: Multiplanar noncontrast CT of the abdomen and pelvis. One of the following dose optimization techniques was utilized in the performance of this exam: Automated exposure control; adjustment of the mA and/or kV according to the patient's size; or use of an iterative reconstruction technique. Specific details can be referenced in the facility's radiology CT exam operational policy. FINDINGS: Evaluation of the solid and viscus parenchymal organs and vascular structures is limited without the benefit of IV contrast. Visualized thorax: Right-sided pleural effusion is unchanged. Right lung base atelectasis versus scarring. No definite acute findings. Liver: Mild lobular appearance to the liver as before. A few subcentimeter low- density foci in the inferior right hepatic lobe are incompletely characterized but unchanged. Gallbladder and biliary system: Cholecystectomy. No bile duct dilation. Spleen: Negative. Pancreas: Chronic calcifications in the uncinate. No noncontrast CT findings of acute inflammation. Adrenal glands: Negative. Kidneys and bladder: Left kidney upper pole 9 mm probable cyst is unchanged. Right kidney lower pole 5 mm probable hyperdense cyst is unchanged. No definite mass. No hydronephrosis. No radiopaque ureteral stone. 4 mm bladder stone; the majority of the bladder stones demonstrated on the prior CT are no longer p resent. Vessels: Aortoiliac advanced atherosclerosis. No abdominal aortic aneurysm. Bowel and mesentery: Colectomy with right lower quadrant ileostomy. Small bowel obstruction with small bowel loops are dilated to 4.6 cm. The site of obstruction is favored to be secondary to a small parastomal hernia. There is mild edema of the herniated bowel. No pneumatosis or extra luminal gas or fluid collection is otherwise identified. Pelvic organs: Mildly heterogeneous prostate appears essentially unchanged. Lymph nodes: No enlarging abdominopelvic lymph nodes. The previously described retrocrural lymph node is more suggestive of a prominent cisterna chyli. Free air/free fluid: None. Abdominal wall and osseous structures: Right lower quadrant ostomy as described above. The remainder the abdominal wall is intact. L4-L5 and L5-S1 moderately advanced degenerative disc disease. Sacral metastatic lesion is minimally changed. IMPRESSION: 1. Colectomy and right lower quadrant ileostomy. 2. Small bowel obstruction likely due to a right lower quadrant parastomal hernia. The short segment of herniated bowel and fat is mildly edematous and a strangulated hernia cannot be excluded. Surgical consultation is recommended. There is no evidence of perforation at this time. 3. Unchanged small right pleural effusion. 4. Unchanged sacral metastatic disease. 5. Additional chronic/incidental findings as detailed above. Results were discussed with EFRAÍN FINLEY at 10/29/2018 7:15 PM. Report Dictated By: Curt Frank MD at 10/29/2018 6:58 PM Report E-Signed By: Curt Frank MD at 10/29/2018 7:17 PM WSN:[id number] ED Course/Re-evaluation Clinical Indication for ER IV: Hydration, Hypotention, IV Access ED Course Patient admitted to room. History and physical obtained. IV started. IV morphine administered. 500 mL NS bolus 2. CBC, CMP. Abdominal CT showing small bowel obstruction with a possible straining related hernia. CBC negative. White count, chemistry showing BUN 49, creatinine 3.0, this is similar to the patient's previous laboratory studies, glucose 163, lactate normal, catheter urine showing positive nitrites, [id number] white blood cells, small blood. Urine sent for culture. I did review the results with the patient and his nephew, I also reviewed the case with Dr. Day, he is accepted the patient into his services, patient will be admitted to the medical floor, NG tube placed prior to admission. 10/29/2018 7:25:12 pm I did speak with Dr. Day, the general surgeon tactical air control party, reviewed the case, he is accepted the patient into his services, patient will be admitted for a small bowel obstruction and possible strangulated hernia. Physical assessment completed by JOJO Valdes student, I examined the patient myself, agree with her assessment, findings, and diagnosis. Decision to Disposition Date: Oct 29, 2018 Decision to Disposition Time: 19:25 Depart Departure Latest Vital Signs Vital Signs Date Time Temp Pulse Resp B/P (MAP) Pulse Ox O2 Delivery O2 Flow Rate FiO2 10/29/18 20:17 97 98 10/29/18 20:00 120/76 (91) 10/29/18 17:25 97.8 20 Room Air Impression: Primary Impression: Small bowel obstruction Condition: Improved Disposition: Admitted from ER Referrals: RICKI JIMENEZ MD (PCP) EFRAÍN FINLEY-WILLIAM Oct 29, 2018 17:34
[2018-10-29] MEDS ORDERED: NS(*) 0.9% 500 ML BAG 500 ML IV ONE ×2 (17:45→18:30)
[2018-10-29] MEDS ORDERED: MORPHINE 2 MG/ML SYR IVP ONE (17:55)
[2018-10-29] MEDS ORDERED: IOPAMIDOL 76% 150 ML INFUS BTL 0 ML ONE (18:09)
[2018-10-29 18:13] LABS: PLATELET COUNT, AUTOMATED 199 K/uL (150-450)
[2018-10-29] MEDS ORDERED: fentaNYL CITR 100 MCG/2 ML AMP IVP ONE (18:55)
[2018-10-29] MEDS ORDERED: ONDANSETRON 4 MG/2 ML VIAL IVP ONE (19:00)
--- NOTE | 2018-10-29 19:21 | RADIOLOGY IMAGING REPORT ---
FACILITY: [facility] PATIENT NAME: Trever Shen : 1935 MR: [id number] V: [id number] EXAM DATE: ORDERING PHYSICIAN: EFRAÍN FINLEY TECHNOLOGIST: Location: [facility] - [place] Patient: Trever Shen : 1935 Visit/Account:[id number] Date of Sevice: 10/29/2018 EXAMINATION: CT ABDOMEN AND PELVIS WITHOUT CONTRAST COMPARISON: 12/02/2017 CT. HISTORY: abd pain, eval for obstruction. History metastatic prostate cancer. PROCEDURE: Multiplanar noncontrast CT of the abdomen and pelvis. One of the following dose optimizati on techniques was utilized in the performance of this exam: Automated exposure control; adjustment of the mA and/or kV according to the patient's size; or use of an iterative reconstruction technique. Specific details can be referenced in the facility's radiology CT exam operational policy. FINDINGS: Evaluation of the solid and viscus parenchymal organs and vascular structures is limited wi thout the benefit of IV contrast. Visualized thorax: Right-sided pleural effusion is unchanged. Right lung base atelectasis versus scar ring. No definite acute findings. Liver: Mild lobular appearance to the liver as before. A few subcentimeter low-density foci in the in ferior right hepatic lobe are incompletely characterized but unchanged. Gallbladder and biliary system: Cholecystectomy. No bile duct dilation. Spleen: Negative. Pancreas: Chronic calcifications in the uncinate. No noncontrast CT findings of acute inflammation. Adrenal glands: Negative. Kidneys and bladder: Left kidney upper pole 9 mm probable cyst is unchanged. Right kidney lower pole 5 mm probable hyperdense cyst is unchanged. No definite mass. No hydronephrosis. No radiopaque ureter al stone. 4 mm bladder stone; the majority of the bladder stones demonstrated on the prior CT are no longer present. Vessels: Aortoiliac advanced atherosclerosis. No abdominal aortic aneurysm. Bowel and mesentery: Colectomy with right lower quadrant ileostomy. Small bowel obstruction with smal l bowel loops are dilated to 4.6 cm. The site of obstruction is favored to be secondary to a small pa rastomal hernia. There is mild edema of the herniated bowel. No pneumatosis or extra luminal gas or f luid collection is otherwise identified. Pelvic organs: Mildly heterogeneous prostate appears essentially unchanged. Lymph nodes: No enlarging abdominopelvic lymph nodes. The previously described retrocrural lymph node is more suggestive of a prominent cisterna chyli. Free air/free fluid: None. Abdominal wall and osseous structures: Right lower quadrant ostomy as described above. The remainder the abdominal wall is intact. L4-L5 and L5-S1 moderately advanced degenerative disc disease. Sacral m etastatic lesion is minimally changed. IMPRESSION: 1. Colectomy and right lower quadrant ileostomy. 2. Small bowel obstruction likely due to a right lower quadrant parastomal hernia. The short segment of herniated bowel and fat is mildly edematous and a strangulated hernia cannot be excluded. Surgical consultation is recommended. There is no evidence of perforation at this time. 3. Unchanged small right pleural effusion. 4. Unchanged sacral metastatic disease. 5. Additional chronic/incidental findings as detailed above. Results were discussed with EFRAÍN FINLEY at 10/29/2018 7:15 PM. Report Dictated By: Curt Frank MD at 10/29/2018 6:58 PM Report E-Signed By: Curt Frank MD at 10/29/2018 7:17 PM WSN:[id number]
[2018-10-29 20:52] VITALS: BP 108/72
--- NOTE | 2018-10-29 20:56 | RADIOLOGY IMAGING REPORT ---
FACILITY: [facility] - [place], [place] PATIENT NAME: Trever Shen : 1935 MR: [id number] V: [id number] EXAM DATE: ORDERING PHYSICIAN: EFRAÍN FINLEY TECHNOLOGIST: Location: [facility] Patient: Trever Shen : 1935 Visit/Account:[id number] Date of Sevice: 10/29/2018 EXAMINATION: Portable AP Chest HISTORY: NG placement COMPARISON: CT abdomen/pelvis performed earlier today. Chest radiograph 12/02/2017. FINDINGS: NG tube present, extending below the diaphragm and looped in the gastric fundus. Small right pleural effusion, better visualized on the earlier CT, with mild right basilar atelectasi s. The lungs are otherwise clear. No suspicious focal consolidation. No pneumothorax. Normal cardiomediastinal silhouette. No acute osseous findings in the chest. IMPRESSION: NG tube tip in the stomach. Report Dictated By: Abdifatah Hines MD at 10/29/2018 8:45 PM Report E-Signed By: Abdifatah Hines MD at 10/29/2018 8:52 PM WSN:[id number]
[2018-10-29] MEDS ORDERED: NALOXONE HCL 0.4 MG/ML VIAL IVP PRN (21:35)
[2018-10-29] MEDS ORDERED: FLUSH 10 ML SYR IVP PRN (21:35)
[2018-10-29] MEDS ORDERED: fentaNYL CITR 100 MCG/2 ML AMP IVP PRN (21:35)
[2018-10-29] MEDS ORDERED: PHYTONADIONE 10 MG/ML AMP SC ONE (21:55)
[2018-10-29] MEDS: LR(*) 1000 ML BAG 1,000 ML IV PRN (21:57)
[2018-10-29] MEDS: ACETAMINOPHEN(*)1000 MG/100 ML 100 ML IVPB PRN (21:58)
[2018-10-29] MEDS: HYDROmorphone HCL 2 MG/ML SDV IVP PRN (21:58)
[2018-10-29] MEDS ORDERED: cefTRIAXone 2 GM VIAL IVP SCH (22:00)
--- NOTE | 2018-10-29 22:05 | Gen Surgery History & Physical ---
History of Present Illness Chief Complaint Abdominal pain History of Present Illness 83-year-old chronically ill male presents with a one-day history of abdominal pain. In reviewing his PCM, Dr. Jimenez's, notes he has not been feeling well for over the last week and was suspected to have gastroenteritis due to increased abdominal pain with nausea and vomiting and increased stoma output. He does have a chronic ileostomy after total colectomy for ulcerative colitis since 2005 and does have a previous history of a parastomal hernia which was repaired by Dr. Bueno in 2013, 4-1/2 years ago. Patient notes that this morning he started having increasing abdominal pain and hasn't noticed any gas or stool in the stoma bag since yesterday. He is also had nausea and vomiting today. He came into the emergency room where a CT scan was performed which reveals a parastomal hernia with a small bowel obstruction that is thought to be related to the hernia and there are some inflammatory changes around the herniated small bowel suspicious for incarceration. The patient is on chronic warfarin for atrial fibrillation. 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 (11) Anticoagulant long-term use Status: Chronic (12) Self-catheterizes urinary bladder Status: Chronic (13) S/P colectomy Status: Resolved (14) H/O ileostomy (15) Alcoholism in recovery Home Meds Active Scripts Sodium Bicarbonate (SODIUM BICARBONATE) 650 Mg Tablet, 1 TAB PO BID for 90 Days, #180 TAB 2 Refills Prov:RICKI JIMENEZ MD 10/27/18 Nystatin/Triamcin (NYSTATIN-TRIAMCINOLONE OINTM) 15 Gm Oint...g., 1 GM TP DAILY PRN for prn for 90 Days, #1 TUBE Prov:RICKI JIMENEZ MD 10/23/18 Warfarin Sodium (COUMADIN) 5 Mg Tablet, 1-1.5 TAB PO DIRECTED, #90 TAB 1 Refill Take as directed by provider after INR checks Prov:RICKI JIMENEZ MD 07/16/18 Fluticasone Prop 50 Mcg Ns (FLONASE 50 MCG NS) 16 Gm [place].susp, 2 SPRAYS NS QDAY, #1 BOT Prov:RICKI JIMENEZ MD 07/10/18 Diltiazem Hcl (CARTIA XT) 180 Mg Cap.er.24h, 1 CAP PO DAILY for 90 Days, #90 CAP 4 Refills Prov:RICKI JIMENEZ MD 07/10/18 Metoprolol Tartrate (METOPROLOL TARTRATE) 25 Mg Tablet, 1 TAB PO BID for 90 Days, #180 TAB 4 Refills Prov:RICKI JIMENEZ MD 07/10/18 Reported Medications Multivitamin (CHEWABLE-CHAVA) 1 Each Tab.chew, 2 EACH PO DAILY, TAB.CHEW 01/22/18 Allergies: Coded Allergies: Sulfa (Sulfonamide Antibiotics) (Verified Adverse Reaction, Mild, RASH, 01/22/18) Patient History: FH: arthritis FATHER, FH: diabetes mellitus MOTHER, Ana Gehrig's disease BROTHER OR SISTER Review of Systems All Systems Reviewed/Normal: Yes, Except as Noted Gastrointestinal: Nausea, Vomiting, Abdominal Pain Exam General Appearance: Alert, Awake, No Acute Distress, Afebrile Neuro: No Gross deficits Eyes: PERRLA GI: Other (soft, he is diffusely tenderness to palpation but greatest around the ileostomy. There is no obvious bulge but when I digitalize his ileostomy I can feel the herniated small bowel adjacent to the ileostomy. I attempted to reduce it but I am unable to ascertain whether I actually reduced because the hernia is really not that big and easily palpable. There is no stool or gas in his stoma bag.) Extremities: Warm, Perfused Psych: Alert & Oriented X3, Appropriate Mood & Affect Medical Decision Making Data Points Result Diagram: 10/29/18180010/29/181800 Assessment and Plan Problems: (1) Small bowel obstruction Status: Acute Assessment & Plan: 10/29/18: Admit to surgical service, IV fluids, bowel rest, NG tube decompression, reverse anticoagulation as abdominal exam is relatively benign with high likelihood of needing surgical repair of his parastomal hernia tomorrow unless the obstruction resolves overnight. We'll ask the hospitalist service to consult given this patient's many comorbidities to help manage his a- fib, CHF, renal insufficiency, etc. Will spend tonight reversing his anticoagulation and optimizing him for surgical intervention with plans for surgery tomorrow if things do not improve overnight. I have explained this plan to the patient in detail and he seems to understand and seems to agree with this plan. 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 Condition Guarded Time Spent: < 30 min Venous Thromboembolism VTE Risk Physician Assess for VTE Risk: Yes Patient's VTE Risk: Low VTE Diagnostic Test 2 Days Prior to Admit: No Antithrombotics Is Pt On Any Antithrombotics?: No Problem Qualifiers (1) Parastomal hernia: Obstruction and gangrene presence: with obstruction but without gangrene Qualified Codes: K43.3 - Parastomal hernia with obstruction, without gangrene (2) Chronic heart failure: Heart failure type: unspecified Qualified Codes: I50.9 - Heart failure, unspecified (3) Afib: Atrial fibrillation type: chronic Qualified Codes: I48.2 - Chronic atrial fibrillation (4) Chronic renal failure: Chronic kidney disease stage: unspecified stage Qualified Codes: N18.9 - Chronic kidney disease, unspecified SUNI BENJAMIN MD Oct 29, 2018 22:05
--- NOTE | 2018-10-29 22:14 | Hospitalist Consultation ---
History of Present Illness Requesting Physician Dr. Sims Reason for Consult Medical co-management/history of a-fib and chronic renal failure Chief Complaint Abdominal pain History of Present Illness 83yo male with PMHx significant for UC s/p total colectomy, a-fib, CRF, type 2DM, prostate cancer s/p radiation therapy, recurrent UTIs, urinary retention self-cath. He is currently admitted to surgical service with SBO due to parastomal hernia. He reports several days of increasing abdominal pain with N/V. He denies any fevers or chills. He states his urinary caths have been unremarkable. He denies any chest pains, palpitations, awareness of rapid heart rate, dyspnea. He is on metoprolol and diltiazem for rate control as well as warfarin for CVA prophylaxis. His UA done in ER shows pyuria. He has not had any reported problems with anesthesia. History Problems: (1) Prostate cancer Status: Chronic (2) CKD (chronic kidney disease) Status: Chronic (3) HTN (hypertension) Status: Chronic (4) Ulcerative colitis Status: Chronic (5) Chronic atrial fibrillation Status: Chronic (6) S/P colectomy Status: Resolved (7) H/O ileostomy Status: Chronic (8) Diabetes mellitus type 2, diet-controlled Status: Chronic Home Meds Active Scripts Sodium Bicarbonate (SODIUM BICARBONATE) 650 Mg Tablet, 1 TAB PO BID for 90 Days, #180 TAB 2 Refills Prov:RICKI JIMENEZ MD 10/27/18 Nystatin/Triamcin (NYSTATIN-TRIAMCINOLONE OINTM) 15 Gm Oint...g., 1 GM TP DAILY PRN for prn for 90 Days, #1 TUBE Prov:RICKI JIMENEZ MD 10/23/18 Warfarin Sodium (COUMADIN) 5 Mg Tablet, 1-1.5 TAB PO DIRECTED, #90 TAB 1 Refill Take as directed by provider after INR checks Prov:RICKI JIMENEZ MD 07/16/18 Fluticasone Prop 50 Mcg Ns (FLONASE 50 MCG NS) 16 Gm [place].susp, 2 SPRAYS NS QDAY, #1 BOT Prov:RICKI JIMENEZ MD 07/10/18 Diltiazem Hcl (CARTIA XT) 180 Mg Cap.er.24h, 1 CAP PO DAILY for 90 Days, #90 CAP 4 Refills Prov:RICKI JIMENEZ MD 07/10/18 Metoprolol Tartrate (METOPROLOL TARTRATE) 25 Mg Tablet, 1 TAB PO BID for 90 Days, #180 TAB 4 Refills Prov:RICKI JIMENEZ MD 07/10/18 Reported Medications Multivitamin (CHEWABLE-CHAVA) 1 Each Tab.chew, 2 EACH PO DAILY, TAB.CHEW 01/22/18 Allergies: Coded Allergies: Sulfa (Sulfonamide Antibiotics) (Verified Adverse Reaction, Mild, RASH, 01/22/18) Patient History: FH: arthritis FATHER, FH: diabetes mellitus MOTHER, Ana Gehrig's disease BROTHER OR SISTER Hx Smoking: Yes Smoking Status: Former Smoker Caffeine Intake: Coffee Caffeine/Cups Per Day: 1-1.5 Hx Alcohol Use: No Hx Substance Use Disorder: No Social Drug Use: Never Review of Systems Constitutional: No Fever, No Chills Cardiovascular: No Chest Pain Respiratory: No Shortness of Breath Gastrointestinal: Nausea, Vomiting, Abdominal Pain Genitourinary: Other (self-caths) Exam Vital Signs Vital Signs Date Time Temp Pulse Resp B/P (MAP) Pulse Ox O2 Delivery O2 Flow Rate FiO2 10/29/18 20:52 97.7 102 16 108/72 (84) 98 Nasal Cannula 2.0 General Appearance: Alert, Awake Eyes: Other (sclera anicteric) Cardiovascular: No Edema, Other (Irregular slightly tachycardic) Respiratory: Other (decreased breath sounds bilaterally, but equal no current rales/wheezes) GI: Other (healed surgical scars/ileostomy) Extremities: Warm, Perfused Psych: Alert & Oriented X3 Medical Decision Making Data Points Result Diagram: 10/29/18 1801 10/29/18 1801 Item Value Date Time Urine Mucus Few /HPF 10/29/18 1846 Urine Bacteria Many /HPF H 10/29/18 184 Urine Squamous Epithelial Cells Few /LPF 10/29/18 184 Urine WBC Clumps Mod /HPF 10/29/18 184 Urine WBC 588 /HPF 10/29/18 184 Urine RBC 10 /HPF 10/29/18 184 Urine Leukocyte Esterase Moderate H 10/29/18 184 Urine Urobilinogen Negative mg/dL 10/29/18 184 Urine Bilirubin Negative 10/29/18 1845 Urine Nitrite Positive H 10/29/181845 Urine Blood Small 10/29/181845 Urine Ketones Trace mg/dL 10/29/181845 Urine Glucose (UA) Negative mg/dL 10/29/181845 Urine Protein 30 mg/dL 10/29/181845 Urine Specific [place] 1.018 10/29/181845 Urine pH 5.0 pH 10/29/181845 Urine Clarity Cloudy 10/29/181845 Urine Color Yellow 10/29/181845 INR (Fingerstick) 3.9 10/27/18 0843 EKG / Imaging Imaging PATIENT NAME: Trever Shen : 1935 MR: [id number] V: [id number] EXAM DATE: [id number] ORDERING PHYSICIAN: EFRAÍN FINLEY TECHNOLOGIST: Location: [facility] - [place] Patient: Trever Shen : 1935 Visit/Account:[id number] Date of Sevice: 10/29/2018 EXAMINATION: Portable AP Chest HISTORY: NG placement COMPARISON: CT abdomen/pelvis performed earlier today. Chest radiograph 12/02/2017. FINDINGS: NG tube present, extending below the diaphragm and looped in the gastric fundus. Small right pleural effusion, better visualized on the earlier CT, with mild right basilar atelectasis. The lungs are otherwise clear. No suspicious focal consolidation. No pneumothorax. Normal cardiomediastinal silhouette. No acute osseous findings in the chest. IMPRESSION: NG tube tip in the stomach. Report Dictated By: Abdifatah Hines MD at 10/29/2018 8:45 PM Report E-Signed By: Abdifatah Hines MD at 10/29/2018 8:52 PM WSN:[id number] PATIENT NAME: Trever Shen : 1935 MR: [id number] V: [id number] EXAM DATE: [id number] ORDERING PHYSICIAN: EFRAÍN FINLEY TECHNOLOGIST: Location: [facility] - [place] Patient: Trever Shen : 1935 Visit/Account:[id number] Date of Sevice: 10/29/2018 EXAMINATION: CT ABDOMEN AND PELVIS WITHOUT CONTRAST COMPARISON: 12/02/2017 CT. HISTORY: abd pain, eval for obstruction. History metastatic prostate cancer. PROCEDURE: Multiplanar noncontrast CT of the abdomen and pelvis. One of the following dose optimization techniques was utilized in the performance of this exam: Automated exposure control; adjustment of the mA and/or kV according to the patient's size; or use of an iterative reconstruction technique. Specific details can be referenced in the facility's radiology CT exam operational policy. FINDINGS: Evaluation of the solid and viscus parenchymal organs and vascular structures is limited without the benefit of IV contrast. Visualized thorax: Right-sided pleural effusion is unchanged. Right lung base atelectasis versus scarring. No definite acute findings. Liver: Mild lobular appearance to the liver as before. A few subcentimeter low- density foci in the inferior right hepatic lobe are incompletely characterized but unchanged. Gallbladder and biliary system: Cholecystectomy. No bile duct dilation. Spleen: Negative. Pancreas: Chronic calcifications in the uncinate. No noncontrast CT findings of acute inflammation. Adrenal glands: Negative. Kidneys and bladder: Left kidney upper pole 9 mm probable cyst is unchanged. R ight kidney lower pole 5 mm probable hyperdense cyst is unchanged. No definite mass. No hydronephrosis. No radiopaque ureteral stone. 4 mm bladder stone; the majority of the bladder stones demonstrated on the prior CT are no longer present. Vessels: Aortoiliac advanced atherosclerosis. No abdominal aortic aneurysm. Bowel and mesentery: Colectomy with right lower quadrant ileostomy. Small bowel obstruction with small bowel loops are dilated to 4.6 cm. The site of obstruction is favored to be secondary to a small parastomal hernia. There is mild edema of the herniated bowel. No pneumatosis or extra luminal gas or fluid collection is otherwise identified. Pelvic organs: Mildly heterogeneous prostate appears essentially unchanged. Lymph nodes: No enlarging abdominopelvic lymph nodes. The previously described retrocrural lymph node is more suggestive of a prominent cisterna chyli. Free air/free fluid: None. Abdominal wall and osseous structures: Right lower quadrant ostomy as described above. The remainder the abdominal wall is intact. L4-L5 and L5-S1 moderately advanced degenerative disc disease. Sacral metastatic lesion is minimally changed. IMPRESSION: 1. Colectomy and right lower quadrant ileostomy. 2. Small bowel obstruction likely due to a right lower quadrant parastomal hernia. The short segment of herniated bowel and fat is mildly edematous and a strangulated hernia cannot be excluded. Surgical consultation is recommended. There is no evidence of perforation at this time. 3. Unchanged small right pleural effusion. 4. Unchanged sacral metastatic disease. 5. Additional chronic/incidental findings as detailed above. Results were discussed with EFRAÍN FINLEY at 10/29/2018 7:15 PM. Report Dictated By: Curt Frank MD at 10/29/2018 6:58 PM Report E-Signed By: Curt Frank MD at 10/29/2018 7:17 PM WSN:[id number] Assessment and Plan Problems: (1) Afib Status: Chronic Assessment & Plan: While he is NPO will place him on IV metoprolol 5mg q6hrs for rate control. We will need to reverse his anticoagulation acutely as he may need surgery in near future. Will monitor closely. (2) Urinary tract infection Status: Acute Assessment & Plan: Most likely related to self-caths. Will place on IV vancomycin and Rocephin based on previous culture results. Urine culture has been obtained in ER. Modify regimen based on culture results. (3) Acute on chronic renal failure Status: Acute Assessment & Plan: His creatinine is slightly higher than his baseline, which appears to be in 2.5-2.7 range. This is probably based on dehydration related to current SBO with N/V and poor intake. He will be on IV fluids. Watch status closely. (4) Prostate cancer metastatic to multiple sites Status: Chronic Assessment & Plan: He has had previous radiation therapy. (5) Diabetes mellitus type 2, diet-controlled Status: Chronic Assessment & Plan: Watch glucoses and use SSI if needed. ADA diet when he resumes taking PO. Venous Thromboembolism Antithrombotics Is Pt On Any Antithrombotics?: No Prophylaxis Tx Contraindicated Pharmacological Contraindicati: Surgical Contraindication (Possible surgery in near future) Exam Sepsis Risk: No Definite Risk Problem Qualifiers (1) Afib: Atrial fibrillation type: chronic Qualified Codes: I48.2 - Chronic atrial fibrillation CASPER SCOTT MD Oct 29, 2018 22:14
--- NOTE | 2018-10-29 22:32 | EKG ---
FACILITY: [facility] - [place] PATIENT NAME: GISELLE JEAN : [id number] MR: [id number] V: [id number] EXAM DATE: ORDERING PHYSICIAN: SUNI BENJAMIN TECHNOLOGIST: SURI Test Reason : HX A FIB Blood Pressure : / mmHG Vent. Rate : 102 BPM Atrial Rate : 122 BPM P-R Int : 000 ms QRS Dur : 086 ms QT Int : 358 ms P-R-T Axes : 000 077 206 degrees QTc Int : 466 ms Atrial fibrillation with rapid ventricular response Nonspecific ST-T findings Abnormal ECG When compared with ECG of 20-MAR-2018 17:39, No significant change was found Confirmed by CASPER SCOTT ([id number]) on 10/30/2018 4:54:54 AM Referred By: Confirmed By:CASPER SCOTT
[2018-10-29] MEDS ORDERED: WATER STERILE(*) 10 ML VIAL 10 ML ONE (22:37)
[2018-10-29] MEDS ORDERED: WATER STERILE(*) 10 ML VIAL 20 ML ONE (22:38)
[2018-10-29] MEDS ORDERED: NS(*) 0.9% 250 ML BAG 250 ML ONE (22:47)
[2018-10-29] MEDS ORDERED: VANCOMYCIN(*) 1 GM VIAL 1 GM, VANCOMYCIN (*) 0.5 GM VIAL 0.5 GM in NS(*) 0.9% 250 ML BA... IVPB ONE (23:00)
[2018-10-30] VITALS (14 sets, daily range): BP systolic 106–127; BP diastolic 48–89; Ht 182.9 cm; Wt 75.7 kg
[2018-10-30] MEDS: INSULIN HUM LISPRO 100 UN/ML 3 ML VIAL SUBQ PRN (00:43)
[2018-10-30] MEDS: ONDANSETRON 4 MG/2 ML VIAL IVP PRN (00:49)
[2018-10-30] MEDS: METOPROLOL TART 5 MG/5 ML VIAL IVP SCH ×4 (00:53→11:53)
[2018-10-30] MEDS: HYDROmorphone HCL 2 MG/ML SDV IVP PRN ×3 (03:37→16:15)
[2018-10-30] MEDS ORDERED: METOPROLOL TART 5 MG/5 ML VIAL IVP ONE (04:15)
[2018-10-30] MEDS ORDERED: DIGOXIN 0.5 MG/2 ML AMP IVP ONE ×2 (04:45→08:30)
[2018-10-30 06:21] LABS: PLATELET COUNT, AUTOMATED 156 K/uL (150-450)
--- NOTE | 2018-10-30 06:55 | General Surgery Progress Note ---
Subjective Progress Notes Subjective Feeling better this morning. Abdominal pain is not gone but is improved. No gas or stool in stoma bag overnight. Physical Exam Vital Signs Date Time Temp Pulse Resp B/P (MAP) Pulse Ox O2 Delivery O2 Flow Rate FiO2 10/30/18 05:53 98.6 105 18 120/78 (92) 97 Nasal Cannula 1.0 Intake and Output 10/30/18 07:00 Intake Total 1585 ml Output Total 1450 ml Balance 135 ml Intake IV Total 1000 ml Blood Product 585 ml Output Urine Total 350 ml Gastric Drainage Total 1100 ml General Appearance: Alert, Awake, No Acute Distress, Afebrile GI: Soft and Non-Tender (Stoma is pink and functional. Attempted manual reduction of parastomal hernia again this morning. Not confident that I made any progress.) Extremities: Warm, Perfused Result Diagram: 10/30/18 0530 10/30/18 0530 Assessment and Plan Problems: (1) Small bowel obstruction Status: Acute Assessment & Plan: 10/29/18: Admit to surgical service, IV fluids, bowel rest, NG tube decompression, reverse anticoagulation as abdominal exam is relatively benign with high likelihood of needing surgical repair of his parastomal hernia tomorrow unless the obstruction resolves overnight. We'll ask the hospitalist service to consult given this patient's many comorbidities to help manage his a- fib, CHF, renal insufficiency, etc. Will spend tonight reversing his anticoagulation and optimizing him for surgical intervention with plans for surgery tomorrow if things do not improve overnight. I have explained this plan to the patient in detail and he seems to understand and seems to agree with this plan. 10/30/18: Doing better. Labs pending still this morning. Hospitalist is working on rate control today, they would like improved control prior to surgery. I will add him on to the OR schedule to follow my elective surgeries this evening for open parastomal hernia repair and if rate not controlled or other contraindications to surgery arise during the day then will cancel surgery and see how he is medically tomorrow. His abdominal exam is benign this morning but still with SBO without any stoma activity since admission yesterday. Continue bowel rest, NG tube decompression, IV fluids today. Hold on lovenox as he's still under influence of warfarin and will want his coagulopathy reversed before surgery. PPI for GI prophylaxis. Abx for UTI. 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 (10) Urinary tract infection Status: Acute Assessment & Plan: ABX Condition Stable. Time Spent: < 30 min Exam Sepsis Risk: No Definite Risk Problem Qualifiers (1) Parastomal hernia: Obstruction and gangrene presence: with obstruction but without gangrene Qualified Codes: K43.3 - Parastomal hernia with obstruction, without gangrene (2) Chronic heart failure: Heart failure type: unspecified Qualified Codes: I50.9 - Heart failure, unspecified (3) Afib: Atrial fibrillation type: chronic Qualified Codes: I48.2 - Chronic atrial fibrillation (4) Chronic renal failure: Chronic kidney disease stage: unspecified stage Qualified Codes: N18.9 - Chronic kidney disease, unspecified (5) Urinary tract infection: Urinary tract infection type: acute cystitis Hematuria presence: without hematuria Qualified Codes: N30.00 - Acute cystitis without hematuria SUNI BENJAMIN MD Oct 30, 2018 06:55
[2018-10-30 06:59] LABS: INR 1.54
[2018-10-30] MEDS ORDERED: NORMOSOL R SOLN(*) 1000 ML BAG 1,000 ML IV ONE (07:30)
[2018-10-30] MEDS: LR(*) 1000 ML BAG 1,000 ML IV PRN ×2 (08:00→16:15)
[2018-10-30] MEDS: PANTOPRAZOLE SOD 40 MG IV VIAL IVP SCH (08:01)
[2018-10-30] MEDS: ACETAMINOPHEN(*)1000 MG/100 ML 100 ML IVPB PRN ×2 (08:01→16:42)
--- NOTE | 2018-10-30 11:16 | Hospitalist Progress Note ---
Subjective Progress Notes Subjective This patient was admitted for small bowel obstruction. He had no acute events overnight. Patient Complains of: Cardiovascular: No: Chest Pain Respiratory: No: Shortness of Breath Physical Exam Vital Signs Date Time Temp Pulse Resp B/P (MAP) Pulse Ox O2 Delivery O2 Flow Rate FiO2 10/30/18 08:16 110 120/83 (95) 10/30/18 07:45 90 Nasal Cannula 1.0 10/30/18 07:40 99.5 16 Intake and Output 10/30/18 07:00 Intake Total 1585 ml Output Total 1450 ml Balance 135 ml Intake IV Total 1000 ml Blood Product 585 ml Output Urine Total 350 ml Gastric Drainage Total 1100 ml Cardiovascular: Regular Rate and Rhythm Respiratory: Clear to Auscultation Result Diagram: 10/30/1852910/30/18 05 Assessment and Plan Problems: (1) Afib Status: Chronic Assessment & Plan: He is on chronic treatment with diltiazem and warfarin. He is currently NPO and is receiving metoprolol for rate control. His warfarin is held in anticipation of surgery. (2) Urinary tract infection Status: Acute Assessment & Plan: He does self catheter at home. His urine was positive for nitrite and leukocytes, but he is afebrile and his WBC is normal. He was started on ceftriaxone empirically and also received a dose of vancomycin. He did develop a rash after receiving the vancomycin. A culture is pending. (3) Acute on chronic renal failure Status: Acute Assessment & Plan: His creatinine improved with IV fluids and appears to be at his baseline when compared to prior results. (4) Prostate cancer metastatic to multiple sites Status: Chronic Assessment & Plan: He has had previous radiation therapy. (5) Diabetes mellitus type 2, diet-controlled Status: Chronic Assessment & Plan: He is on sliding scale level #1. Exam Sepsis Risk: No Definite Risk Problem Qualifiers (1) Afib: Atrial fibrillation type: chronic Qualified Codes: I48.2 - Chronic atrial fibrillation (2) Urinary tract infection: Urinary tract infection type: acute cystitis Hematuria presence: without hematuria Qualified Codes: N30.00 - Acute cystitis without hematuria SUNI WATERMAN DO Oct 30, 2018 11:16
--- NOTE | 2018-10-30 15:12 | Medical Nutrition Therapy ---
Nutrition Anthropometrics Height (Inches): 72.00 Height (Calculated Centimeters: 182.686366 Weight (Pounds): 161 Weight (Calculated Kilograms): 73.255 BMI: 21.88 Jerson Nutrition Score: Adequate Jerson Nutrition Risk Score: 18 Dietary Referral Nutrition Risk Factors: Unplanned Loss >10lbs Nutrition Risk Comment: 30 lb weight loss in 1 month Physical Findings Physical Appearance: Skin Appearance Skin Appearance: Edema Edema Location Modifier: Both Edema Location: Foot Type of Edema: Non-pitting Degree of Edema: Gastrointestinal Symptoms GI Symtoms: Nausea/Vomiting Tube Present: NG Bowel Sounds: None Recent Bowel Pattern: None Stool Characteristics: Nutrition/Food History N/V, Constipation 10/30 Pt is NPO day 2 Nutritional Diagnosis Nutritional Risk Acuity 1: GI Obstruction Nutritional Risk Acuity 2: Chronic Renal Failure Nutritional Risk Acuity 3: OR & > 80 yrs, Nausea Nutritional Risk Acuity 4: %IBW 90-100% Past Medical History: Hx of ileostomy, chronic renal insufficiency, COPD, afib, prostate cancer, 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 Food/Eulalia Intake Nutrition Problem/Etiology/Sym: 10/30 Increased nutrient needs related to inadequate food/beverage intake as evidence by NPO diet day 2 Energy Requirement: 1828 Protein Requirement: 73 Fluid Requirement: 1828 Diet Type: NPO (Nothing by Mouth) Nutrition Intervention: Incr diet as tolerated Nutritional Needs Comment: 10/30 pt is NPO for surgery, will monitor intake when pt is no longer NPO Nutrition Monitoring & Eval RD Patient Assessment Time: [address] Assessment Type: RD Assessment Patient Nutrition Acuity: 1-High Follow Up Date: Nov 01, 2018 Nutritional Comment: 10/30 Pt admitted with GI problems. 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 Pt dx with small bowel obstruction, Parastoma Hernia, T2DM, CHF, a-fib, Chronic Renal Failure, and UTI. Pt is currently NPO with a nasogastric tube to help remove the blockage before hernia surgery. Pt was taken off Warfarin to thicken blood before surgery, but will continue after surgery. Pt has elevated Creatinine (2.5), BUN (50), K+ (5.2), and RG (155), Hgb (12.4), Hct (36.6), Na (136), and CO2 (19) are all low. Pt will be monitored on the ADA diet after surgery for adequate intake. NITO ROGER Oct 30, 2018 13:18
[2018-10-30 15:21] LABS: INR 1.58
--- NOTE | 2018-10-30 21:03 | Miscellaneous Provider Note ---
Miscellaneous Provider Note Note I have extensively reviewed the CT abd/pelvis today and compared it with his CT abd/pelvis from 2018 and the parastomal hernia really appears similar. I discussed the CT's with our radiologist and reviewed them personally with her and there are some decompressed segments of small bowel and there's possibly a transition point in the mid abdomen. This isn't c/w the parastomal hernia causing the obstruction, although it's still possible it might be. Will cancel surgery for today and will continue bowel rest and NG tube decompression and will plan on getting a gastrograffin SBFT tomorrow. Another reason to hold on surgery is that he has a UTI and if parastomal re-repair is attempted with mesh there is an increased risk of mesh infection. I discussed this with the patient and he seems to understand this logic and seems agreeable with this amended plan. SUNI BENJAMIN MD Oct 30, 2018 21:03
[2018-10-30] MEDS: cefTRIAXone 2 GM VIAL IVP SCH (22:05)
[2018-10-31] VITALS (7 sets, daily range): BP systolic 111–140; BP diastolic 61–88
[2018-10-31] MEDS: METOPROLOL TART 5 MG/5 ML VIAL IVP SCH ×5 (00:23→23:31)
[2018-10-31] MEDS: HYDROmorphone HCL 2 MG/ML SDV IVP PRN (00:58)
[2018-10-31] MEDS: LR(*) 1000 ML BAG 1,000 ML IV PRN ×3 (01:05→19:01)
[2018-10-31 05:45] LABS: PLATELET COUNT, AUTOMATED 138 K/uL (150-450)
[2018-10-31 05:55] LABS: INR 1.29
--- NOTE | 2018-10-31 07:20 | NUR ---
Completed by previous shift's nurse. Addendum: 10/31/18 at 0721 by PING SANCHEZ RN Amended: Links added.
--- NOTE | 2018-10-31 07:28 | General Surgery Progress Note ---
Subjective Progress Notes Subjective No complaints. Has a little abdominal pain but not bad, thinks it's improving. A little stool in stoma bag, not much gas in the bag. Physical Exam Vital Signs Date Time Temp Pulse Resp B/P (MAP) Pulse Ox O2 Delivery O2 Flow Rate FiO2 10/31/18 07:01 98.7 107 18 112/65 (81) 96 Nasal Cannula 1.0 Intake and Output 10/31/18 07:00 Intake Total 2999 ml Output Total 2000 ml Balance 999 ml Intake IV Total 2999 ml Output Urine Total 600 ml Gastric Drainage Total 1400 ml General Appearance: Alert, Awake, No Acute Distress, Afebrile GI: Other (Soft, mild periumbilical TTP, no distension or peritoneal signs.) Extremities: Warm, Perfused Result Diagram: 10/31/1851810/31/18518 Assessment and Plan Problems: (1) Small bowel obstruction Status: Acute Assessment & Plan: 10/29/18: Admit to surgical service, IV fluids, bowel rest, NG tube decompression, reverse anticoagulation as abdominal exam is relatively benign with high likelihood of needing surgical repair of his parastomal hernia tomorrow unless the obstruction resolves overnight. We'll ask the hospitalist service to consult given this patient's many comorbidities to help manage his a- fib, CHF, renal insufficiency, etc. Will spend tonight reversing his anticoagulation and optimizing him for surgical intervention with plans for surgery tomorrow if things do not improve overnight. I have explained this plan to the patient in detail and he seems to understand and seems to agree with this plan. 10/30/18: Doing better. Labs pending still this morning. Hospitalist is working on rate control today, they would like improved control prior to surgery. I will add him on to the OR schedule to follow my elective surgeries this evening for open parastomal hernia repair and if rate not controlled or ot her contraindications to surgery arise during the day then will cancel surgery and see how he is medically tomorrow. His abdominal exam is benign this morning but still with SBO without any stoma activity since admission yesterday. Continue bowel rest, NG tube decompression, IV fluids today. Hold on lovenox as he's still under influence of warfarin and will want his coagulopathy reversed before surgery. PPI for GI prophylaxis. Abx for UTI. 10/31/18: Seems to be doing better but still with poor stoma output. Will get SBFT (water-soluble) today. If fails to open up, will require surgical exploration in the next day or two. Continue PPI, hold on lovenox for now. A- fib rate control seems to be better controlled. 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 (10) Urinary tract infection Status: Acute Assessment & Plan: ABX Condition STable. Time Spent: < 30 min Exam Sepsis Risk: No Definite Risk Problem Qualifiers (1) Parastomal hernia: Obstruction and gangrene presence: with obstruction but without gangrene Qualified Codes: K43.3 - Parastomal hernia with obstruction, without gangrene (2) Chronic heart failure: Heart failure type: unspecified Qualified Codes: I50.9 - Heart failure, unspecified (3) Afib: Atrial fibrillation type: chronic Qualified Codes: I48.2 - Chronic atrial fibrillation (4) Chronic renal failure: Chronic kidney disease stage: unspecified stage Qualified Codes: N18.9 - Chronic kidney disease, unspecified (5) Urinary tract infection: Urinary tract infection type: acute cystitis Hematuria presence: without hematuria Qualified Codes: N30.00 - Acute cystitis without hematuria SUNI BENJAMIN MD Oct 31, 2018 07:28
[2018-10-31] MEDS: PANTOPRAZOLE SOD 40 MG IV VIAL IVP SCH (08:25)
[2018-10-31] MEDS ORDERED: DIATRIZOATE MEGL/DIATRIZOA SOD 120 ML SOLN PO ONE ×2 (08:32)
[2018-10-31] MEDS: ONDANSETRON 4 MG/2 ML VIAL IVP PRN (08:46)
--- NOTE | 2018-10-31 10:29 | Antimicrobial Stewardship ---
Antimicrobial Stewardship Empiricly appropriate: Yes (UTI, Ceftriaxone) Significant PMH: Yes (colectomy, afib, CRF, DM2, prostate CA s/p XRT, recurrent UTIs (self cath)) Support empiric regimen: Yes (Ceftriaxone 2g IV Q24H) Approriate Cultures done: Yes (Urine Cx pending- GNR >100,000cfu) Gram stain show Microbs: Yes Renal/Hepatic dosing: Yes (CrCl ~23 ml/min ( Scr = 2.4, wt = 73kg)) Determine cumulative duration: Today is day 3 (10/31/18) Determine standard duration: UTI- Complicated 7-14 days Comment 83 yo M with PMH of colectomy, afib, CRF, DM2, prostate cancer s/p XRT, recurrent UTIs, urinary retention with self caths who presented with symptoms of SBO and reporting that his ostomy is clogged. Tmax afebrile WBC wnl Scr 3 --> 2.4 UA with nitrite (+), leukocyte esterase (+), RBC (+), WBC (+) Urine Cx- GNR >100,000cfu CrCL ~23 ml/min Ceftriaxone 2g IV Q24H started on 10/29/18 Vancomycin 1.5g IV x 1, on 10/29/18 Continue Ceftriaxone until culture and sensitivities are returned. Plan to treat for 10-14 days (complicated UTI). Will follow cultures and sensitivities Daphne Swenson, PharmD, BCOP DAPHNE SWENSON Oct 31, 2018 10:29
--- NOTE | 2018-10-31 13:03 | Hospitalist Progress Note ---
Subjective Progress Notes Subjective 83M admitted for SBO. Vomited Gastrografin up during small bowel study today. Physical Exam Vital Signs Date Time Temp Pulse Resp B/P (MAP) Pulse Ox O2 Delivery O2 Flow Rate FiO2 10/31/18 11:47 98.2 104 16 136/80 (98) 95 Nasal Cannula 2.0 Intake and Output 10/31/18 07:00 Intake Total 2999 ml Output Total 2000 ml Balance 999 ml Intake IV Total 2999 ml Output Urine Total 600 ml Gastric Drainage Total 1400 ml General Appearance: Alert, Awake, No Acute Distress Neuro: No Gross deficits Cardiovascular: Other (irregularly irregular) Respiratory: No Respiratory Distress GI: Other (tenderness and guarding diffusely. Upper abdomen + BS, lower negative BS, some output from stoma) Result Diagram: 10/31/1851810/31/18518 Assessment and Plan Problems: (1) Afib Status: Chronic Assessment & Plan: He is on chronic treatment with diltiazem and warfarin. He is currently NPO and is receiving metoprolol for rate control. His warfarin is held in anticipation of surgery. (2) Urinary tract infection Status: Acute Assessment & Plan: He does self catheter at home. His urine was positive for nitrite and leukocytes, but he is afebrile and his WBC is normal. He was started on ceftriaxone empirically and also received a dose of vancomycin. He did develop a rash after receiving the vancomycin. Growing Enterobacter cloacae sensitive to Rocephin.. (3) Acute on chronic renal failure Status: Acute Assessment & Plan: His creatinine improved with IV fluids and appears to be at his baseline when compared to prior results. (4) Prostate cancer metastatic to multiple sites Status: Chronic Assessment & Plan: He has had previous radiation therapy. (5) Diabetes mellitus type 2, diet-controlled Status: Chronic Assessment & Plan: He is on sliding scale level #1. Exam Sepsis Risk: No Definite Risk Problem Qualifiers (1) Afib: Atrial fibrillation type: chronic Qualified Codes: I48.2 - Chronic atrial fibrillation (2) Urinary tract infection: Urinary tract infection type: acute cystitis Hematuria presence: without hematuria Qualified Codes: N30.00 - Acute cystitis without hematuria SABRINA SHIELDSCAT DO Oct 31, 2018 13:03
--- NOTE | 2018-10-31 14:39 | RADIOLOGY IMAGING REPORT ---
FACILITY: [facility] PATIENT NAME: Trever Shen : 1935 MR: [id number] V: [id number] EXAM DATE: [id number] ORDERING PHYSICIAN: SUNI BENJAMIN TECHNOLOGIST: Location: [facility] Patient: Trever Shen : 1935 Visit/Account:[id number] Date of Sevice: 10/31/2018 Exam type: XR SMALL BOWEL SERIES History: SBO, water soluble contrast only please Comparison: CT abdomen pelvis 10/29/2018. Findings: Of the patient was given a dilute Gastrografin suspension through the esophagogastric tube.. On the immediate post oral contrast instillation image the duodenum did not appear grossly dilated. Gastrografin then advanced through the jejunum and ileum until it reached the ileostomy bag in the ri ght lower quadrant. The visualized jejunum and ileum appeared at least moderately dilated throughout their entire course measuring up to 4.6 cm in diameter. Transit time was three hours and 45 minutes . On the final image Gastrografin was observed to remain within the gastric fundus. Fluoroscopy was not utilized IMPRESSION: 1. Transit time of the water-soluble oral contrast to the ileostomy bag in the right lower quadrant was three hours and 45 minutes. There was however Gastrografin remaining in the gastric fundus on th e spinal image. Duodenal loops did not appear dilated although the jejunal and ileal loops did not appear at least mo derately dilated throughout their course measuring up to 4.6 cm in diameter. Report Dictated By: Alysha Garsia MD at 10/31/2018 2:28 PM Report E-Signed By: Alysha Garsia MD at 10/31/2018 2:33 PM WSN:[id number]
[2018-10-31] MEDS: cefTRIAXone 2 GM VIAL IVP SCH (21:31)
[2018-11-01 03:13] VITALS: BP 123/74
[2018-11-01] MEDS: LR(*) 1000 ML BAG 1,000 ML IV PRN ×3 (03:31→22:30)
[2018-11-01] MEDS: METOPROLOL TART 5 MG/5 ML VIAL IVP SCH ×3 (05:32→17:38)
[2018-11-01 07:24] VITALS: BP 148/84
[2018-11-01] MEDS: PANTOPRAZOLE SOD 40 MG IV VIAL IVP SCH (08:16)
--- NOTE | 2018-11-01 10:25 | Hospitalist Progress Note ---
Subjective Progress Notes Subjective Feeling a bit better overall. Physical Exam Vital Signs Date Time Temp Pulse Resp B/P (MAP) Pulse Ox O2 Delivery O2 Flow Rate FiO2 11/01/18 09:07 85 11/01/18 07:44 Nasal Cannula 1.5 11/01/18 07:24 98.4 18 148/84 (105) 11/01/18 06:32 109 l Intake and Output 11/01/18 07:00 Intake Total 2990 ml Output Total 3900 ml Balance -910 ml Intake IV Total 2990 ml Output Urine Total 750 ml Stool Total 150 ml Gastric Drainage Total 3000 ml # Bowel Movements 1 General Appearance: Alert, Awake, No Acute Distress, Afebrile Neuro: No Gross deficits Eyes: PERRLA Neck: Other (NG tube in place.) Cardiovascular: Other (Irregularly irregular and tachycardic.) Respiratory: No Respiratory Distress, Clear to Auscultation GI: Soft and Non-Tender Extremities: Warm, Perfused Psych: Appropriate Mood & Affect Result Diagram: 10/31/1851811/01/18530 Assessment and Plan Problems: (1) Afib Status: Chronic Assessment & Plan: He is on chronic treatment with diltiazem and warfarin. He is currently NPO and is receiving metoprolol for rate control. His heart rate is in the low 100s. Will monitor. His warfarin is held in anticipation of surgery. (2) Urinary tract infection Status: Acute Assessment & Plan: He does self catheter at home. His urine was positive for nitrite and leukocytes, but he is afebrile and his WBC is normal. He was started on ceftriaxone empirically and also received a dose of vancomycin. He did develop a rash after receiving the vancomycin. His urine culture is growing Enterobacter cloacae which is sensitive to Rocephin.. (3) Acute on chronic renal failure Status: Acute Assessment & Plan: His creatinine improved with IV fluids and appears to be close to his baseline when compared to prior results. (4) Prostate cancer metastatic to multiple sites Status: Chronic Assessment & Plan: He has had previous radiation therapy. (5) Diabetes mellitus type 2, diet-controlled Status: Chronic Assessment & Plan: He is on sliding scale level #1. BS have been well controlled. Time Spent on Plan of Care: < 30 min Exam Sepsis Risk: No Definite Risk Problem Qualifiers (1) Afib: Atrial fibrillation type: chronic Qualified Codes: I48.2 - Chronic atrial fibrillation (2) Urinary tract infection: Urinary tract infection type: acute cystitis Hematuria presence: without hematuria Qualified Codes: N30.00 - Acute cystitis without hematuria YON SCOTT MD Nov 01, 2018 10:24
--- NOTE | 2018-11-01 10:50 | General Surgery Progress Note ---
Subjective Progress Notes Subjective Feeling better, denies nausea. "I want to get out of bed and walk." Physical Exam Vital Signs Date Time Temp Pulse Resp B/P (MAP) Pulse Ox O2 Delivery O2 Flow Rate FiO2 11/01/18 09:07 85 11/01/18 07:44 Nasal Cannula 1.5 11/01/18 07:24 98.4 18 148/84 (105) 11/01/18 06:32 109 Intake and Output 11/01/18 07:00 Intake Total 2990 ml Output Total 3900 ml Balance -910 ml Intake IV Total 2990 ml Output Urine Total 750 ml Stool Total 150 ml Gastric Drainage Total 3000 ml # Bowel Movements 1 General Appearance: Alert, Awake, No Acute Distress, Afebrile Neuro: No Gross deficits ENT: Moist Mucous Membranes Cardiovascular: Regular Rate and Rhythm Respiratory: No Respiratory Distress, Clear to Auscultation GI: Soft and Non-Tender (stoma output increasing, BS present.) Extremities: Soft and Non Tender Psych: Alert & Oriented X3, Appropriate Mood & Affect Result Diagram: 10/31/1851811/01/1831 Assessment and Plan Problems: (1) Small bowel obstruction Status: Acute Assessment & Plan: 10/29/18: Admit to surgical service, IV fluids, bowel rest, NG tube decompression, reverse anticoagulation as abdominal exam is relatively benign with high likelihood of needing surgical repair of his parastomal hernia tomorrow unless the obstruction resolves overnight. We'll ask the hospitalist service to consult given this patient's many comorbidities to help manage his a- fib, CHF, renal insufficiency, etc. Will spend tonight reversing his anticoagulation and optimizing him for surgical intervention with plans for surgery tomorrow if things do not improve overnight. I have explained this plan to the patient in detail and he seems to understand and seems to agree with this plan. 10/30/18: Doing better. Labs pending still this morning. Hospitalist is working on rate control today, they would like improved control prior to s urgery. I will add him on to the OR schedule to follow my elective surgeries this evening for open parastomal hernia repair and if rate not controlled or other contraindications to surgery arise during the day then will cancel surgery and see how he is medically tomorrow. His abdominal exam is benign this morning but still with SBO without any stoma activity since admission yesterday. Continue bowel rest, NG tube decompression, IV fluids today. Hold on lovenox as he's still under influence of warfarin and will want his coagulopathy reversed before surgery. PPI for GI prophylaxis. Abx for UTI. 10/31/18: Seems to be doing better but still with poor stoma output. Will get SBFT (water-soluble) today. If fails to open up, will require surgical exploration in the next day or two. Continue PPI, hold on lovenox for now. A- fib rate control seems to be better controlled. 11/01/18: Feeling better, stoma has started to put out with over 400 ml this am thus far. Will start clamping NG for 4 hours and then unclamping and repeat. SBFT showed no definitive point of obstruction. Abdomen remains benign. Labs okay. Will get him up and ambulating with assistance. Okay to resume Lovenox. Discussed with hospitalist and they will start PPN. Recheck labs and F/U abdomen radiographs in am. 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 (10) Urinary tract infection Status: Acute Assessment & Plan: ABX Exam Sepsis Risk: No Definite Risk Problem Qualifiers (1) Parastomal hernia: Obstruction and gangrene presence: with obstruction but without gangrene Qualified Codes: K43.3 - Parastomal hernia with obstruction, without gangrene (2) Chronic heart failure: Heart failure type: unspecified Qualified Codes: I50.9 - Heart failure, unspecified (3) Afib: Atrial fibrillation type: chronic Qualified Codes: I48.2 - Chronic atrial fibrillation (4) Chronic renal failure: Chronic kidney disease stage: unspecified stage Qualified Codes: N18.9 - Chronic kidney disease, unspecified (5) Urinary tract infection: Urinary tract infection type: acute cystitis Hematuria presence: without hematuria Qualified Codes: N30.00 - Acute cystitis without hematuria JOSE CARTAGENA MD Nov 01, 2018 10:50
[2018-11-01] MEDS ORDERED: FAMOTIDINE IV SCH (11:00)
[2018-11-01] MEDS ORDERED: [UNRECOGNIZED DRUG - OTHER] IV SCH (11:00)
[2018-11-01] MEDS ORDERED: MULTIVITAMINS IV SCH (11:00)
--- NOTE | 2018-11-01 11:06 | Medical Nutrition Therapy ---
Nutrition Anthropometrics Height (Inches): 72.00 Height (Calculated Centimeters: 182.169344 Weight (Pounds): 161 Weight (Calculated Kilograms): 73.255 BMI: 21.88 Jerson Nutrition Score: Adequate Jerson Nutrition Risk Score: 17 Dietary Referral Nutrition Risk Factors: Unplanned Loss >10lbs Nutrition Risk Comment: 30 lb weight loss in 1 month Physical Findings Physical Appearance: Skin Appearance Skin Appearance: Edema Edema Location Modifier: Both Edema Location: Foot Type of Edema: Degree of Edema: Gastrointestinal Symptoms GI Symtoms: Change in Bowel Pattern Tube Present: NG Bowel Sounds: Recent Bowel Pattern: Stool Characteristics: Nutritional Diagnosis Nutritional Risk Acuity 1: GI Obstruction Nutritional Risk Acuity 2: Chronic Renal Failure Nutritional Risk Acuity 3: OR & > 80 yrs, Nausea Nutritional Risk Acuity 4: %IBW 90-100% Past Medical History: Hx of ileostomy, chronic renal insufficiency, COPD, afib, prostate cancer, 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 Food/Eulalia Intake Nutrition Problem/Etiology/Sym: 10/30 Increased nutrient needs related to inadequate food/beverage intake as evidence by NPO diet day 2 Energy Requirement: 1828 Protein Requirement: 73 Fluid Requirement: 1828 Diet Type: NPO (Nothing by Mouth) Nutrition Intervention: Incr diet as tolerated Nutritional Needs Comment: 10/30 pt is NPO for surgery, will monitor intake when pt is no longer NPO Nutritional Support Recommended Enteral / Parental: TPN Recommended Feeding Route: FT Placed Nasogastric Recommended Rate: 15.2mL/hr Recommended Goal Rate: 76.2mL/hr Recommended Duration: 24 Recommended Calories: 1824 Recommended Protein: 73 Recommended Lipids Calories: 622 Total Recommended Calories: 1828 Nutrition Monitoring & Eval Nutritional Goals Comment: Progress to oral diet when tolerated Nutrition Monitoring: Pt to begin TPN on 11/01 Patient Assessment Time: [address] Assessment Type: RD Assessment Patient Nutrition Acuity: 1-High Follow Up Date: Nov 02, 2018 Nutritional Comment: 10/30 Pt admitted with GI problems. 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 Pt dx with small bowel obstruction, Parastoma Hernia, T2DM, CHF, a-fib, Chronic Renal Failure, and UTI. Pt is currently NPO with a nasogastric tube to help remove the blockage before hernia surgery. Pt was taken off Warfarin to thicken blood before surgery, but will continue after surgery. Pt has elevated Creatinine (2.5), BUN (50), K+ (5.2), and RG (155), Hgb (12.4), Hct (36.6), Na (136), and CO2 (19) are all low. Pt will be monitored on the ADA diet after surgery for adequate intake. CD 11/01/18 Pt now has UTI. Pt on a multivitamin and insulin. Whole blood glucose has ranged from 100-118, BUN is elevated at 40 and creatinine of 2.30 is elevated. Pt has non-pitting edema in both feet. Notes from nursing report a 30# wt loss in 1 month. Pt diet changed from NPO to TPN. 76.2mL/hr for 24 hours will meet 100% of kcal needs. Recommend to start at 15.2mL/hr until tolerance has been established. Monitor for tolerence of TPN. -WESLEY LOPEZ Nov 01, 2018 11:06
[2018-11-01] MEDS: HEPARIN (PORC) 5000 UN/ML VIAL SC SCH ×2 (11:10→20:19)
[2018-11-01 12:18] VITALS: BP 153/80
[2018-11-01 14:40] VITALS: BP 145/85
--- NOTE | 2018-11-01 15:41 | NUR ---
Physical Therapy Impression PT eval complete. Pt amb x30' with RW, CGA, O2. Pt was steady throughout and benefitted from verbal cuing for IV line and O2 line management. Pt expressed willingness to participate more with therapy but that he would really like to get some rest. Rec for d/c pending medical progress. Physical Therapy Goals 1. Pt to ambulate x50' with RW, CGA. 2. Pt to ascend/descend 3 stairs with railing. 3. Pt to perform transfers and bed mobility Matheus and SBA. Patient's Goals
[2018-11-01 19:56] VITALS: BP 145/85
[2018-11-01] MEDS: ACETAMINOPHEN(*)1000 MG/100 ML 100 ML IVPB PRN (20:26)
[2018-11-01] MEDS: ONDANSETRON 4 MG/2 ML VIAL IVP PRN (20:26)
[2018-11-02] VITALS (8 sets, daily range): BP systolic 108–142; BP diastolic 73–91
[2018-11-02] MEDS: METOPROLOL TART 5 MG/5 ML VIAL IVP SCH ×4 (00:54→17:32)
[2018-11-02 05:59] LABS: PLATELET COUNT, AUTOMATED 149 K/uL (150-450)
[2018-11-02] MEDS ORDERED: [UNRECOGNIZED DRUG - OTHER] IV SCH (07:45)
[2018-11-02] MEDS ORDERED: FAMOTIDINE IV SCH (07:45)
[2018-11-02] MEDS ORDERED: MULTIVITAMINS IV SCH (07:45)
[2018-11-02] MEDS: PANTOPRAZOLE SOD 40 MG IV VIAL IVP SCH (09:03)
[2018-11-02] MEDS: HEPARIN (PORC) 5000 UN/ML VIAL SC SCH ×2 (09:03→20:29)
--- NOTE | 2018-11-02 09:27 | Hospitalist Progress Note ---
Subjective Progress Notes Subjective He reports feeling improved. No fever. Physical Exam Vital Signs Date Time Temp Pulse Resp B/P (MAP) Pulse Ox O2 Delivery O2 Flow Rate FiO2 11/02/18 06:42 98.6 108 20 97 Nasal Cannula 0.5 11/02/18 06:40 124/85 (98) Intake and Output 11/02/18 07:00 Intake Total 1030 ml Output Total 2700 ml Balance -1670 ml Intake Oral 30 ml IV Total 1000 ml Output Urine Total 900 ml Stool Total 700 ml Gastric Drainage Total 1100 ml General Appearance: Alert, Awake Cardiovascular: Other (Irregular) Respiratory: Other (fairly clear) Psych: Alert & Oriented X3 Result Diagram: 11/02/18 0532 11/02/18 0532 Assessment and Plan Problems: (1) Afib Status: Chronic Assessment & Plan: He is on chronic treatment with diltiazem and warfarin. He is currently NPO and is receiving metoprolol for rate control. His heart rate has been in the low 100s. Will continue to monitor. His warfarin has been held and is on "mini-heparin". (2) Urinary tract infection Status: Acute Assessment & Plan: He does self catheter at home. His urine was positive for nitrite and leukocytes, but he is afebrile and his WBC is normal. He was started on ceftriaxone empirically and also received a dose of vancomycin. He did develop a rash after receiving the vancomycin. His urine culture did grow Enterobacter cloacae which is sensitive to Rocephin. As he did not have any fever and WBC count was normal even at the time of admission, it was felt this may not have been infection and possibly colonization. Antibiotics have been stopped. Will check UA with culture again today. (3) Acute on chronic renal failure Status: Acute Assessment & Plan: His creatinine has improved with IV fluids and appears to be close to his baseline when compared to prior results. (4) Prostate cancer metastatic to multiple sites Status: Chronic Assessment & Plan: He has had previous radiation therapy. (5) Diabetes mellitus type 2, diet-controlled Status: Chronic Assessment & Plan: He is on sliding scale level #1. BS have been well controlled. Exam Sepsis Risk: No Definite Risk Problem Qualifiers (1) Afib: Atrial fibrillation type: chronic Qualified Codes: I48.2 - Chronic atrial fibrillation (2) Urinary tract infection: Urinary tract infection type: acute cystitis Hematuria presence: without hematuria Qualified Codes: N30.00 - Acute cystitis without hematuria CASPER SCOTT MD Nov 02, 2018 09:27
--- NOTE | 2018-11-02 09:33 | Medical Nutrition Therapy ---
Nutrition Anthropometrics Height (Inches): 72.00 Height (Calculated Centimeters: 182.333476 Weight (Pounds): 161 Weight (Calculated Kilograms): 73.255 BMI: 21.88 Jerson Nutrition Score: Probably Inadequate Jerson Nutrition Risk Score: 18 Dietary Referral Nutrition Risk Factors: Unplanned Loss >10lbs Nutrition Risk Comment: 30 lb weight loss in 1 month Physical Findings Physical Appearance: Skin Appearance Skin Appearance: Edema Edema Location Modifier: Both Edema Location: Foot Type of Edema: Degree of Edema: Gastrointestinal Symptoms GI Symtoms: Change in Bowel Pattern Tube Present: NG Bowel Sounds: Recent Bowel Pattern: Stool Characteristics: Nutritional Diagnosis Nutritional Risk Acuity 1: GI Obstruction Nutritional Risk Acuity 2: Chronic Renal Failure Nutritional Risk Acuity 3: OR & > 80 yrs, Nausea Nutritional Risk Acuity 4: %IBW 90-100% Past Medical History: Hx of ileostomy, chronic renal insufficiency, COPD, afib, prostate cancer, 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 Food/Eulalia Intake Nutrition Problem/Etiology/Sym: 10/30 Increased nutrient needs related to inadequate food/beverage intake as evidence by NPO diet day 2 Energy Requirement: 1828 Protein Requirement: 73 Fluid Requirement: 1828 Diet Type: NPO (Nothing by Mouth) Nutrition Intervention: Incr diet as tolerated Nutritional Needs Comment: 10/30 pt is NPO for surgery, will monitor intake when pt is no longer NPO Nutritional Support Recommended Enteral / Parental: TPN Recommended Feeding Route: FT Placed Nasogastric Recommended Rate: 15.2mL/hr Recommended Goal Rate: 76.2mL/hr Recommended Duration: 24 Recommended Calories: 1824 Recommended Protein: 73 Recommended Lipids Calories: 622 Total Recommended Calories: 1828 Nutrition Monitoring & Eval Nutrition Monitoring: PT on 83mL/hr of TPN, meeting needs RD Patient Assessment Time: [address] Assessment Type: RD Assessment Patient Nutrition Acuity: 1-High Follow Up Date: Nov 03, 2018 Nutritional Comment: 10/30 Pt admitted with GI problems. 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 Pt dx with small bowel obstruction, Parastoma Hernia, T2DM, CHF, a-fib, Chronic Renal Failure, and UTI. Pt is currently NPO with a nasogastric tube to help remove the blockage before hernia surgery. Pt was taken off Warfarin to thicken blood before surgery, but will continue after surgery. Pt has elevated Creatinine (2.5), BUN (50), K+ (5.2), and RG (155), Hgb (12.4), Hct (36.6), Na (136), and CO2 (19) are all low. Pt will be monitored on the ADA diet after surgery for adequate intake. CD 11/01/18 Pt now has UTI. Pt on a multivitamin and insulin. Whole blood glucose has ranged from 100-118, BUN is elevated at 40 and creatinine of 2.30 is elevated. Pt has non-pitting edema in both feet. Notes from nursing report a 30# wt loss in 1 month. Pt diet changed from NPO to TPN. 76.2mL/hr for 24 hours will meet 100% of kcal needs. Recommend to start at 15.2mL/hr until tolerance has been established. Monitor for tolerence of TPN. -[place] 11/02/18 Pt on 83mL/hr of TPN, which is meeting needs. Pt BUN increased to 45, while creatinine decreased to 1.90. Albumin remains low at 3.4. Pt taking heparin and insulin. Pt has non-pitting edema in both feet. MD note states pt feels better. Monitor for tolerance of TPN. -WESLEY LOPEZ Nov 02, 2018 09:33
--- NOTE | 2018-11-02 10:59 | General Surgery Progress Note ---
Subjective Progress Notes Subjective No complaints Physical Exam Vital Signs Date Time Temp Pulse Resp B/P (MAP) Pulse Ox O2 Delivery O2 Flow Rate FiO2 11/02/18 06:42 98.6 108 20 97 Nasal Cannula 0.5 11/02/18 06:40 124/85 (98) Intake and Output 11/02/18 07:00 Intake Total 1030 ml Output Total 2700 ml Balance -1670 ml Intake Oral 30 ml IV Total 1000 ml Output Urine Total 900 ml Stool Total 700 ml Gastric Drainage Total 1100 ml General Appearance: Alert, Awake, No Acute Distress, Afebrile GI: Soft and Non-Tender, Other (Bowel sounds normoactive, stoma functioning) Result Diagram: 11/02/18 0532 11/02/18 0532 Assessment and Plan Problems: (1) Small bowel obstruction Status: Acute Assessment & Plan: 10/29/18: Admit to surgical service, IV fluids, bowel rest, NG tube decompression, reverse anticoagulation as abdominal exam is relatively benign with high likelihood of needing surgical repair of his parastomal hernia tomorrow unless the obstruction resolves overnight. We'll ask the hospitalist service to consult given this patient's many comorbidities to help manage his a- fib, CHF, renal insufficiency, etc. Will spend tonight reversing his anticoagulation and optimizing him for surgical intervention with plans for surgery tomorrow if things do not improve overnight. I have explained this plan to the patient in detail and he seems to understand and seems to agree with this plan. 10/30/18: Doing better. Labs pending still this morning. Hospitalist is working on rate control today, they would like improved control prior to surgery. I will add him on to the OR schedule to follow my elective surgeries this evening for open parastomal hernia repair and if rate not controlled or other contraindications to surgery arise during the day then will cancel surgery and see how he is medically tomorrow. His abdominal exam is benign this morning but still with SBO without any stoma activity since admission yesterday. Continue bowel rest, NG tube decompression, IV fluids today. Hold on lovenox as he's still under influence of warfarin and will want his coagulopathy reversed before surgery. PPI for GI prophylaxis. Abx for UTI. 10/31/18: Seems to be doing better but still with poor stoma output. Will get SBFT (water-soluble) today. If fails to open up, will require surgical exploration in the next day or two. Continue PPI, hold on lovenox for now. A- fib rate control seems to be better controlled. 11/01/18: Feeling better, stoma has started to put out with over 400 ml this am thus far. Will start clamping NG for 4 hours and then unclamping and repeat. SBFT showed no definitive point of obstruction. Abdomen remains benign. Labs okay. Will get him up and ambulating with assistance. Okay to resume Lovenox. Discussed with hospitalist and they will start PPN. Recheck labs and F/U abdomen radiographs in am. 11/02/18: Tolerated clamping NGT x 4 h and unclamping for 4 h. Stoma output increasing. Remains pain free. Will increase clamping trial to 8 hours clamped and unclamp x 2h. Continue PPN. Encouraged to continue ambulating. On Heparin for VTE chemoprophylaxis. If tolerating clamping today will plan to remove NGT tomorrow am and then start clear liquids. 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 (10) Urinary tract infection Status: Acute Assessment & Plan: ABX Exam Sepsis Risk: No Definite Risk Problem Qualifiers (1) Parastomal hernia: Obstruction and gangrene presence: with obstruction but without gangrene Qualified Codes: K43.3 - Parastomal hernia with obstruction, without gangrene (2) Chronic heart failure: Heart failure type: unspecified Qualified Codes: I50.9 - Heart failure, unspecified (3) Afib: Atrial fibrillation type: chronic Qualified Codes: I48.2 - Chronic atrial fibrillation (4) Chronic renal failure: Chronic kidney disease stage: unspecified stage Qualified Codes: N18.9 - Chronic kidney disease, unspecified (5) Urinary tract infection: Urinary tract infection type: acute cystitis Hematuria presence: without hematuria Qualified Codes: N30.00 - Acute cystitis without hematuria JOSE CARTAGENA MD Nov 02, 2018 10:59
[2018-11-02] MEDS: LR(*) 1000 ML BAG 1,000 ML IV PRN (11:13)
[2018-11-02] MEDS: [UNRECOGNIZED DRUG - OTHER] IV SCH (11:14)
[2018-11-02] MEDS: FAMOTIDINE IV SCH (11:14)
[2018-11-02] MEDS: MULTIVITAMINS IV SCH (11:14)
--- NOTE | 2018-11-02 12:44 | RADIOLOGY IMAGING REPORT ---
FACILITY: [facility] [place]IENT NAME: Trever Shen : 1935 MR: [id number] V: [id number] EXAM DATE: ORDERING PHYSICIAN: JOSE CARTAGENA TECHNOLOGIST: Location: [facility] Patient: Trever Shen : 1935 Visit/Account:[id number] Date of Sevice: 11/02/2018 ABDOMEN AP ERECT AND/OR DECUB HISTORY: Follow-up small bowel follow-through. Small bowel obstruction. COMPARISON: 10/31/2018 small bowel follow-through FINDINGS: Nasogastric tube coursing into the stomach. Multiple dilated small bowel loops with air-fluid levels measuring up to 4.3 cm. Interval clearing of Gastrografin from the small bowel. Right lower quadrant ileostomy noted. Mild blunting of the right costophrenic angle. Mild dextroscoliosis with mild-modera te degenerative changes within the spine. IMPRESSION: 1. Interval clearing of Gastrografin from the small bowel. Persistent dilated small bowel loops measu ring up to 4.3 cm with air-fluid levels. Report Dictated By: Dameon Gomez MD at 11/02/2018 12:38 PM Report E-Signed By: Dameon Gomez MD at 11/02/2018 12:41 PM WSN:[id number]
[2018-11-03] MEDS: MULTIVITAMINS IV SCH (00:20)
[2018-11-03] MEDS: FAMOTIDINE IV SCH (00:20)
[2018-11-03] MEDS: [UNRECOGNIZED DRUG - OTHER] IV SCH (00:20)
[2018-11-03] MEDS: METOPROLOL TART 5 MG/5 ML VIAL IVP SCH ×4 (00:21→18:44)
[2018-11-03 03:13] VITALS: BP 124/88
[2018-11-03 05:50] LABS: PLATELET COUNT, AUTOMATED 149 K/uL (150-450)
[2018-11-03 07:04] VITALS: BP 133/89
[2018-11-03] MEDS: PANTOPRAZOLE SOD 40 MG IV VIAL IVP SCH (08:53)
[2018-11-03] MEDS: HEPARIN (PORC) 5000 UN/ML VIAL SC SCH ×2 (08:53→21:07)
--- NOTE | 2018-11-03 08:53 | General Surgery Progress Note ---
Subjective Progress Notes Subjective No complaints this morning. No abdominal pain at this point. Not much ileostomy output. Physical Exam Vital Signs Date Time Temp Pulse Resp B/P (MAP) Pulse Ox O2 Delivery O2 Flow Rate FiO2 11/03/18 07:04 97.4 108 18 133/89 (104) 96 Room Air 11/02/18 16:20 0.5 Intake and Output 11/03/18 06:59 Intake Total 1866 ml Output Total 1965 ml Balance -99 ml Intake Oral 1000 ml IV Total 866 ml Output Urine Total 815 ml Gastric Drainage Total 1150 ml General Appearance: Alert, Awake, No Acute Distress, Afebrile GI: Soft and Non-Tender, Other (Stoma is pink with small amount of liquid in the bag, no gas in the bag.) Extremities: Warm, Perfused Result Diagram: 11/03/1852811/03/18528 Assessment and Plan Problems: (1) Small bowel obstruction Status: Acute Assessment & Plan: 10/29/18: Admit to surgical service, IV fluids, bowel rest, NG tube decompression, reverse anticoagulation as abdominal exam is relatively benign with high likelihood of needing surgical repair of his parastomal hernia tomorrow unless the obstruction resolves overnight. We'll ask the hospitalist service to consult given this patient's many comorbidities to help manage his a- fib, CHF, renal insufficiency, etc. Will spend tonight reversing his anticoagulation and optimizing him for surgical intervention with plans for surgery tomorrow if things do not improve overnight. I have explained this plan to the patient in detail and he seems to understand and seems to agree with this plan. 10/30/18: Doing better. Labs pending still this morning. Hospitalist is working on rate control today, they would like improved control prior to surgery. I will add him on to the OR schedule to follow my elective surgeries this evening for open parastomal hernia repair and if rate not controlled or other contraindications to surgery arise during the day then will cancel surgery and see how he is medically tomorrow. His abdominal exam is benign this morning but still with SBO without any stoma activity since admission yesterday. Continue bowel rest, NG tube decompression, IV fluids today. Hold on lovenox as he's still under influence of warfarin and will want his coagulopathy reversed before surgery. PPI for GI prophylaxis. Abx for UTI. 10/31/18: Seems to be doing better but still with poor stoma output. Will get SBFT (water-soluble) today. If fails to open up, will require surgical exploration in the next day or two. Continue PPI, hold on lovenox for now. A-fib rate control seems to be better controlled. 11/01/18: Feeling better, stoma has started to put out with over 400 ml this am thus far. Will start clamping NG for 4 hours and then unclamping and repeat. SBFT showed no definitive point of obstruction. Abdomen remains benign. Labs okay. Will get him up and ambulating with assistance. Okay to resume Lovenox. Discussed with hospitalist and they will start PPN. Recheck labs and F/U abdomen radiographs in am. 11/02/18: Tolerated clamping NGT x 4 h and unclamping for 4 h. Stoma output increasing. Remains pain free. Will increase clamping trial to 8 hours clamped and unclamp x 2h. Continue PPN. Encouraged to continue ambulating. On Heparin for VTE chemoprophylaxis. If tolerating clamping today will plan to remove NGT tomorrow am and then start clear liquids. 11/03/18: Tolerating clamp trials but not much ileostomy output and I connected NG tube to suction and removed about 150cc bilious drainage. Not convinced the obstruction is totally resolved based on ileostomy output and KUB yesterday. Will repeat KUB this morning and if still with dilated small bowel and air fluid levels will have PICC line placed and convert PPN to TPN. Will continue NG tube clamp trials and if SBO is not absolutely resolved over the next day or two, w ill proceed with surgery. If doing better then will remove NG tube and slowly advance diet and see how he does. I have explained this plan to the patient and he seems to understand and he seems agreeable with this plan. 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 (10) Urinary tract infection Status: Resolved Assessment & Plan: ABX Last UA with culture negative for infection. Condition Stable. Time Spent: < 30 min Exam Sepsis Risk: No Definite Risk Problem Qualifiers (1) Parastomal hernia: Obstruction and gangrene presence: with obstruction but without gangrene Qualified Codes: K43.3 - Parastomal hernia with obstruction, without gangrene (2) Chronic heart failure: Heart failure type: unspecified Qualified Codes: I50.9 - Heart failure, unspecified (3) Afib: Atrial fibrillation type: chronic Qualified Codes: I48.2 - Chronic atrial fibrillation (4) Chronic renal failure: Chronic kidney disease stage: unspecified stage Qualified Codes: N18.9 - Chronic kidney disease, unspecified (5) Urinary tract infection: Urinary tract infection type: acute cystitis Hematuria presence: without hematuria Qualified Codes: N30.00 - Acute cystitis without hematuria SUNI BENJAMIN MD Nov 03, 2018 08:53
[2018-11-03] MEDS ORDERED: LIDOCAINE MPF 1% 5 ML VIAL ONE (09:45)
[2018-11-03] MEDS ORDERED: NS(*) 0.9% 10 ML VIAL 10 ML ONE (11:03)
[2018-11-03] MEDS: CLOTRIMAZOLE 1% CR 30 GM TUBE TP SCH ×2 (11:19→21:08)
[2018-11-03] MEDS: SALINE 0.65% NAS SPR 44 ML BTL PRN ×2 (11:19→13:15)
[2018-11-03 11:29] VITALS: BP 141/86
--- NOTE | 2018-11-03 12:52 | Medical Nutrition Therapy ---
Nutrition Anthropometrics Height (Inches): 72.00 Height (Calculated Centimeters: 182.927664 Weight (Pounds): 161 Weight (Calculated Kilograms): 73.255 BMI: 21.88 Jerson Nutrition Score: Probably Inadequate Jerson Nutrition Risk Score: 18 Dietary Referral Nutrition Risk Factors: Unplanned Loss >10lbs Nutrition Risk Comment: 30 lb weight loss in 1 month Physical Findings Physical Appearance: Skin Appearance Skin Appearance: Edema Edema Location Modifier: Both Edema Location: Foot Type of Edema: Degree of Edema: Gastrointestinal Symptoms GI Symtoms: Change in Bowel Pattern Tube Present: NG Bowel Sounds: Recent Bowel Pattern: Stool Characteristics: Nutrition/Food History > 10 lb Wt Loss/1 Month Nutritional Diagnosis Nutritional Risk Acuity 1: GI Obstruction Nutritional Risk Acuity 2: Chronic Renal Failure Nutritional Risk Acuity 3: OR & > 80 yrs, Nausea Nutritional Risk Acuity 4: %IBW 90-100% Past Medical History: Hx of ileostomy, chronic renal insufficiency, COPD, afib, prostate cancer, 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 Food/Eulalia Intake Nutrition Problem/Etiology/Sym: 10/30 Increased nutrient needs related to inadequate food/beverage intake as evidence by NPO diet day 2 Energy Requirement: 1828 Protein Requirement: 73 Fluid Requirement: 1828 Diet Type: NPO (Nothing by Mouth), TPN/PPN Nutrition Intervention: Incr diet as tolerated Nutritional Needs Comment: 10/30 pt is NPO for surgery, will monitor intake when pt is no longer NPO 11/03 pt is still NPO but is also receiving TPN Nutritional Support Current Enteral / Parental: TPN Rate: 63ml/hr Clinimix 5% AA 20% dextros Current Duration: 24 Current Calories: 1330 Current Protein: 76 Current Lipids Calories: 250 Total Current Calories: 1656 Recommended Enteral / Parental: TPN Recommended Feeding Route: FT Placed Nasogastric Recommended Goal Rate: 63ml clinimix 5%AA, 20% dextrose + 500 lipids Recommended Duration: 24 Recommended Calories: 1330 Recommended Protein: 76 Recommended Lipids Calories: 500 Total Recommended Calories: 1830 Nutrition Monitoring & Eval RD Patient Assessment Time: [address] Assessment Type: RD Re-Assessment Patient Nutrition Acuity: 1-High Follow Up Date: Nov 04, 2018 Nutritional Comment: 10/30 Pt admitted with GI problems. 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 Pt dx with small bowel obstruction, Parastoma Hernia, T2DM, CHF, a-fib, Chronic Renal Failure, and UTI. Pt is currently NPO with a nasogastric tube to help remove the blockage before hernia surgery. Pt was taken off Warfarin to thicken blood before surgery, but will continue after surgery. Pt has elevated Creatinine (2.5), BUN (50), K+ (5.2), and RG (155), Hgb (12.4), Hct (36.6), Na (136), and CO2 (19) are all low. Pt will be monitored on the ADA diet after surgery for adequate intake. CD 11/01/18 Pt now has UTI. Pt on a multivitamin and insulin. Whole blood glucose has ranged from 100-118, BUN is elevated at 40 and creatinine of 2.30 is elevated. Pt has non-pitting edema in both feet. Notes from nursing report a 30# wt loss in 1 month. Pt diet changed from NPO to TPN. 76.2mL/hr for 24 hours will meet 100% of kcal needs. Recommend to start at 15.2mL/hr until tolerance has been established. Monitor for tolerence of TPN. -AKG 11/02/18 Pt on 83mL/hr of TPN, which is meeting needs. Pt BUN increased to 45, while creatinine decreased to 1.90. Albumin remains low at 3.4. Pt taking heparin and insulin. Pt has non-pitting edema in both feet. MD note states pt feels better. Monitor for tolerance of TPN. -AKG 11/03 Pt is on a TPN of 63mL/hr of clinmix, 5/20, and 250mL of lipids. This meets the pt protein needs, but not his lipid and caloric needs. Recommend increasing the lipids to 500mL as pt can tollerate it to meet pt nutritioinal needs. Pt BUN is steady at 45 and his creatinine has decreased to 1.7, but these are still both high. Pt albumin is still low at 3.4. Pt has a whole blood glucose ranging from 90-112 in the past 24 hours, but pt is receiving insulin to help control pt high levels. Pt is on heparin, so K+ does not need to be monitored. Will continue to monitor pt as they progress to a solid food diet. Pt could benefit being placed on the ADA diet to help control his blood glucose levels once he starts consuming solid foods. CD Copies To Copies to: SUNI BENJAMIN MD ; NITO AC Nov 03, 2018 10:10
--- NOTE | 2018-11-03 13:56 | Hospitalist Progress Note ---
Subjective Progress Notes Subjective 83M admitted for SBO. Mayda overnight still limited output from ostomy. Physical Exam Vital Signs Date Time Temp Pulse Resp B/P (MAP) Pulse Ox O2 Delivery O2 Flow Rate FiO2 11/03/18 11:29 97.6 108 24 141/86 (104) 93 Room Air 108 11/02/18 16:20 0.5 l Intake and Output 11/03/18 07:00 Intake Total 1866 ml Output Total 1965 ml Balance -99 ml Intake Oral 1000 ml IV Total 866 ml Output Urine Total 815 ml Gastric Drainage Total 1150 ml General Appearance: No Acute Distress, Afebrile Respiratory: No Respiratory Distress Result Diagram: 11/03/1852811/03/18528 Assessment and Plan Problems: (1) Afib Status: Chronic Assessment & Plan: He is on chronic treatment with diltiazem and warfarin. He is currently NPO and is receiving metoprolol for rate control. His heart rate has been in the low 100s. Will continue to monitor. His warfarin has been held and is on "mini-heparin". (2) Urinary tract infection Status: Resolved Assessment & Plan: He does self catheter at home. His urine was positive for nitrite and leukocytes, but he is afebrile and his WBC is normal. He was started on ceftriaxone empirically and also received a dose of vancomycin. He did develop a rash after receiving the vancomycin. His urine culture did grow Enterobacter cloacae which is sensitive to Rocephin. Completed 3 day course of Rocephin. (3) Acute on chronic renal failure Status: Acute Assessment & Plan: His creatinine has improved with IV fluids and appears to be close to his baseline when compared to prior results. (4) Prostate cancer metastatic to multiple sites Status: Chronic Assessment & Plan: He has had previous radiation therapy. (5) Diabetes mellitus type 2, diet-controlled Status: Chronic Assessment & Plan: He is on sliding scale level #1. BS have been well controlled. Exam Sepsis Risk: No Definite Risk Problem Qualifiers (1) Afib: Atrial fibrillation type: chronic Qualified Codes: I48.2 - Chronic atrial fibrillation (2) Urinary tract infection: Urinary tract infection type: acute cystitis Hematuria presence: without hematuria Qualified Codes: N30.00 - Acute cystitis without hematuria SABRINA SHIELDSCAT Nov 03, 2018 13:56
--- NOTE | 2018-11-03 14:44 | RADIOLOGY IMAGING REPORT ---
FACILITY: [facility] [place] PATIENT NAME: Trever Shen : 1935 MR: [id number] V: [id number] EXAM DATE: ORDERING PHYSICIAN: SUNI BENJAMIN TECHNOLOGIST: Location: [facility] [place] Patient: Trever Shen : 1935 Visit/Account:[id number] Date of Sevice: 11/03/2018 Exam type: KUB SINGLE VIEW ABDOMEN History: SBO Comparison: November 02, 2018. Findings: Persistently dilated loops of small bowel are again seen throughout the abdomen and pelvis which appe ar to be increased slightly in diameter now measuring up to 5.4 cm. Esophagogastric tube appears unc hanged. There are surgical clips the right upper quadrant. Additional tubing projects over the lowe r pelvis. There is a dextroconvex scoliosis lumbar spine with extensive degenerative changes IMPRESSION: 1. Dilated loops of small bowel again seen throughout the pelvis which appear to be increased in michael meter now measuring up to 5.4 cm consistent with the history of an SBO Report Dictated By: Alysha Garsia MD at 11/03/2018 2:37 PM Report E-Signed By: Alysha Garsia MD at 11/03/2018 2:39 PM WSN:[email or web address]
[2018-11-03] MEDS: LR(*) 1000 ML BAG 1,000 ML IV PRN (14:53)
--- NOTE | 2018-11-03 15:20 | NUR ---
Physical Therapy Impression Pt perseverating on needing to void, does not understand use of catheter. Pt has difficulty getting to EOB from supine, but it is likely due to the hospital bed, as he is able to get into bed and scoot up in bed without any assistance or difficulty. CGA sit <> stand and ambulation x 80' with FWW. Assistance required throughout due to catheter mgmt and IV lines/pole. Pt may benefit from short term sub acute rehab or HH services, will depend on progress and length of stay on medical. Cont. with POC. Physical Therapy Goals 1. Pt to ambulate x50' with RW, CGA. 2. Pt to ascend/descend 3 stairs with railing. 3. Pt to perform transfers and bed mobility Matheus and SBA. Patient's Goals
[2018-11-03 15:58] VITALS: BP 134/85
[2018-11-03] MEDS ORDERED: INSULIN HUM REG 100 UN/ML 3 ML 10 UNIT, MULTIVITAMINS(*) 10 ML VIAL 10 ML, TRACE METALS... IV ONE (16:00)
[2018-11-03] MEDS: FAT EMULSION 20% 250 ML BAG 250 ML IVPB SCH (16:19)
--- NOTE | 2018-11-03 17:55 | RADIOLOGY IMAGING REPORT ---
FACILITY: [facility] PATIENT NAME: Trever Shen : 1935 MR: [id number] V: [id number] EXAM DATE: ORDERING PHYSICIAN: SUNI BENJAMIN TECHNOLOGIST: Location: [facility] Patient: Trever Shen : 1935 Visit/Account:[id number] Date of Sevice: 11/03/2018 Exam type: US GUIDANCE VASCULAR ACCESS, PICC LINE INSERTION History: PICC placement for TPN Comparison: None. Findings: Informed consent was obtained including potential risks and complications such as infection bleeding and blood clot. The patient's left arm was prepped and draped usual sterile fashion. Local anesthes ia was accomplished with 1% lidocaine. Utilizing direct continuous sonographic guidance the patent l eft brachial vein was accessed with a micropuncture kit. A guidewire was advanced, the needle was re moved and a peel-away sheath was then advanced over the guidewire. The guidewire was used to measure the length of the power PICC. A 41 cm long 5 Indonesian double lumen power PICC was inserted via the pa tent left brachial vein under fluoroscopic guidance with the distal tip resting in superior vena cava . The peel-away sheath was removed. Both lumens of power PICC were flushed with 5 mL of saline flus h. Proximal portion PICC line was adhered to the patient's arm the sterile dressing. The sonographi c images were saved to PACS. The procedure was accomplished without apparent cortication. The dose area product was 57.42 micro-Oneill per meter squared. IMPRESSION: 1. Successful placement of a 41 cm long trimmed 5 Indonesian double lumen power PICC inserted via the pa tent left brachial vein with the distal tip resting in superior vena cava Report Dictated By: Alysha Garsia MD at 11/03/2018 5:19 PM Report E-Signed By: Alysha Garsia MD at 11/03/2018 5:52 PM WSN:[email or web address]
--- NOTE | 2018-11-03 17:56 | RADIOLOGY IMAGING REPORT ---
FACILITY: [facility] PATIENT NAME: Trever Shen : 1935 MR: [id number] V: [id number] EXAM DATE: ORDERING PHYSICIAN: SUNI BENJAMIN TECHNOLOGIST: Location: [facility] Patient: Trever Shen : 1935 Visit/Account:[id number] Date of Sevice: 11/03/2018 Exam type: US GUIDANCE VASCULAR ACCESS, PICC LINE INSERTION History: PICC placement for TPN Comparison: None. Findings: Informed consent was obtained including potential risks and complications such as infection bleeding and blood clot. The patient's left arm was prepped and draped usual sterile fashion. Local anesthes ia was accomplished with 1% lidocaine. Utilizing direct continuous sonographic guidance the patent l eft brachial vein was accessed with a micropuncture kit. A guidewire was advanced, the needle was re moved and a peel-away sheath was then advanced over the guidewire. The guidewire was used to measure the length of the power PICC. A 41 cm long 5 Occitan double lumen power PICC was inserted via the pa tent left brachial vein under fluoroscopic guidance with the distal tip resting in superior vena cava . The peel-away sheath was removed. Both lumens of power PICC were flushed with 5 mL of saline flus h. Proximal portion PICC line was adhered to the patient's arm the sterile dressing. The sonographi c images were saved to PACS. The procedure was accomplished without apparent cortication. The dose area product was 57.42 micro-Oneill per meter squared. IMPRESSION: 1. Successful placement of a 41 cm long trimmed 5 Occitan double lumen power PICC inserted via the pa tent left brachial vein with the distal tip resting in superior vena cava Report Dictated By: Alysha Garsia MD at 11/03/2018 5:19 PM Report E-Signed By: Alysha Garsia MD at 11/03/2018 5:52 PM WSN:[email or web address]
[2018-11-03 18:30] VITALS: BP 136/83
[2018-11-03 23:14] VITALS: BP 136/87
[2018-11-04] VITALS (7 sets, daily range): BP systolic 107–140; BP diastolic 73–97
[2018-11-04] MEDS: METOPROLOL TART 5 MG/5 ML VIAL IVP SCH ×5 (00:07→22:00)
[2018-11-04] MEDS: INSULIN HUM LISPRO 100 UN/ML 3 ML VIAL SUBQ PRN (00:08)
[2018-11-04 06:04] LABS: PLATELET COUNT, AUTOMATED 147 K/uL (150-450)
[2018-11-04 06:14] LABS: INR 1.08
--- NOTE | 2018-11-04 07:27 | RADIOLOGY IMAGING REPORT ---
FACILITY: [facility] PATIENT NAME: Trever Shen : 1935 MR: [id number] V: [id number] EXAM DATE: ORDERING PHYSICIAN: SUNI BENJAMIN TECHNOLOGIST: Location: [facility] Patient: Trever Shen : 1935 Visit/Account:[id number] Date of Sevice: 11/04/2018 KUB SINGLE VIEW ABDOMEN HISTORY: Small bowel obstruction. Follow-up. COMPARISON: 11/03/2018 and studies dating to 11/05/2013. FINDINGS: A single AP supine view of the abdomen was obtained. NG or OG tube terminates in the distal stomach or proximal duodenum. There are external chest leads. There are persistently dilated small bowel loops throughout the abdomen. The degree of dilation and t he number of dilated bowel loops has slightly improved. No free air. There are surgical clips within the right upper quadrant from cholecystectomy. There is a Jones aviva ter projecting at the pelvis. There are pelvic phleboliths. There is mild to moderate degenerative ch chase of the spine. There is a rightward curvature of the lumbar spine. There is mild degenerative remigio nge of the hips. IMPRESSION: 1. Slight improvement in the degree bowel obstruction with persistently dilated small bowel loops. Report Dictated By: Meg Booker at 11/04/2018 7:20 AM Report E-Signed By: Meg Booker at 11/04/2018 7:22 AM WSN:[id number]
--- NOTE | 2018-11-04 08:23 | General Surgery Progress Note ---
Subjective Progress Notes Subjective No complaints this morning. No abdominal pain. Not much activity from stoma. Physical Exam Vital Signs Date Time Temp Pulse Resp B/P (MAP) Pulse Ox O2 Delivery O2 Flow Rate FiO2 11/04/18 07:04 97.7 102 20 117/78 (91) 93 11/04/18 06:00 Room Air 11/02/18 16:20 0.5 Intake and Output 11/04/18 07:00 Intake Total 2865 ml Output Total 3125 ml Balance -260 ml IV Total 2865 ml Output Urine Total 1500 ml Stool Total 150 ml Gastric Drainage Total 1475 ml # Voids 1 General Appearance: Alert, Awake, No Acute Distress, Afebrile GI: Soft and Non-Tender, Other (Stoma bag is empty, no stool or gas.) Extremities: Warm, Perfused Result Diagram: 11/04/18 0547 11/04/18546 Assessment and Plan Problems: (1) Small bowel obstruction Status: Acute Assessment & Plan: 10/29/18: Admit to surgical service, IV fluids, bowel rest, NG tube decompression, reverse anticoagulation as abdominal exam is relatively benign with high likelihood of needing surgical repair of his parastomal hernia tomorrow unless the obstruction resolves overnight. We'll ask the hospitalist service to consult given this patient's many comorbidities to help manage his a- fib, CHF, renal insufficiency, etc. Will spend tonight reversing his anticoagulation and optimizing him for surgical intervention with plans for surgery tomorrow if things do not improve overnight. I have explained this plan to the patient in detail and he seems to understand and seems to agree with this plan. 10/30/18: Doing better. Labs pending still this morning. Hospitalist is working on rate control today, they would like improved control prior to surgery. I will add him on to the OR schedule to follow my elective surgeries this evening for open parastomal hernia repair and if rate not controlled or other contraindications to surgery arise during the day then will cancel surgery and see how he is medically tomorrow. His abdominal exam is benign this morning but still with SBO without any stoma activity since admission yesterday. Continue bowel rest, NG tube decompression, IV fluids today. Hold on lovenox as he's still under influence of warfarin and will want his coagulopathy reversed before surgery. PPI for GI prophylaxis. Abx for UTI. 10/31/18: Seems to be doing better but still with poor stoma output. Will get SBFT (water-soluble) today. If fails to open up, will require surgical exploration in the next day or two. Continue PPI, hold on lovenox for now. A- fib rate control seems to be better controlled. 11/01/18: Feeling better, stoma has started to put out with over 400 ml this am thus far. Will start clamping NG for 4 hours and then unclamping and repeat. SBFT showed no definitive point of obstruction. Abdomen remains benign. Labs okay. Will get him up and ambulating with assistance. Okay to resume Lovenox. Discussed with hospitalist and they will start PPN. Recheck labs and F/U abdomen radiographs in am. 11/02/18: Tolerated clamping NGT x 4 h and unclamping for 4 h. Stoma output increasing. Remains pain free. Will increase clamping trial to 8 hours clamped and unclamp x 2h. Continue PPN. Encouraged to continue ambulating. On Heparin for VTE chemoprophylaxis. If tolerating clamping today will plan to remove NGT tomorrow am and then start clear liquids. 11/03/18: Tolerating clamp trials but not much ileostomy output and I connected NG tube to suction and removed about 150cc bilious drainage. Not convinced the obstruction is totally resolved based on ileostomy output and KUB yesterday. Will repeat KUB this morning and if still with dilated small bowel and air fluid levels will have PICC line placed and convert PPN to TPN. Will continue NG tube clamp trials and if SBO is not absolutely resolved over the next day or two, will proceed with surgery. If doing better then will remove NG tube and slowly advance diet and see how he does. I have explained this plan to the patient and he seems to understand and he seems agreeable with this plan. 11/04/18: SBO not resolving. Will continue clamp trials. If not resolved in 2 days then will proceed with surgical exploration. Continue TPN. CCM. 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 (10) Urinary tract infection Status: Resolved Assessment & Plan: ABX Last UA with culture negative for infection. Condition STable. Time Spent: < 30 min Exam Sepsis Risk: No Definite Risk Problem Qualifiers (1) Parastomal hernia: Obstruction and gangrene presence: with obstruction but without gangrene Qualified Codes: K43.3 - Parastomal hernia with obstruction, without gangrene (2) Chronic heart failure: Heart failure type: unspecified Qualified Codes: I50.9 - Heart failure, unspecified (3) Afib: Atrial fibrillation type: chronic Qualified Codes: I48.2 - Chronic atrial fibrillation (4) Chronic renal failure: Chronic kidney disease stage: unspecified stage Qualified Codes: N18.9 - Chronic kidney disease, unspecified (5) Urinary tract infection: Urinary tract infection type: acute cystitis Hematuria presence: without hematuria Qualified Codes: N30.00 - Acute cystitis without hematuria SUNI BENJAMIN MD Nov 04, 2018 08:23
[2018-11-04] MEDS: CLOTRIMAZOLE 1% CR 30 GM TUBE TP SCH ×2 (09:38→22:01)
[2018-11-04] MEDS: PANTOPRAZOLE SOD 40 MG IV VIAL IVP SCH (09:38)
[2018-11-04] MEDS: HEPARIN (PORC) 5000 UN/ML VIAL SC SCH ×2 (09:38→22:01)
[2018-11-04] MEDS: LR(*) 1000 ML BAG 1,000 ML IV PRN (10:12)
--- NOTE | 2018-11-04 15:27 | Hospitalist Progress Note ---
Subjective Progress Notes Subjective No cp/sob. No concerns from patient. Physical Exam Vital Signs Date Time Temp Pulse Resp B/P (MAP) Pulse Ox O2 Delivery O2 Flow Rate FiO2 11/04/18 14:27 97.4 112 24 129/81 (97) 89 Room Air 112 11/02/18 16:20 0.5 Intake and Output 11/04/18 07:00 Intake Total 2865 ml Output Total 3125 ml Balance -260 ml IV Total 2865 ml Output Urine Total 1500 ml Stool Total 150 ml Gastric Drainage Total 1475 ml # Voids 1 General Appearance: Alert, Awake, No Acute Distress Cardiovascular: Regular Rate and Rhythm Respiratory: Clear to Auscultation Extremities: No Edema Result Diagram: 11/04/1854611/04/18546 Assessment and Plan Problems: (1) Afib Status: Chronic Assessment & Plan: He is on chronic treatment with diltiazem and warfarin. He is currently NPO and is receiving metoprolol for rate control. His heart rate has been in the low 100s, will decrease the frequency of IV metoprolol for better heart rate control. His warfarin has been held and is on "mini-heparin". (2) Urinary tract infection Status: Resolved Assessment & Plan: He does self catheter at home. His urine was positive for nitrite and leukocytes, but he is afebrile and his WBC is normal. He was started on ceftriaxone empirically and also received a dose of vancomycin. He did develop a rash after receiving the vancomycin. His urine culture did grow Enterobacter cloacae which was sensitive to Rocephin. Completed 3 day course of Rocephin. Now growing yeast from most recent culture, but is asymptomatic. (3) Acute on chronic renal failure Status: Acute Assessment & Plan: His creatinine has improved with IV fluids and appears to be better than his baseline (creatinine of 2.0-2.2) (4) Prostate cancer metastatic to multiple sites Status: Chronic Assessment & Plan: He has had previous radiation therapy. (5) Diabetes mellitus type 2, diet-controlled Status: Chronic Assessment & Plan: He is on sliding scale level #1. BS have been well controlled. Exam Sepsis Risk: No Definite Risk Problem Qualifiers (1) Afib: Atrial fibrillation type: chronic Qualified Codes: I48.2 - Chronic atrial fibrillation (2) Urinary tract infection: Urinary tract infection type: acute cystitis Hematuria presence: without hematuria Qualified Codes: N30.00 - Acute cystitis without hematuria ATIYA MAJANO MD Nov 04, 2018 15:27
--- NOTE | 2018-11-04 15:41 | NUR ---
Physical Therapy Impression Pt able to stand from the low couch in his room with SBA, ambulate 150' with SBA/CGA using RW, and transfer sit>supine in hospital bed with SBA. PT to continue to see while at [facility] to prevent functional decline. Per nursing request, bed alarm set for Pt safety. Physical Therapy Goals 1. Pt to ambulate x50' with RW, CGA. 2. Pt to ascend/descend 3 stairs with railing. 3. Pt to perform transfers and bed mobility Matheus and SBA. Patient's Goals
[2018-11-04] MEDS: FAT EMULSION 20% 250 ML BAG 250 ML IVPB SCH (15:55)
[2018-11-04] MEDS: 1: INSULIN HUM REG 100 UN/ML 3 ML 10 UNIT, MULTIVITAMINS(*) 10 ML VIAL 10 ML, TRACE META IV SCH (15:55)
--- NOTE | 2018-11-04 16:32 | NUR ---
After ambulating with PT in [place] patient stated "It was just hurting a little in the middle of my tummy, if I press on it it's not hurting now" Addendum: 11/04/18 at 1633 by FAMILIA HEREDIA RN Amended: Links added.
[2018-11-05] VITALS (7 sets, daily range): BP systolic 124–140; BP diastolic 71–96
[2018-11-05] MEDS: METOPROLOL TART 5 MG/5 ML VIAL IVP SCH ×6 (01:16→20:27)
[2018-11-05] MEDS: LR(*) 1000 ML BAG 1,000 ML IV PRN (06:09)
[2018-11-05 06:10] LABS: PLATELET COUNT, AUTOMATED 129 K/uL (150-450)
--- NOTE | 2018-11-05 07:22 | RADIOLOGY IMAGING REPORT ---
FACILITY: PATIENT NAME: Trever Shen : 1935 MR: [id number] V: [id number] EXAM DATE: ORDERING PHYSICIAN: SUNI BENJAMIN TECHNOLOGIST: Location: [facility] Patient: Trever Shen : 1935 Visit/Account:[id number] Date of Sevice: 11/05/2018 KUB SINGLE VIEW ABDOMEN HISTORY: Small bowel obstruction. Follow-up. COMPARISON: 11/04/2018 and studies dating to 11/05/2013. FINDINGS: A single AP supine view of the abdomen was obtained. There are persistently dilated small bowel loops within the abdomen, not appreciably changed in size or number. No free air. There is an NG or OG tube terminating in the distal stomach/proximal duodenum. There are surgical cli ps the right upper quadrant from cholecystectomy. Jones catheter is present. There are pelvic phlebol iths. There is degenerative change of the spine. IMPRESSION: 1. No appreciable change in the number of dilated small bowel loops or of the degree of small bowel d ilation, compatible with persistent small bowel obstruction. Report Dictated By: Meg Booker at 11/05/2018 7:15 AM Report E-Signed By: Meg Booker at 11/05/2018 7:18 AM WSN:[id number]
--- NOTE | 2018-11-05 07:25 | General Surgery Progress Note ---
Subjective Progress Notes Subjective No complaints this morning. No pain. Increased stoma output overnight. Physical Exam Vital Signs Date Time Temp Pulse Resp B/P (MAP) Pulse Ox O2 Delivery O2 Flow Rate FiO2 11/05/18 04:10 106 11/05/18 03:37 98.1 18 126/71 (89) 97 Room Air 11/02/18 16:20 0.5 Intake and Output 11/05/18 07:00 Intake Total 2362 ml Output Total 2525 ml Balance -163 ml IV Total 2362 ml Output Urine Total 400 ml Stool Total 225 ml Gastric Drainage Total 1900 ml General Appearance: Alert, Awake, No Acute Distress, Afebrile GI: Soft and Non-Tender (Quite a bit of liquid stool in stoma bag.) Extremities: Warm, Perfused Result Diagram: 11/05/1853211/05/18532 Assessment and Plan Problems: (1) Small bowel obstruction Status: Acute Assessment & Plan: 10/29/18: Admit to surgical service, IV fluids, bowel rest, NG tube decompression, reverse anticoagulation as abdominal exam is relatively benign with high likelihood of needing surgical repair of his parastomal hernia tomorrow unless the obstruction resolves overnight. We'll ask the hospitalist service to consult given this patient's many comorbidities to help manage his a- fib, CHF, renal insufficiency, etc. Will spend tonight reversing his anticoagulation and optimizing him for surgical intervention with plans for surgery tomorrow if things do not improve overnight. I have explained this plan to the patient in detail and he seems to understand and seems to agree with this plan. 10/30/18: Doing better. Labs pending still this morning. Hospitalist is working on rate control today, they would like improved control prior to surgery. I will add him on to the OR schedule to follow my elective surgeries this evening for open parastomal hernia repair and if rate not controlled or other contraindications to surgery arise during the day then will cancel surgery and see how he is medically tomorrow. His abdominal exam is benign this morning but still with SBO without any stoma activity since admission yesterday. Continue bowel rest, NG tube decompression, IV fluids today. Hold on lovenox as he's still under influence of warfarin and will want his coagulopathy reversed before surgery. PPI for GI prophylaxis. Abx for UTI. 10/31/18: Seems to be doing better but still with poor stoma output. Will get SBFT (water-soluble) today. If fails to open up, will require surgical exploration in the next day or two. Continue PPI, hold on lovenox for now. A- fib rate control seems to be better controlled. 11/01/18: Feeling better, stoma has started to put out with over 400 ml this am thus far. Will start clamping NG for 4 hours and then unclamping and repeat. SBFT showed no definitive point of obstruction. Abdomen remains benign. Labs okay. Will get him up and ambulating with assistance. Okay to resume Lovenox. Discussed with hospitalist and they will start PPN. Recheck labs and F/U abdomen radiographs in am. 11/02/18: Tolerated clamping NGT x 4 h and unclamping for 4 h. Stoma output increasing. Remains pain free. Will increase clamping trial to 8 hours clamped and unclamp x 2h. Continue PPN. Encouraged to continue ambulating. On Heparin for VTE chemoprophylaxis. If tolerating clamping today will plan to remove NGT tomorrow am and then start clear liquids. 11/03/18: Tolerating clamp trials but not much ileostomy output and I connected NG tube to suction and removed about 150cc bilious drainage. Not convinced the obstruction is totally resolved based on ileostomy output and KUB yesterday. Will repeat KUB this morning and if still with dilated small bowel and air fluid levels will have PICC line placed and convert PPN to TPN. Will continue NG tube clamp trials and if SBO is not absolutely resolved over the next day or two, will proceed with surgery. If doing better then will remove NG tube and slowly advance diet and see how he does. I have explained this plan to the patient and he seems to understand and he seems agreeable with this plan. 11/04/18: SBO not resolving. Will continue clamp trials. If not resolved in 2 days then will proceed with surgical exploration. Continue TPN. [facility]. 11/05/18: Improved stoma output today. If persists will remove NG tube and start feeding him. If stoma output stops again will proceed with surgical explo ration tomorrow. Continue NG clamp trials and TPN. 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 (10) Urinary tract infection Status: Resolved Assessment & Plan: ABX Last UA with culture negative for infection. Condition Stable. Time Spent: < 30 min Exam Sepsis Risk: No Definite Risk Problem Qualifiers (1) Parastomal hernia: Obstruction and gangrene presence: with obstruction but without gangrene Qualified Codes: K43.3 - Parastomal hernia with obstruction, without gangrene (2) Chronic heart failure: Heart failure type: unspecified Qualified Codes: I50.9 - Heart failure, unspecified (3) Afib: Atrial fibrillation type: chronic Qualified Codes: I48.2 - Chronic atrial fibrillation (4) Chronic renal failure: Chronic kidney disease stage: unspecified stage Qualified Codes: N18.9 - Chronic kidney disease, unspecified (5) Urinary tract infection: Urinary tract infection type: acute cystitis Hematuria presence: without he maturia Qualified Codes: N30.00 - Acute cystitis without hematuria SUNI BENJAMIN MD Nov 05, 2018 07:25
--- NOTE | 2018-11-05 08:08 | Medical Nutrition Therapy ---
Nutrition Anthropometrics Height (Inches): 72.00 Height (Calculated Centimeters: 182.063256 Weight (Pounds): 167 Weight (Calculated Kilograms): 73.482 BMI: 22 Jerson Nutrition Score: Probably Inadequate Jerson Nutrition Risk Score: 17 Dietary Referral Nutrition Risk Factors: Unplanned Loss >10lbs Nutrition Risk Comment: 30 lb weight loss in 1 month Physical Findings Physical Appearance: Skin Appearance Skin Appearance: Edema Edema Location Modifier: Both Edema Location: Foot Type of Edema: Degree of Edema: Gastrointestinal Symptoms GI Symtoms: Change in Bowel Pattern Tube Present: NG Bowel Sounds: Recent Bowel Pattern: Stool Characteristics: Nutritional Diagnosis Nutritional Risk Acuity 1: GI Obstruction Nutritional Risk Acuity 2: Chronic Renal Failure Nutritional Risk Acuity 3: OR & > 80 yrs Nutritional Risk Acuity 4: %IBW 90-100% Past Medical History: Hx of ileostomy, chronic renal insufficiency, COPD, afib, prostate cancer, 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 Food/Eulalia Intake Nutrition Problem/Etiology/Sym: 10/30 Increased nutrient needs related to inadequate food/beverage intake as evidence by NPO diet day 2 Energy Requirement: 1828 Protein Requirement: 73 Fluid Requirement: 1828 Diet Type: NPO (Nothing by Mouth), TPN/PPN Nutrition Intervention: Incr diet as tolerated Nutritional Needs Comment: 10/30 pt is NPO for surgery, will monitor intake when pt is no longer NPO 11/03 pt is still NPO but is also receiving TPN Nutritional Support Current Enteral / Parental: TPN Rate: 63ml clinimix 5%AA, 20% dextrose + 500 lipids Current Duration: 24 Current Calories: 1330 Current Protein: 76 Current Lipids Calories: 500 Total Current Calories: 1830 Recommended Enteral / Parental: TPN Recommended Feeding Route: FT Placed Nasogastric Nutrition Monitoring & Eval RD Patient Assessment Time: [address] Assessment Type: RD Re-Assessment Patient Nutrition Acuity: 1-High Follow Up Date: Nov 04, 2018 Nutritional Comment: 10/30 Pt admitted with GI problems. 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 Pt dx with small bowel obstruction, Parastoma Hernia, T2DM, CHF, a-fib, Chronic Renal Failure, and UTI. Pt is currently NPO with a nasogastric tube to help remove the blockage before hernia surgery. Pt was taken off Warfarin to thicken blood before surgery, but will continue after surgery. Pt has elevated Creatinine (2.5), BUN (50), K+ (5.2), and RG (155), Hgb (12.4), Hct (36.6), Na (136), and CO2 (19) are all low. Pt will be monitored on the ADA diet after surgery for adequate intake. CD 11/01/18 Pt now has UTI. Pt on a multivitamin and insulin. Whole blood glucose has ranged from 100-118, BUN is elevated at 40 and creatinine of 2.30 is elevated. Pt has non-pitting edema in both feet. Notes from nursing report a 30# wt loss in 1 month. Pt diet changed from NPO to TPN. 76.2mL/hr for 24 hours will meet 100% of kcal needs. Recommend to start at 15.2mL/hr until tolerance has been established. Monitor for tolerence of TPN. -AKG 11/02/18 Pt on 83mL/hr of TPN, which is meeting needs. Pt BUN increased to 45, while creatinine decreased to 1.90. Albumin remains low at 3.4. Pt taking heparin and insulin. Pt has non-pitting edema in both feet. MD note states pt feels better. Monitor for tolerance of TPN. -AK 11/03 Pt is on a TPN of 63mL/hr of clinmix, /, and 250mL of lipids. This meets the pt protein needs, but not his lipid and caloric needs. Recommend increasing the lipids to 500mL as pt can tollerate it to meet pt nutritioinal needs. Pt BUN is steady at 45 and his creatinine has decreased to 1.7, but these are still both high. Pt albumin is still low at 3.4. Pt has a whole blood glucose ranging from 90-112 in the past 24 hours, but pt is receiving insulin to help control pt high levels. Pt is on heparin, so K+ does not need to be monitored. Will continue to monitor pt as they progress to a solid food diet. Pt could benefit being placed on the ADA diet to help control his blood glucose levels once he starts consuming solid foods. CD 11/04 Pt is meeting 100% of needs though TPN. Blood glucose is still running high WBG 134 and RBG 147, but is on insulin to help regulate. Will continue to monitor pt while on TPN and while progressing to a PO diet. NITO ROGER Nov 04, 2018 17:10
[2018-11-05] MEDS: PANTOPRAZOLE SOD 40 MG IV VIAL IVP SCH (08:40)
[2018-11-05] MEDS: HEPARIN (PORC) 5000 UN/ML VIAL SC SCH ×2 (08:40→20:27)
[2018-11-05] MEDS: 1: INSULIN HUM REG 100 UN/ML 3 ML 10 UNIT, MULTIVITAMINS(*) 10 ML VIAL 10 ML, TRACE META IV SCH (08:41)
[2018-11-05] MEDS: CLOTRIMAZOLE 1% CR 30 GM TUBE TP SCH ×2 (08:41→20:27)
--- NOTE | 2018-11-05 10:22 | Hospitalist Progress Note ---
Subjective Progress Notes Subjective This patient was admitted for possible bowel obstruction. He had no acute events overnight. Patient Complains of: Cardiovascular: No: Chest Pain Respiratory: No: Shortness of Breath Physical Exam Vital Signs Date Time Temp Pulse Resp B/P (MAP) Pulse Ox O2 Delivery O2 Flow Rate FiO2 11/05/18 04:10 106 11/05/18 03:37 98.1 18 126/71 (89) 97 Room Air 11/02/18 16:20 0.5 Intake and Output 11/05/18 07:00 Intake Total 2362 ml Output Total 2525 ml Balance -163 ml IV Total 2362 ml Output Urine Total 400 ml Stool Total 225 ml Gastric Drainage Total 1900 ml Cardiovascular: Regular Rate and Rhythm Respiratory: Clear to Auscultation Result Diagram: 11/05/1853211/05/18532 Assessment and Plan Problems: (1) Afib Status: Chronic Assessment & Plan: He is on chronic treatment with diltiazem and warfarin. He is currently NPO and is receiving metoprolol for rate control. Warfarin has been held and he is on "mini-heparin". (2) Urinary tract infection Status: Resolved Assessment & Plan: He does self catheter at home. His urine was positive for nitrite and leukocytes, but he is afebrile and his WBC is normal. He was started on ceftriaxone empirically and also received a dose of vancomycin. He did develop a rash after receiving the vancomycin. His urine culture did grow Enterobacter cloacae which was sensitive to Rocephin. Completed 3 day course of Rocephin. Now growing yeast from most recent culture, but is asymptomatic. (3) Acute on chronic renal failure Status: Acute Assessment & Plan: His creatinine has improved with IV fluids and appears to be better than his baseline (creatinine of 2.0-2.2) (4) Prostate cancer metastatic to multiple sites Status: Chronic Assessment & Plan: He has had previous radiation therapy. (5) Diabetes mellitus type 2, diet-controlled Status: Chronic Assessment & Plan: He is on sliding scale level #1. BS have been well controlled. Exam Sepsis Risk: No Definite Risk Problem Qualifiers (1) Afib: Atrial fibrillation type: chronic Qualified Codes: I48.2 - Chronic atrial fibrillation (2) Urinary tract infection: Urinary tract infection type: acute cystitis Hematuria presence: without hematuria Qualified Codes: N30.00 - Acute cystitis without hematuria GUEVARA,SUNI DO Nov 05, 2018 10:22
--- NOTE | 2018-11-05 10:45 | Medical Nutrition Therapy ---
Nutrition Anthropometrics Height (Inches): 72.00 Height (Calculated Centimeters: 182.725469 Weight (Pounds): 167 Weight (Calculated Kilograms): 73.482 BMI: 22 Jerson Nutrition Score: Probably Inadequate Jerson Nutrition Risk Score: 17 Dietary Referral Nutrition Risk Factors: Unplanned Loss >10lbs Nutrition Risk Comment: 30 lb weight loss in 1 month Nutritional Diagnosis Nutritional Risk Acuity 1: TPN/PPN, GI Obstruction Nutritional Risk Acuity 2: Chronic Renal Failure Nutritional Risk Acuity 3: OR & > 80 yrs Nutritional Risk Acuity 4: %IBW 90-100% Past Medical History: Hx of ileostomy, chronic renal insufficiency, COPD, afib, prostate cancer, 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 Food/Eulalia Intake Nutrition Problem/Etiology/Sym: 10/30 Increased nutrient needs related to inadequate food/beverage intake as evidence by NPO diet day 2 Energy Requirement: 1828 Protein Requirement: 73 Fluid Requirement: 1828 Diet Type: NPO (Nothing by Mouth), TPN/PPN Nutrition Intervention: Incr diet as tolerated Nutritional Needs Comment: 10/30 pt is NPO for surgery, will monitor intake when pt is no longer NPO 11/03 pt is still NPO but is also receiving TPN Nutritional Support Current Enteral / Parental: TPN Rate: 63ml clinimix 5%AA, 20% dextrose + 500 lipids Current Duration: 24 Current Calories: 1330 Current Protein: 76 Current Lipids Calories: 500 Total Current Calories: 1830 Nutrition Monitoring & Eval Nutritional Goals Comment: TPN will meet nutr needs until oral intake can meet needs. RD Patient Assessment Time: [address] Assessment Type: RD Re-Assessment Patient Nutrition Acuity: 1-High Follow Up Date: Nov 04, 2018 Nutritional Comment: 10/30 Pt admitted with GI problems. 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 Pt dx with small bowel obstruction, Parastoma Hernia, T2DM, CHF, a-fib, Chronic Renal Failure, and UTI. Pt is currently NPO with a nasogastric tube to help remove the blockage before hernia surgery. Pt was taken off Warfarin to thicken blood before surgery, but will continue after surgery. Pt has elevated Creatinine (2.5), BUN (50), K+ (5.2), and RG (155), Hgb (12.4), Hct (36.6), Na (136), and CO2 (19) are all low. Pt will be monitored on the ADA diet after surgery for adequate intake. CD 11/01/18 Pt now has UTI. Pt on a multivitamin and insulin. Whole blood glucose has ranged from 100-118, BUN is elevated at 40 and creatinine of 2.30 is elevated. Pt has non-pitting edema in both feet. Notes from nursing report a 30# wt loss in 1 month. Pt diet changed from NPO to TPN. 76.2mL/hr for 24 hours will meet 100% of kcal needs. Recommend to start at 15.2mL/hr until tolerance has been established. Monitor for tolerence of TPN. -AK 11/02/18 Pt on 83mL/hr of TPN, which is meeting needs. Pt BUN increased to 45, while creatinine decreased to 1.90. Albumin remains low at 3.4. Pt taking heparin and insulin. Pt has non-pitting edema in both feet. MD note states pt feels better. Monitor for tolerance of TPN. -AKG 11/03 Pt is on a TPN of 63mL/hr of clinmix, 5/20, and 250mL of lipids. This meets the pt protein needs, but not his lipid and caloric needs. Recommend increasing the lipids to 500mL as pt can tollerate it to meet pt nutritioinal needs. Pt BUN is steady at 45 and his creatinine has decreased to 1.7, but these are still both high. Pt albumin is still low at 3.4. Pt has a whole blood glucose ranging from 90-112 in the past 24 hours, but pt is receiving insulin to help control pt high levels. Pt is on heparin, so K+ does not need to be monitored. Will continue to monitor pt as they progress to a solid food diet. Pt could benefit being placed on the ADA diet to help control his blood glucose levels once he starts consuming solid foods. CD 11/04 Pt is meeting 100% of needs though TPN. Blood glucose is still running high WBG 134 and RBG 147, but is on insulin to help regulate. Will continue to monitor pt while on TPN and while progressing to a PO diet. CD 11/05 pt cont on TPN which is meeting nutr needs. cont to monitor. CHAUNCEY JOYNER Nov 05, 2018 10:45
[2018-11-05] MEDS: INSULIN HUM LISPRO 100 UN/ML 3 ML VIAL SUBQ PRN ×2 (12:33→18:23)
[2018-11-05] MEDS: FAT EMULSION 20% 250 ML BAG 250 ML IVPB SCH (15:42)
--- NOTE | 2018-11-05 16:15 | NUR ---
Physical Therapy Impression Pt very agreeable to ambulate in hallway and requesting to go longer distances. Pt requires cues to ambulate closer to FWW and improve posture. At alf point of ambulation pt's HR increased to 120bpm. Nursing requested pt to take a sitting rest break and HR decreased to 110bpm. Pt does have a-fib but was not symptomatic during this episode. Pt ambulated back to room without incident. Physical Therapy Goals 1. Pt to ambulate x50' with RW, CGA. 2. Pt to ascend/descend 3 stairs with railing. 3. Pt to perform transfers and bed mobility Matheus and SBA. Patient's Goals
[2018-11-06] VITALS (21 sets, daily range): BP systolic 90–133; BP diastolic 57–87
[2018-11-06] MEDS: METOPROLOL TART 5 MG/5 ML VIAL IVP SCH ×6 (00:24→21:09)
[2018-11-06] MEDS: 1: INSULIN HUM REG 100 UN/ML 3 ML 10 UNIT, MULTIVITAMINS(*) 10 ML VIAL 10 ML, TRACE META IV SCH ×2 (00:26→21:21)
[2018-11-06] MEDS: LR(*) 1000 ML BAG 1,000 ML IV PRN ×2 (00:26→22:43)
[2018-11-06] MEDS: INSULIN HUM LISPRO 100 UN/ML 3 ML VIAL SUBQ PRN ×2 (00:41→18:59)
--- NOTE | 2018-11-06 06:56 | RADIOLOGY IMAGING REPORT ---
FAC[place] [facility] [place]IENT NAME: Trever Shen : 1935 MR: [id number] V: [id number] EXAM DATE: ORDERING PHYSICIAN: SUNI BENJAMIN TECHNOLOGIST: Location: [facility] Patient: Trever Shen : 1935 Visit/Account:[id number] Date of Sevice: 11/06/2018 KUB SINGLE VIEW ABDOMEN HISTORY: Small bowel obstruction. Follow-up. COMPARISON: 11/05/2018 and studies dating to 12/05/2013. FINDINGS: A single AP supine view of the abdomen was obtained. There is a right lower quadrant ostomy. There are persistently dilated small bowel loops, not appreci ably changed in size or number. No free air. NG or OG tube terminates in the distal stomach. There are surgical clips the right upper quadrant fro m cholecystectomy. There is a Jones catheter. There are pelvic phleboliths. There is degenerative remigio nge of the spine. IMPRESSION: 1. No significant change in the number or degree of distention of the dilated small bowel loops. 2. Tubes and lines as above. Report Dictated By: Meg Booker at 11/06/2018 6:50 AM Report E-Signed By: Meg Booker at 11/06/2018 6:51 AM WSN:[id number]
--- NOTE | 2018-11-06 07:30 | General Surgery Progress Note ---
Subjective Progress Notes Subjective No complaints. No pain. Increased stoma output overnight, almost 1 L in last 24 hours. Physical Exam Vital Signs Date Time Temp Pulse Resp B/P (MAP) Pulse Ox O2 Delivery O2 Flow Rate FiO2 11/06/18 02:58 97.6 100 20 132/85 (101) 96 Nasal Cannula 1.0 Intake and Output 11/06/18 07:00 Intake Total 4174.1 ml Output Total 2880 ml Balance 1294.1 ml IV Total 4174.1 ml Output Urine Total 800 ml Stool Total 980 ml Gastric Drainage Total 1100 ml General Appearance: Alert, Awake, No Acute Distress, Afebrile GI: Soft and Non-Tender Extremities: Warm, Perfused Result Diagram: 11/05/1853211/05/18532 Assessment and Plan Problems: (1) Small bowel obstruction Status: Acute Assessment & Plan: 10/29/18: Admit to surgical service, IV fluids, bowel rest, NG tube decompression, reverse anticoagulation as abdominal exam is relatively benign with high likelihood of needing surgical repair of his parastomal hernia tomorrow unless the obstruction resolves overnight. We'll ask the hospitalist service to consult given this patient's many comorbidities to help manage his a- fib, CHF, renal insufficiency, etc. Will spend tonight reversing his anticoagulation and optimizing him for surgical intervention with plans for surgery tomorrow if things do not improve overnight. I have explained this plan to the patient in detail and he seems to understand and seems to agree with this plan. 10/30/18: Doing better. Labs pending still this morning. Hospitalist is working on rate control today, they would like improved control prior to surgery. I will add him on to the OR schedule to follow my elective surgeries this evening for open parastomal hernia repair and if rate not controlled or other contraindications to surgery arise during the day then will cancel surgery and see how he is medically tomorrow. His abdominal exam is benign this morning but still with SBO without any stoma activity since admission yesterday. Continue bowel rest, NG tube decompression, IV fluids today. Hold on lovenox as he's still under influence of warfarin and will want his coagulopathy reversed before surgery. PPI for GI prophylaxis. Abx for UTI. 10/31/18: Seems to be doing better but still with poor stoma output. Will get SBFT (water-soluble) today. If fails to open up, will require surgical exploration in the next day or two. Continue PPI, hold on lovenox for now. A- fib rate control seems to be better controlled. 11/01/18: Feeling better, stoma has started to put out with over 400 ml this am thus far. Will start clamping NG for 4 hours and then unclamping and repeat. SBFT showed no definitive point of obstruction. Abdomen remains benign. Labs okay. Will get him up and ambulating with assistance. Okay to resume Lovenox. Discussed with hospitalist and they will start PPN. Recheck labs and F/U abdomen radiographs in am. 11/02/18: Tolerated clamping NGT x 4 h and unclamping for 4 h. Stoma output increasing. Remains pain free. Will increase clamping trial to 8 hours clamped and unclamp x 2h. Continue PPN. Encouraged to continue ambulating. On Heparin for VTE chemoprophylaxis. If tolerating clamping today will plan to remove NGT tomorrow am and then start clear liquids. 11/03/18: Tolerating clamp trials but not much ileostomy output and I connected NG tube to suction and removed about 150cc bilious drainage. Not convinced the obstruction is totally resolved based on ileostomy output and KUB yesterday. Will repeat KUB this morning and if still with dilated small bowel and air fluid levels will have PICC line placed and convert PPN to TPN. Will continue NG tube clamp trials and if SBO is not absolutely resolved over the next day or two, will proceed with surgery. If doing better then will remove NG tube and slowly advance diet and see how he does. I have explained this plan to the patient and he seems to understand and he seems agreeable with this plan. 11/04/18: SBO not resolving. Will continue clamp trials. If not resolved in 2 days then will proceed with surgical exploration. Continue TPN. CCM. 11/05/18: Improved stoma output today. If persists will remove NG tube and start feeding him. If stoma output stops again will proceed with surgical exploration tomorrow. Continue NG clamp trials and TPN. 11/06/18: SBO seems to be opening up although KUB still with dilated loops of small bowel and still with significant NG tube output. Will consider endoscopy through stoma to see if I can get into intra-abdominal intestine and if not then proceed with ileostomy revision, possible ex-lap with MAK, possible removal of parastomal hernia mesh. Pt seems agreeable with this plan. 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 (10) Urinary tract infection Status: Resolved Assessment & Plan: ABX Last UA with culture negative for infection. Condition Stable. Time Spent: < 30 min Exam Sepsis Risk: No Definite Risk Problem Qualifiers (1) Parastomal hernia: Obstruction and gangrene presence: with obstruction but without gangrene Qualified Codes: K43.3 - Parastomal hernia with obstruction, without gangrene (2) Chronic heart failure: Heart failure type: unspecified Qualified Codes: I50.9 - Heart failure, unspecified (3) Afib: Atrial fibrillation type: chronic Qualified Codes: I48.2 - Chronic atrial fibrillation (4) Chronic renal failure: Chronic kidney disease stage: unspecified stage Qualified Codes: N18.9 - Chronic kidney disease, unspecified (5) Urinary tract infection: Urinary tract infection type: acute cystitis Hematuria presence: without hematuria Qualified Codes: N30.00 - Acute cystitis without hematuria SUNI BENJAMIN MD Nov 06, 2018 07:29
[2018-11-06] MEDS ORDERED: NORMOSOL R SOLN(*) 1000 ML BAG 1,000 ML IV ONE ×3 (09:55→12:09)
[2018-11-06] MEDS ORDERED: LIDOCAINE MPF 1% 5 ML VIAL ONE (10:05)
[2018-11-06] MEDS ORDERED: ROCURONIUM BROM 10 MG/ML 10 ML ONE (10:05)
[2018-11-06] MEDS ORDERED: SUGAMMADEX SOD 200 MG/2 ML SDV ONE (10:05)
[2018-11-06] MEDS ORDERED: PROPOFOL EMUL(*) 10MG/ML 20 ML 20 ML ONE (10:05)
[2018-11-06] MEDS ORDERED: ONDANSETRON 4 MG/2 ML VIAL ONE (10:05)
[2018-11-06] MEDS ORDERED: DEXAMETHASONE SOD 4 MG/ML VIAL ONE (10:05)
[2018-11-06] MEDS ORDERED: fentaNYL CITR 250 MCG/5 ML AMP ONE (10:05)
--- NOTE | 2018-11-06 10:12 | NUR ---
Protonix 0900 dose given to Augusto (pre-op RN) to give in pre-op at 1000.
[2018-11-06] MEDS: PANTOPRAZOLE SOD 40 MG IV VIAL IVP SCH (10:31)
[2018-11-06] MEDS ORDERED: AMPICILLIN/SULBACT (*) 3 GM VL 3 GM in NS(*) 0.9% 100 ML MINI-BAG 100 ML IVPB ONE (10:40)
[2018-11-06] MEDS ORDERED: MIDAZOLAM 2 MG/2 ML VIAL IVP PRN (10:40)
--- NOTE | 2018-11-06 11:56 | Hospitalist Progress Note ---
Subjective Progress Notes Subjective 83M admitted for SBO. ESTEBAN overnight, increased output from ostomy. Plan for scope evaluation of ostomy today. Physical Exam Vital Signs Date Time Temp Pulse Resp B/P (MAP) Pulse Ox O2 Delivery O2 Flow Rate FiO2 11/06/18 07:48 100 11/06/18 07:41 97.7 96 12 130/76 (94) Room Air 97 11/06/18 02:58 1.0 Intake and Output 11/06/18 07:00 Intake Total 4174.1 ml Output Total 2880 ml Balance 1294.1 ml IV Total 4174.1 ml Output Urine Total 800 ml Stool Total 980 ml Gastric Drainage Total 1100 ml General Appearance: Awake, No Acute Distress Neuro: No Gross deficits Cardiovascular: Other (irregularly irregular) GI: Soft and Non-Tender Extremities: Soft and Non Tender, Warm, Pulses, Perfused Integumentary: Skin Intact without Lesion / Mass Result Diagram: 11/05/1853211/05/18532 Assessment and Plan Problems: (1) Afib Status: Chronic Assessment & Plan: He is on chronic treatment with diltiazem and warfarin. He is currently NPO and is receiving metoprolol for rate control. Warfarin has been held and he is on "mini-heparin". Will restart warfarin when begins taking PO and diet advances. (2) Urinary tract infection Status: Resolved Assessment & Plan: He does self catheter at home. His urine was positive for nitrite and leukocytes, but he is afebrile and his WBC is normal. He was started on ceftriaxone empirically and also received a dose of vancomycin. He did develop a rash after receiving the vancomycin. His urine culture did grow Enterobacter cloacae which was sensitive to Rocephin. Completed 3 day course of Rocephin. Now growing yeast from most recent culture, but is asymptomatic. (3) Acute on chronic renal failure Status: Acute Assessment & Plan: His creatinine has improved with IV fluids and appears to be better than his baseline (creatinine of 2.0-2.2) (4) Prostate cancer metastatic to multiple sites Status: Chronic Assessment & Plan: He has had previous radiation therapy. (5) Diabetes mellitus type 2, diet-controlled Status: Chronic Assessment & Plan: He is on sliding scale level #1. BS have been well controlled. Exam Sepsis Risk: No Definite Risk Problem Qualifiers (1) Afib: Atrial fibrillation type: chronic Qualified Codes: I48.2 - Chronic atrial fibrillation (2) Urinary tract infection: Urinary tract infection type: acute cystitis Hematuria presence: without hematuria Qualified Codes: N30.00 - Acute cystitis without hematuria CAT COLLIER DO Nov 06, 2018 11:56
--- NOTE | 2018-11-06 12:06 | Post Operative Progress Note ---
Post Operative Progress Note Date: Nov 06, 2018 Time: 11:56 Surgeon: Bethany Dictation number: [id number] Anesthesia: GETA by Dr. Saab Pre-Op Diagnosis: SBO Parastomal hernia Post-Op Diagnosis: DAPHNIE Findings: Stoma is open, scope passed into intraabdominal small bowel without problems. Procedure(s): Enteroscopy through stoma Specimen Removed:(May be N/A): None Complications: None Fluids: See anesthesia record Estimated Blood Loss: None Date OP Note Dictated: Nov 06, 2018 Time OP Note Dictated: 11:58 SUNI BENJAMIN MD Nov 06, 2018 12:06
--- NOTE | 2018-11-06 12:13 | Medical Nutrition Therapy ---
Nutrition Anthropometrics Height (Inches): 72.00 Height (Calculated Centimeters: 182.193413 Weight (Pounds): 159 Weight (Calculated Kilograms): 72.121 BMI: 22 Jerson Nutrition Score: Probably Inadequate Jerson Nutrition Risk Score: 17 Dietary Referral Nutrition Risk Factors: Unplanned Loss >10lbs Nutrition Risk Comment: 30 lb weight loss in 1 month Nutritional Diagnosis Nutritional Risk Acuity 1: TPN/PPN, GI Obstruction Nutritional Risk Acuity 2: Chronic Renal Failure Nutritional Risk Acuity 3: OR & > 80 yrs Nutritional Risk Acuity 4: %IBW 90-100% Past Medical History: Hx of ileostomy, chronic renal insufficiency, COPD, afib, prostate cancer, 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 Food/Eulalia Intake Nutrition Problem/Etiology/Sym: 10/30 Increased nutrient needs related to inadequate food/beverage intake as evidence by NPO diet day 2 Energy Requirement: 8 Protein Requirement: 73 Fluid Requirement: 8 Diet Type: NPO (Nothing by Mouth), TPN/PPN Nutrition Intervention: Incr diet as tolerated Nutritional Needs Comment: 10/30 pt is NPO for surgery, will monitor intake when pt is no longer NPO 11/03 pt is still NPO but is also receiving TPN Nutritional Support Current Enteral / Parental: TPN Rate: 63ml clinimix 5%AA, 20% dextrose + 500 lipids Current Duration: 24 Current Calories: 1330 Current Protein: 76 Current Lipids Calories: 500 Total Current Calories: 1830 Nutrition Monitoring & Eval Nutritional Goals Comment: TPN will meet nutr needs until oral intake can meet needs RD Patient Assessment Time: [address] Assessment Type: RD Re-Assessment Patient Nutrition Acuity: 1-High Follow Up Date: Nov 09, 2018 Nutritional Comment: 10/30 Pt admitted with GI problems. 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 Pt dx with small bowel obstruction, Parastoma Hernia, T2DM, CHF, a-fib, Chronic Renal Failure, and UTI. Pt is currently NPO with a nasogastric tube to help remove the blockage before hernia surgery. Pt was taken off Warfarin to thicken blood before surgery, but will continue after surgery. Pt has elevated Creatinine (2.5), BUN (50), K+ (5.2), and RG (155), Hgb (12.4), Hct (36.6), Na (136), and CO2 (19) are all low. Pt will be monitored on the ADA diet after surgery for adequate intake. CD 11/01/18 Pt now has UTI. Pt on a multivitamin and insulin. Whole blood glucose has ranged from 100-118, BUN is elevated at 40 and creatinine of 2.30 is elevated. Pt has non-pitting edema in both feet. Notes from nursing report a 30# wt loss in 1 month. Pt diet changed from NPO to TPN. 76.2mL/hr for 24 hours will meet 100% of kcal needs. Recommend to start at 15.2mL/hr until tolerance has been established. Monitor for tolerence of TPN. -AKG 11/02/18 Pt on 83mL/hr of TPN, which is meeting needs. Pt BUN increased to 45, while creatinine decreased to 1.90. Albumin remains low at 3.4. Pt taking heparin and insulin. Pt has non-pitting edema in both feet. MD note states pt feels better. Monitor for tolerance of TPN. -AK 11/03 Pt is on a TPN of 63mL/hr of clinmix, 5/20, and 250mL of lipids. This meets the pt protein needs, but not his lipid and caloric needs. Recommend increasing the lipids to 500mL as pt can tollerate it to meet pt nutritioinal needs. Pt BUN is steady at 45 and his creatinine has decreased to 1.7, but these are still both high. Pt albumin is still low at 3.4. Pt has a whole blood glucose ranging from 90-112 in the past 24 hours, but pt is receiving insulin to help control pt high levels. Pt is on heparin, so K+ does not need to be monitored. Will continue to monitor pt as they progress to a solid food diet. Pt could benefit being placed on the ADA diet to help control his blood glucose levels once he starts consuming solid foods. CD 11/04 Pt is meeting 100% of needs though TPN. Blood glucose is still running high WBG 134 and RBG 147, but is on insulin to help regulate. Will continue to monitor pt while on TPN and while progressing to a PO diet. CD 11/05 pt cont on TPN which is meeting nutr needs. cont to monitor. BK 11/06 Pt cont on TPN with hypoactive bowel sounds. Alb 3.4, BG 99-159. Wt stable. Will cont to monitor. CHAUNCEY JOYNER Nov 06, 2018 12:13
--- NOTE | 2018-11-06 12:45 | OPERATIVE REPORT 1 ---
EVENT DATE: November 06, 2018 SURGEON: Bj Sims MD ANESTHESIOLOGIST: Jose Manuel Thomas MD ANESTHESIA: General endotracheal anesthesia, in anticipation of surgical exploration. PREOPERATIVE DIAGNOSES 1. Small bowel obstruction. 2. Parastomal hernia. POSTOPERATIVE DIAGNOSES 1. Small bowel obstruction. 2. Parastomal hernia. PROCEDURE PERFORMED Enteroscopy through ileostomy. COMPLICATIONS None. CONDITION Stable. FINDINGS I was able to pass the scope without any difficulty into the main part of the small intestines; that is, the intra-abdominal portion of the small intestines below the fascia. I can see the level of the fascia and I was able to pass the scope through this with no problems. I was able to pass a 45-Togolese dilator without any problems either. INDICATIONS Patient is an 83-year old gentleman who has a history of ulcerative colitis, treated with total colectomy and end ileostomy approximately 13 years ago. He developed parastomal hernia, which was repaired by Dr. Bueno with a keyhole type mesh, Ventralex mesh with a keyhole cut into it, five years ago. A day or two before his hospital admission he started developing increasing nausea, vomiting and abdominal pain. I admitted him and started conservative management and he has been showing intermittent signs of improved ileostomy output and I set him up for surgical exploration for today as a couple of days ago the output had really declined but then on the last 24 hours his ileostomy output has been greater than a liter and his NG output has been decreasing and he has had no abdominal pain. With that in mind, I consented him for an enteroscopy with endoscope to inspect the ileostomy as well as to see if I could get the scope into the main part of the subfascial, intra-abdominal intestines. If I could not then I would proceed with an ileostomy revision, mesh removal, etc. He was agreeable with this plan. DESCRIPTION OF PROCEDURE Patient was brought into the operating room and placed supine on the operating table. General endotracheal was administered and the stoma bag was removed. I then lubricated the upper endoscope and inserted into the ileostomy and was able to advance into the subfascial/intraperitoneal bowel without any problems. I slowly backed the scope out and looked at all mucosal surfaces and I could see the area of the fascia and it was a little more narrow than the rest, where I presume the mesh that Dr. Bueno had placed five years ago was located but there was no stricture and no obvious obstruction today. I did just to prove that I could pass a sequence of dilators and started with a 32 and then a 39- Togolese and then a 45-Togolese dilator over a wire and these all passed without any problems. I then re-inserted the scope and inspected the area and it looked about the same so I removed the endoscope from the patient and placed the stoma bag back on and he was awakened, extubated and transported to the recovery room in stable condition, having tolerated the procedure without any apparent problems. We will continue with conservative management and hopefully be able to advance his diet over the next day or two but if his symptom persists or signs of obstruction recur then we will have to proceed with surgical exploration. TERESA
[2018-11-06] MEDS: HEPARIN (PORC) 5000 UN/ML VIAL SC SCH ×2 (13:28→21:07)
[2018-11-06] MEDS: CLOTRIMAZOLE 1% CR 30 GM TUBE TP SCH ×2 (13:29→21:07)
--- NOTE | 2018-11-06 16:00 | NUR ---
Physical Therapy Impression Pt underwent surgical procedure earlier today and was not available for therapy. At this time, pt in R) sidelying position upon PT arrival and noticeably uncomfortable. Nursing notified and address NG tube suction. Pt not medically appropriate to ambulate at this time. PT will attempt again tomorrow. Physical Therapy Goals 1. Pt to ambulate x50' with RW, CGA. 2. Pt to ascend/descend 3 stairs with railing. 3. Pt to perform transfers and bed mobility Matheus and SBA. Patient's Goals
--- NOTE | 2018-11-06 16:00 | NUR ---
Physical Therapy Impression Pt in R) sidelying position upon PT arrival and noticeably uncomfortable. Nursing notified and address NG tube suction. Pt not medically appropriate to ambulate at this time. PT will attempt again tomorrow. Physical Therapy Goals 1. Pt to ambulate x50' with RW, CGA. 2. Pt to ascend/descend 3 stairs with railing. 3. Pt to perform transfers and bed mobility Matheus and SBA. Patient's Goals
[2018-11-06] MEDS: FAT EMULSION 20% 250 ML BAG 250 ML IVPB SCH (16:48)
[2018-11-07] MEDS: METOPROLOL TART 5 MG/5 ML VIAL IVP SCH ×6 (00:26→21:30)
[2018-11-07] MEDS: INSULIN HUM LISPRO 100 UN/ML 3 ML VIAL SUBQ PRN ×4 (00:32→17:24)
[2018-11-07 03:14] VITALS: BP 115/91
[2018-11-07 05:45] LABS: PLATELET COUNT, AUTOMATED 134 K/uL (150-450)
[2018-11-07 07:33] VITALS: BP 128/73
[2018-11-07] MEDS ORDERED: LR(*) 1000 ML BAG 1,000 ML IV PRN (08:12)
--- NOTE | 2018-11-07 08:16 | General Surgery Progress Note ---
Subjective Progress Notes Subjective No complaints this morning. Physical Exam Vital Signs Date Time Temp Pulse Resp B/P (MAP) Pulse Ox O2 Delivery O2 Flow Rate FiO2 11/07/18 07:33 97.8 96 14 128/73 (91) 97 Room Air 11/06/18 13:10 2.0 Intake and Output 11/07/18 07:00 Intake Total 3960 ml Output Total 2205 ml Balance 1755 ml IV Total 3960 ml Output Urine Total 800 ml Stool Total 855 ml Gastric Drainage Total 450 ml Other 100 ml # Bowel Movements 2 General Appearance: Alert, Awake, No Acute Distress, Afebrile GI: Soft and Non-Tender, Other (Not much out of NG tube when I connected it to suction after 10 hours clamped. Ileostomy bag with gas and liquid bilious stool in the bag.) Extremities: Warm, Perfused Result Diagram: 11/07/1836 11/07/18535 Assessment and Plan Problems: (1) Small bowel obstruction Status: Acute Assessment & Plan: 10/29/18: Admit to surgical service, IV fluids, bowel rest, NG tube decompression, reverse anticoagulation as abdominal exam is relatively benign with high likelihood of needing surgical repair of his parastomal hernia tomorrow unless the obstruction resolves overnight. We'll ask the hospitalist service to consult given this patient's many comorbidities to help manage his a- fib, CHF, renal insufficiency, etc. Will spend tonight reversing his anticoagulation and optimizing him for surgical intervention with plans for surgery tomorrow if things do not improve overnight. I have explained this plan to the patient in detail and he seems to understand and seems to agree with this plan. 10/30/18: Doing better. Labs pending still this morning. Hospitalist is working on rate control today, they would like improved control prior to surgery. I will add him on to the OR schedule to follow my elective surgeries this evening for open parastomal hernia repair and if rate not controlled or other contraindications to surgery arise during the day then will cancel surgery and see how he is medically tomorrow. His abdominal exam is benign this morning but still with SBO without any stoma activity since admission yesterday. Continue bowel rest, NG tube decompression, IV fluids today. Hold on lovenox as he's still under influence of warfarin and will want his coagulopathy reversed before surgery. PPI for GI prophylaxis. Abx for UTI. 10/31/18: Seems to be doing better but still with poor stoma output. Will get SBFT (water-soluble) today. If fails to open up, will require surgical exploration in the next day or two. Continue PPI, hold on lovenox for now. A- fib rate control seems to be better controlled. 11/01/18: Feeling better, stoma has started to put out with over 400 ml this am thus far. Will start clamping NG for 4 hours and then unclamping and repeat. SBFT showed no definitive point of obstruction. Abdomen remains benign. Labs okay. Will get him up and ambulating with assistance. Okay to resume Lovenox. Discussed with hospitalist and they will start PPN. Recheck labs and F/U abdomen radiographs in am. 11/02/18: Tolerated clamping NGT x 4 h and unclamping for 4 h. Stoma output increasing. Remains pain free. Will increase clamping trial to 8 hours clamped and unclamp x 2h. Continue PPN. Encouraged to continue ambulating. On Heparin for VTE chemoprophylaxis. If tolerating clamping today will plan to remove NGT tomorrow am and then start clear liquids. 11/03/18: Tolerating clamp trials but not much ileostomy output and I connected NG tube to suction and removed about 150cc bilious drainage. Not convinced the obstruction is totally resolved based on ileostomy output and KUB yesterday. Will repeat KUB this morning and if still with dilated small bowel and air fluid levels will have PICC line placed and convert PPN to TPN. Will continue NG tube clamp trials and if SBO is not absolutely resolved over the next day or two, will proceed with surgery. If doing better then will remove NG tube and slowly advance diet and see how he does. I have explained this plan to the patient and he seems to understand and he seems agreeable with this plan. 11/04/18: SBO not resolving. Will continue clamp trials. If not resolved in 2 days then will proceed with surgical exploration. Continue TPN. CCM. 11/05/18: Improved stoma output today. If persists will remove NG tube and start feeding him. If stoma output stops again will proceed with surgical exploration tomorrow. Continue NG clamp trials and TPN. 11/06/18: SBO seems to be opening up although KUB still with dilated loops of small bowel and still with significant NG tube output. Will consider endoscopy through stoma to see if I can get into intra-abdominal intestine and if not then proceed with ileostomy revision, possible ex-lap with MAK, possible removal of parastomal hernia mesh. Pt seems agreeable with this plan. 11/07/18: SBO continuing to improve with improved ileostomy output. Able to intubate subfascial/intraabdominal small bowel through stoma without any problems. Will remove NG tube today and start clear diet today. Will advance diet as tolerated over the weekend. Continue TPN until tolerating regular diet. CCM. 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 (10) Urinary tract infection Status: Resolved Assessment & Plan: ABX Last UA with culture negative for infection. Condition Stable. Time Spent: < 30 min Exam Sepsis Risk: No Definite Risk Problem Qualifiers (1) Parastomal hernia: Obstruction and gangrene presence: with obstruction but without gangrene Qualified Codes: K43.3 - Parastomal hernia with obstruction, without gangrene (2) Chronic heart failure: Heart failure type: unspecified Qualified Codes: I50.9 - Heart failure, unspecified (3) Afib: Atrial fibrillation type: chronic Qualified Codes: I48.2 - Chronic atrial fibrillation (4) Chronic renal failure: Chronic kidney disease stage: unspecified stage Qualified Codes: N18.9 - Chronic kidney disease, unspecified (5) Urinary tract infection: Urinary tract infection type: acute cystitis Hematuria presence: without hematuria Qualified Codes: N30.00 - Acute cystitis without hematuria SUNI BENJAMIN MD Nov 07, 2018 08:16
[2018-11-07] MEDS: HEPARIN (PORC) 5000 UN/ML VIAL SC SCH ×2 (08:24→21:29)
[2018-11-07] MEDS: PANTOPRAZOLE SOD 40 MG IV VIAL IVP SCH (08:24)
--- NOTE | 2018-11-07 11:21 | Hospitalist Progress Note ---
Subjective Progress Notes Subjective Feeling better. Physical Exam Vital Signs Date Time Temp Pulse Resp B/P (MAP) Pulse Ox O2 Delivery O2 Flow Rate FiO2 11/07/18 07:33 97.8 96 14 128/73 (91) 97 Room Air 11/06/18 13:10 2.0 Intake and Output 11/07/18 07:00 Intake Total 3960 ml Output Total 2205 ml Balance 1755 ml IV Total 3960 ml Output Urine Total 800 ml Stool Total 855 ml Gastric Drainage Total 450 ml Other 100 ml # Bowel Movements 2 General Appearance: Alert, Awake, No Acute Distress, Other (NG tube out.) Neuro: No Gross deficits Cardiovascular: Regular Rate and Rhythm Respiratory: Clear to Auscultation GI: Soft and Non-Tender, Other (Ostomy bag in place R abdomen.) Extremities: Warm, Perfused Psych: Appropriate Mood & Affect Result Diagram: 11/07/1853511/07/18535 Assessment and Plan Problems: (1) Afib Status: Chronic Assessment & Plan: He is on chronic treatment with diltiazem and warfarin. He is currently NPO and is receiving metoprolol for rate control. Warfarin has been held and he is on "mini-heparin". Will restart warfarin when begins taking PO and diet advances. (2) Urinary tract infection Status: Resolved Assessment & Plan: He does self catheter at home. His urine was positive for nitrite and leukocytes, but he is afebrile and his WBC is normal. He was started on ceftriaxone empirically and also received a dose of vancomycin. He did develop a rash after receiving the vancomycin. His urine culture did grow Enterobacter cloacae which was sensitive to Rocephin. Completed 3 day course of Rocephin. Now growing yeast from most recent culture, but is asymptomatic. (3) Acute on chronic renal failure Status: Acute Assessment & Plan: His creatinine has improved with IV fluids and appears to be better than his baseline (creatinine of 2.0-2.2) (4) Prostate cancer metastatic to multiple sites Status: Chronic Assessment & Plan: He has had previous radiation therapy. (5) Diabetes mellitus type 2, diet-controlled Status: Chronic Assessment & Plan: He is on sliding scale level #1. BS have been well controlled. Time Spent on Plan of Care: < 30 min Exam Sepsis Risk: No Definite Risk Problem Qualifiers (1) Afib: Atrial fibrillation type: chronic Qualified Codes: I48.2 - Chronic atrial fibrillation (2) Urinary tract infection: Urinary tract infection type: acute cystitis Hematuria presence: without hematuria Qualified Codes: N30.00 - Acute cystitis without hematuria YON SCOTT MD Nov 07, 2018 11:21
[2018-11-07] MEDS: 1: INSULIN HUM REG 100 UN/ML 3 ML 10 UNIT, MULTIVITAMINS(*) 10 ML VIAL 10 ML, TRACE META IV SCH (12:11)
[2018-11-07] MEDS: CLOTRIMAZOLE 1% CR 30 GM TUBE TP SCH ×2 (12:15→21:30)
[2018-11-07 13:57] VITALS: BP 138/86
--- NOTE | 2018-11-07 14:10 | NUR ---
Physical Therapy Impression Pt has improved since procedure and is ambulating longer distances again. Pt would benefit from addressing stairs prior to potential d/c home when medically appropriate. Physical Therapy Goals 1. Pt to ambulate x50' with RW, CGA. 2. Pt to ascend/descend 3 stairs with railing. 3. Pt to perform transfers and bed mobility Matheus and SBA. Patient's Goals
[2018-11-07 16:14] VITALS: BP 134/83
[2018-11-07] MEDS: FAT EMULSION 20% 250 ML BAG 250 ML IVPB SCH (16:16)
[2018-11-07 19:12] VITALS: BP 141/87
[2018-11-08] VITALS (7 sets, daily range): BP systolic 109–133; BP diastolic 69–89
[2018-11-08] MEDS: METOPROLOL TART 5 MG/5 ML VIAL IVP SCH ×6 (01:00→21:26)
[2018-11-08] MEDS: INSULIN HUM LISPRO 100 UN/ML 3 ML VIAL SUBQ PRN (01:01)
[2018-11-08] MEDS: 1: INSULIN HUM REG 100 UN/ML 3 ML 10 UNIT, MULTIVITAMINS(*) 10 ML VIAL 10 ML, TRACE META IV SCH ×2 (05:28→22:04)
[2018-11-08 06:08] LABS: PLATELET COUNT, AUTOMATED 139 K/uL (150-450)
--- NOTE | 2018-11-08 08:59 | General Surgery Progress Note ---
Subjective Progress Notes Subjective feels fine. gagan clears. no pain. Physical Exam Vital Signs Date Time Temp Pulse Resp B/P (MAP) Pulse Ox O2 Delivery O2 Flow Rate FiO2 11/08/18 04:51 98.7 81 16 115/73 (87) 96 Room Air 11/06/18 13:10 2.0 Intake and Output 11/08/18 07:00 Intake Total 4452 ml Output Total 2425 ml Balance 2027 ml Intake Oral 990 ml IV Total 3462 ml Output Urine Total 1000 ml Stool Total 1425 ml General Appearance: No Acute Distress GI: Soft and Non-Tender, Other (good amount of ostomy output - output is watery) Result Diagram: 11/08/1852511/08/18525 Assessment and Plan Problems: (1) Small bowel obstruction Status: Acute Assessment & Plan: 10/29/18: Admit to surgical service, IV fluids, bowel rest, NG tube decompression, reverse anticoagulation as abdominal exam is relatively benign with high likelihood of needing surgical repair of his parastomal hernia tomorrow unless the obstruction resolves overnight. We'll ask the hospitalist service to consult given this patient's many comorbidities to help manage his a- fib, CHF, renal insufficiency, etc. Will spend tonight reversing his anticoagulation and optimizing him for surgical intervention with plans for surgery tomorrow if things do not improve overnight. I have explained this plan to the patient in detail and he seems to understand and seems to agree with this plan. 10/30/18: Doing better. Labs pending still this morning. Hospitalist is working on rate control today, they would like improved control prior to surgery . I will add him on to the OR schedule to follow my elective surgeries this evening for open parastomal hernia repair and if rate not controlled or other contraindications to surgery arise during the day then will cancel surgery and see how he is medically tomorrow. His abdominal exam is benign this morning but still with SBO without any stoma activity since admission yesterday. Continue bowel rest, NG tube decompression, IV fluids today. Hold on lovenox as he's still under influence of warfarin and will want his coagulopathy reversed before surgery. PPI for GI prophylaxis. Abx for UTI. 10/31/18: Seems to be doing better but still with poor stoma output. Will get SBFT (water-soluble) today. If fails to open up, will require surgical exploration in the next day or two. Continue PPI, hold on lovenox for now. A- fib rate control seems to be better controlled. 11/01/18: Feeling better, stoma has started to put out with over 400 ml this am thus far. Will start clamping NG for 4 hours and then unclamping and repeat. SBFT showed no definitive point of obstruction. Abdomen remains benign. Labs okay. Will get him up and ambulating with assistance. Okay to resume Lovenox. Discussed with hospitalist and they will start PPN. Recheck labs and F/U abdomen radiographs in am. 11/02/18: Tolerated clamping NGT x 4 h and unclamping for 4 h. Stoma output increasing. Remains pain free. Will increase clamping trial to 8 hours clamped and unclamp x 2h. Continue PPN. Encouraged to continue ambulating. On Heparin for VTE chemoprophylaxis. If tolerating clamping today will plan to remove NGT tomorrow am and then start clear liquids. 11/03/18: Tolerating clamp trials but not much ileostomy output and I connected NG tube to suction and removed about 150cc bilious drainage. Not convinced the obstruction is totally resolved based on ileostomy output and KUB yesterday. Will repeat KUB this morning and if still with dilated small bowel and air fluid levels will have PICC line placed and convert PPN to TPN. Will continue NG tube clamp trials and if SBO is not absolutely resolved over the next day or two, will proceed with surgery. If doing better then will remove NG tube and slowly advance diet and see how he does. I have explained this plan to the patient and he seems to understand and he seems agreeable with this plan. 11/04/18: SBO not resolving. Will continue clamp trials. If not resolved in 2 days then will proceed with surgical exploration. Continue TPN. CCM. 11/05/18: Improved stoma output today. If persists will remove NG tube and start feeding him. If stoma output stops again will proceed with surgical exploration tomorrow. Continue NG clamp trials and TPN. 11/06/18: SBO seems to be opening up although KUB still with dilated loops of small bowel and still with significant NG tube output. Will consider endoscopy through stoma to see if I can get into intra-abdominal intestine and if not then proceed with ileostomy revision, possible ex-lap with MAK, possible removal of parastomal hernia mesh. Pt seems agreeable with this plan. 11/07/18: SBO continuing to improve with improved ileostomy output. Able to intubate subfascial/intraabdominal small bowel through stoma without any problems. Will remove NG tube today and start clear diet today. Will advance diet as tolerated over the weekend. Continue TPN until tolerating regular diet. CCM. 11/08/18: sbo improving. will advance to full liquid diet this afternoon if he continues to do well. 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 (10) Urinary tract infection Status: Resolved Assessment & Plan: ABX Last UA with culture negative for infection. Exam Sepsis Risk: No Definite Risk Problem Qualifiers (1) Parastomal hernia: Obstruction and gangrene presence: with obstruction but without gangrene Qualified Codes: K43.3 - Parastomal hernia with obstruction, without gangrene (2) Chronic heart failure: Heart failure type: unspecified Qualified Codes: I50.9 - Heart failure, unspecified (3) Afib: Atrial fibrillation type: chronic Qualified Codes: I48.2 - Chronic atrial fibrillation (4) Chronic renal failure: Chronic kidney disease stage: unspecified stage Qualified Codes: N18.9 - Chronic kidney disease, unspecified (5) Urinary tract infection: Urinary tract infection type: acute cystitis Hematuria presence: without hematuria Qualified Codes: N30.00 - Acute cystitis without hematuria GABO SEGUNDO Nov 08, 2018 08:59
[2018-11-08] MEDS: CLOTRIMAZOLE 1% CR 30 GM TUBE TP SCH ×2 (09:40→21:26)
[2018-11-08] MEDS: PANTOPRAZOLE SOD 40 MG IV VIAL IVP SCH (09:41)
[2018-11-08] MEDS: HEPARIN (PORC) 5000 UN/ML VIAL SC SCH ×2 (09:42→21:24)
--- NOTE | 2018-11-08 09:47 | Medical Nutrition Therapy ---
Nutrition Anthropometrics Height (Inches): 72.00 Height (Calculated Centimeters: 182.534182 Weight (Pounds): 163 Weight (Calculated Kilograms): 73.936 BMI: 22 Jerson Nutrition Score: Adequate Jerson Nutrition Risk Score: 20 Dietary Referral Nutrition Risk Factors: Unplanned Loss >10lbs Nutrition Risk Comment: 30 lb weight loss in 1 month Nutritional Diagnosis Nutritional Risk Acuity 1: TPN/PPN, GI Obstruction Nutritional Risk Acuity 2: Chronic Renal Failure Nutritional Risk Acuity 3: OR & > 80 yrs Nutritional Risk Acuity 4: %IBW 90-100% Past Medical History: Hx of ileostomy, chronic renal insufficiency, COPD, afib, prostate cancer, 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 Food/Eulalia Intake Nutrition Problem/Etiology/Sym: 10/30 Increased nutrient needs related to inadequate food/beverage intake as evidence by NPO diet day 2 Energy Requirement: 1828 Protein Requirement: 73 Fluid Requirement: 1828 Diet Type: Clear Liquids, TPN/PPN Nutrition Intervention: Incr diet as tolerated Nutritional Support Current Enteral / Parental: TPN Rate: 63ml clinimix 5%AA, 20% dextrose + 500 lipids Current Duration: 24 Current Calories: 1330 Current Protein: 76 Current Lipids Calories: 500 Total Current Calories: 1830 Nutrition Monitoring & Eval RD Patient Assessment Time: [address] Assessment Type: RD Re-Assessment Patient Nutrition Acuity: 1-High Follow Up Date: Nov 10, 2018 Nutritional Comment: 10/30 Pt admitted with GI problems. 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 Pt dx with small bowel obstruction, Parastoma Hernia, T2DM, CHF, a-fib, Chronic Renal Failure, and UTI. Pt is currently NPO with a nasogastric tube to help remove the blockage before hernia surgery. Pt was taken off Warfarin to thicken blood before surgery, but will continue after surgery. Pt has elevated Creatinine (2.5), BUN (50), K+ (5.2), and RG (155), Hgb (12.4), Hct (36.6), Na (136), and CO2 (19) are all low. Pt will be monitored on the ADA diet after surgery for adequate intake. CD 11/01/18 Pt now has UTI. Pt on a multivitamin and insulin. Whole blood glucose has ranged from 100-118, BUN is elevated at 40 and creatinine of 2.30 is elevated. Pt has non-pitting edema in both feet. Notes from nursing report a 30# wt loss in 1 month. Pt diet changed from NPO to TPN. 76.2mL/hr for 24 hours will meet 100% of kcal needs. Recommend to start at 15.2mL/hr until tolerance has been established. Monitor for tolerence of TPN. -AKG 11/02/18 Pt on 83mL/hr of TPN, which is meeting needs. Pt BUN increased to 45, while creatinine decreased to 1.90. Albumin remains low at 3.4. Pt taking heparin and insulin. Pt has non-pitting edema in both feet. MD note states pt feels better. Monitor for tolerance of TPN. -AKG 11/03 Pt is on a TPN of 63mL/hr of clinmix, 5/20, and 250mL of lipids. This meets the pt protein needs, but not his lipid and caloric needs. Recommend increasing the lipids to 500mL as pt can tollerate it to meet pt nutritioinal needs. Pt BUN is steady at 45 and his creatinine has decreased to 1.7, but these are still both high. Pt albumin is still low at 3.4. Pt has a whole blood glucose ranging from 90-112 in the past 24 hours, but pt is receiving insulin to help control pt high levels. Pt is on heparin, so K+ does not need to be monitored. Will continue to monitor pt as they progress to a solid food diet. Pt could benefit being placed on the ADA diet to help control his blood glucose levels once he starts consuming solid foods. CD 11/04 Pt is meeting 100% of needs though TPN. Blood glucose is still running high WBG 134 and RBG 147, but is on insulin to help regulate. Will continue to monitor pt while on TPN and while progressing to a PO diet. CD 11/05 pt cont on TPN which is meeting nutr needs. cont to monitor. BK 11/06 Pt cont on TPN with hypoactive bowel sounds. Alb 3.4, BG 99-159. Wt stable. Will cont to monitor. REVA 11/08 Diet advanced to clear liquid. reporting will cont on TPN until tolerating regular diet and will advance to full liquid possibly this afternoon. Pt drank 75% of clear liquid diet. Alb 2.7, BUN cont elevated at 37 but has improved. Cratinine cont elevted at 1.5 but has improved. Will cont to monitor. CHAUNCEY JOYNER Nov 08, 2018 09:47
--- NOTE | 2018-11-08 10:19 | Hospitalist Progress Note ---
Subjective Progress Notes Subjective This patient was admitted for a bowel obstruction. He had no acute events overnight. Patient Complains of: Cardiovascular: No: Chest Pain Respiratory: No: Shortness of Breath Physical Exam Vital Signs Date Time Temp Pulse Resp B/P (MAP) Pulse Ox O2 Delivery O2 Flow Rate FiO2 11/08/18 04:51 98.7 81 16 115/73 (87) 96 Room Air 11/06/18 13:10 2.0 Intake and Output 11/08/18 07:00 Intake Total 4572 ml Output Total 2425 ml Balance 2147 ml Intake Oral 1110 ml IV Total 3462 ml Output Urine Total 1000 ml Stool Total 1425 ml Cardiovascular: Regular Rate and Rhythm Respiratory: Clear to Auscultation Result Diagram: 11/08/1852511/08/18525 Assessment and Plan Problems: (1) Afib Status: Chronic Assessment & Plan: He is on chronic treatment with diltiazem and warfarin. He is currently NPO and is receiving metoprolol for rate control. Warfarin has been held and he is on "mini-heparin". Will restart warfarin when begins taking PO and diet advances. (2) Urinary tract infection Status: Resolved Assessment & Plan: He does self catheter at home. His urine was positive for nitrite and leukocytes, but he is afebrile and his WBC is normal. He was started on ceftriaxone empirically and also received a dose of vancomycin. He did develop a rash after receiving the vancomycin. His urine culture did grow Enterobacter cloacae which was sensitive to Rocephin. Completed 3 day course of Rocephin. Now growing yeast from most recent culture, but is asymptomatic. (3) Acute on chronic renal failure Status: Acute Assessment & Plan: His creatinine has improved with IV fluids and appears to be better than his baseline (creatinine of 2.0-2.2) (4) Prostate cancer metastatic to multiple sites Status: Chronic Assessment & Plan: He has had previous radiation therapy. (5) Diabetes mellitus type 2, diet-controlled Status: Chronic Assessment & Plan: He is on sliding scale level #1. BS have been well controlled. Exam Sepsis Risk: No Definite Risk Problem Qualifiers (1) Afib: Atrial fibrillation type: chronic Qualified Codes: I48.2 - Chronic atrial fibrillation (2) Urinary tract infection: Urinary tract infection type: acute cystitis Hematuria presence: without hematuria Qualified Codes: N30.00 - Acute cystitis without hematuria SUNI WATERMAN DO Nov 08, 2018 10:18
--- NOTE | 2018-11-08 10:53 | NUR ---
Physical Therapy Impression Pt progressing well. Thiago for bed mobiltiy and transfers with RW. Ambulation x450' with RW and SBA with verbal cues on occasion, pt with a few instances of stepping outside of walker. PT instruction to asc/desc 3 stairs with railing, pt completed with CGA and good tolerance overall. REc [facility] at d/c. Physical Therapy Goals 1. Pt to ambulate x50' with RW, CGA. 2. Pt to ascend/descend 3 stairs with railing. 3. Pt to perform transfers and bed mobility Thiago and SBA. Patient's Goals
[2018-11-08] MEDS: FAT EMULSION 20% 250 ML BAG 250 ML IVPB SCH (15:48)
[2018-11-09 00:28] VITALS: BP 109/66
[2018-11-09] MEDS: METOPROLOL TART 5 MG/5 ML VIAL IVP SCH ×2 (00:39→04:43)
[2018-11-09] MEDS: INSULIN HUM LISPRO 100 UN/ML 3 ML VIAL SUBQ PRN ×3 (01:21→21:33)
[2018-11-09 04:30] VITALS: BP 118/71
[2018-11-09 07:20] VITALS: BP 134/82
--- NOTE | 2018-11-09 08:53 | General Surgery Progress Note ---
Subjective Progress Notes Subjective doing well. gagan diet. Physical Exam Vital Signs Date Time Temp Pulse Resp B/P (MAP) Pulse Ox O2 Delivery O2 Flow Rate FiO2 11/09/18 07:20 97.8 98 20 134/82 (99) 95 Room Air 11/06/18 13:10 2.0 Intake and Output 11/09/18 07:00 Intake Total 2019 ml Output Total 2300 ml Balance -281 ml Intake Oral 760 ml IV Total 1259 ml Output Urine Total 950 ml Stool Total 1350 ml # Bowel Movements 1 General Appearance: No Acute Distress GI: Other (abd soft. watery ostomy output. ) Result Diagram: 11/08/1852511/08/18525 Assessment and Plan Problems: (1) Small bowel obstruction Status: Acute Assessment & Plan: 10/29/18: Admit to surgical service, IV fluids, bowel rest, NG tube decompression, reverse anticoagulation as abdominal exam is relatively benign with high likelihood of needing surgical repair of his parastomal hernia tomorrow unless the obstruction resolves overnight. We'll ask the hospitalist service to consult given this patient's many comorbidities to help manage his a- fib, CHF, renal insufficiency, etc. Will spend tonight reversing his anticoagulation and optimizing him for surgical intervention with plans for surgery tomorrow if things do not improve overnight. I have explained this plan to the patient in detail and he seems to understand and seems to agree with this plan. 10/30/18: Doing better. Labs pending still this morning. Hospitalist is judith dsouza on rate control today, they would like improved control prior to surgery. I will add him on to the OR schedule to follow my elective surgeries this evening for open parastomal hernia repair and if rate not controlled or other contraindications to surgery arise during the day then will cancel surgery and see how he is medically tomorrow. His abdominal exam is benign this morning but still with SBO without any stoma activity since admission yesterday. Continue bowel rest, NG tube decompression, IV fluids today. Hold on lovenox as he's still under influence of warfarin and will want his coagulopathy reversed before surgery. PPI for GI prophylaxis. Abx for UTI. 10/31/18: Seems to be doing better but still with poor stoma output. Will get SBFT (water-soluble) today. If fails to open up, will require surgical exploration in the next day or two. Continue PPI, hold on lovenox for now. A- fib rate control seems to be better controlled. 11/01/18: Feeling better, stoma has started to put out with over 400 ml this am thus far. Will start clamping NG for 4 hours and then unclamping and repeat. SBFT showed no definitive point of obstruction. Abdomen remains benign. Labs okay. Will get him up and ambulating with assistance. Okay to resume Lovenox. Discussed with hospitalist and they will start PPN. Recheck labs and F/U abdomen radiographs in am. 11/02/18: Tolerated clamping NGT x 4 h and unclamping for 4 h. Stoma output increasing. Remains pain free. Will increase clamping trial to 8 hours clamped and unclamp x 2h. Continue PPN. Encouraged to continue ambulating. On Heparin for VTE chemoprophylaxis. If tolerating clamping today will plan to remove NGT tomorrow am and then start clear liquids. 11/03/18: Tolerating clamp trials but not much ileostomy output and I connected NG tube to suction and removed about 150cc bilious drainage. Not convinced the obstruction is totally resolved based on ileostomy output and KUB yesterday. Will repeat KUB this morning and if still with dilated small bowel and air fluid levels will have PICC line placed and convert PPN to TPN. Will continue NG tube clamp trials and if SBO is not absolutely resolved over the next day or two, will proceed with surgery. If doing better then will remove NG tube and slowly advance diet and see how he does. I have explained this plan to the patient and he seems to understand and he seems agreeable with this plan. 11/04/18: SBO not resolving. Will continue clamp trials. If not resolved in 2 days then will proceed with surgical exploration. Continue TPN. CCM. 11/05/18: Improved stoma output today. If persists will remove NG tube and start feeding him. If stoma output stops again will proceed with surgical exploration tomorrow. Continue NG clamp trials and TPN. 11/06/18: SBO seems to be opening up although KUB still with dilated loops of small bowel and still with significant NG tube output. Will consider endoscopy through stoma to see if I can get into intra-abdominal intestine and if not then proceed with ileostomy revision, possible ex-lap with MAK, possible removal of parastomal hernia mesh. Pt seems agreeable with this plan. 11/07/18: SBO continuing to improve with improved ileostomy output. Able to intubate subfascial/intraabdominal small bowel through stoma without any problems. Will remove NG tube today and start clear diet today. Will advance d iet as tolerated over the weekend. Continue TPN until tolerating regular diet. CCM. 11/08/18: sbo improving. will advance to full liquid diet this afternoon if he continues to do well. 11/09/18: doing well. reg diet. 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 (10) Urinary tract infection Status: Resolved Assessment & Plan: ABX Last UA with culture negative for infection. Exam Sepsis Risk: No Definite Risk Problem Qualifiers (1) Parastomal hernia: Obstruction and gangrene presence: with obstruction but without gangrene Qualified Codes: K43.3 - Parastomal hernia with obstruction, without gangrene (2) Chronic heart failure: Heart failure type: unspecified Qualified Codes: I50.9 - Heart failure, unspecified (3) Afib: Atrial fibrillation type: chronic Qualified Codes: I48.2 - Chronic atrial fibrillation (4) Chronic renal failure: Chronic kidney disease stage: unspecified stage Qualified Codes: N18.9 - Chr onic kidney disease, unspecified (5) Urinary tract infection: Urinary tract infection type: acute cystitis Hematuria presence: without hematuria Qualified Codes: N30.00 - Acute cystitis without hematuria GABO SEGUNDO Nov 09, 2018 08:53
[2018-11-09] MEDS: PANTOPRAZOLE SOD 40 MG IV VIAL IVP SCH (08:56)
[2018-11-09] MEDS: HEPARIN (PORC) 5000 UN/ML VIAL SC SCH ×2 (08:56→21:00)
[2018-11-09] MEDS: CLOTRIMAZOLE 1% CR 30 GM TUBE TP SCH ×2 (08:57→21:00)
[2018-11-09] MEDS ORDERED: DILTIAZEM CD 180 MG CAPCR PO ONE (09:40)
[2018-11-09] MEDS: METOPROLOL TART 50 MG TAB PO SCH ×2 (10:31→20:59)
--- NOTE | 2018-11-09 10:39 | Hospitalist Progress Note ---
Subjective Progress Notes Subjective He denies any new complaints. He is taking PO and tolerating fairly well. Physical Exam Vital Signs Date Time Temp Pulse Resp B/P (MAP) Pulse Ox O2 Delivery O2 Flow Rate FiO2 11/09/18 07:20 97.8 98 20 134/82 (99) 95 Room Air 11/06/18 13:10 2.0 Intake and Output 11/09/18 07:00 Intake Total 2019 ml Output Total 2300 ml Balance -281 ml Intake Oral 760 ml IV Total 1259 ml Output Urine Total 950 ml Stool Total 1350 ml # Bowel Movements 1 General Appearance: Alert, Awake Cardiovascular: Other (Irregular) Respiratory: Other (fairly clear) Result Diagram: 11/08/1852511/08/18525 Assessment and Plan Problems: (1) Afib Status: Chronic Assessment & Plan: He has been on chronic treatment with metoprolol diltiazem and warfarin. He has been NPO and receiving IV metoprolol for rate control. Warfarin has also been held and he is on "mini-heparin". He is now taking PO and tolerating fairly well. Will now restart his oral diltiazem, metoprolol, and warfarin. Monitor INR. (2) Urinary tract infection Status: Resolved Assessment & Plan: He does self catheter at home. His urine was positive for nitrite and leukocytes, but he was afebrile and his WBC was normal. He was started on ceftriaxone empirically and also received a dose of vancomycin. He did develop a rash after receiving the vancomycin. His urine culture did grow Enterobacter cloacae which was sensitive to Rocephin. Completed 3 day course of Rocephin. Now growing yeast from most recent culture, but is asymptomatic. (3) Acute on chronic renal failure Status: Acute Assessment & Plan: His creatinine has improved with IV fluids (now 1.5) and appears to be better than his baseline (creatinine of 2.0-2.2). (4) Prostate cancer metastatic to multiple sites Status: Chronic Assessment & Plan: He has had previous radiation therapy. (5) Diabetes mellitus type 2, diet-controlled Status: Chronic Assessment & Plan: He is on sliding scale level #1. BS have been well controlled. Exam Sepsis Risk: No Definite Risk Problem Qualifiers (1) Afib: Atrial fibrillation type: chronic Qualified Codes: I48.2 - Chronic atrial fibrillation (2) Urinary tract infection: Urinary tract infection type: acute cystitis Hematuria presence: without hematuria Qualified Codes: N30.00 - Acute cystitis without hematuria CASPER SCOTT MD Nov 09, 2018 10:39
[2018-11-09 13:24] VITALS: BP 115/72
[2018-11-09] MEDS ORDERED: 1: INSULIN HUM REG 100 UN/ML 3 ML 10 UNIT, MULTIVITAMINS(*) 10 ML VIAL 10 ML, TRACE META IV SCH (13:30)
[2018-11-09] MEDS: WARFARIN SOD 5 MG TAB PO SCH (13:32)
[2018-11-09 16:04] VITALS: BP 116/61
[2018-11-09 19:01] VITALS: BP 123/74
[2018-11-10 03:02] VITALS: BP 128/72
[2018-11-10 06:02] LABS: PLATELET COUNT, AUTOMATED 139 K/uL (150-450)
[2018-11-10 06:09] LABS: INR 1.1
[2018-11-10 06:38] VITALS: BP 127/76
--- NOTE | 2018-11-10 08:24 | Short(Outpt) Discharge Summary ---
Discharge Summary Reason for Hosp/Final Diag: (1) Small bowel obstruction Status: Resolved Hospital Course & Plan: 10/29/18: Admit to surgical service, IV fluids, bowel rest, NG tube decompression, reverse anticoagulation as abdominal exam is relatively benign with high likelihood of needing surgical repair of his parastomal hernia tomorrow unless the obstruction resolves overnight. We'll ask the hospitalist service to consult given this patient's many comorbidities to help manage his a-fib, CHF, renal insufficiency, etc. Will spend tonight reversing his anticoagulation and optimizing him for surgical intervention with plans for surgery tomorrow if things do not improve overnight. I have explained this plan to the patient in detail and he seems to understand and seems to agree with this plan. 10/30/18: Doing better. Labs pending still this morning. Hospitalist is working on rate control today, they would like improved control prior to surgery. I will add him on to the OR schedule to follow my elective surgeries this evening for open parastomal hernia repair and if rate not controlled or other contraindications to surgery arise during the day then will cancel surgery and see how he is medically tomorrow. His abdominal exam is benign this morning but still with SBO without any stoma activity since admission yesterday. Continue bowel rest, NG tube decompression, IV fluids today. Hold on lovenox as he's still under influence of warfarin and will want his coagulopathy reversed before surgery. PPI for GI prophylaxis. Abx for UTI. 10/31/18: Seems to be doing better but still with poor stoma output. Will get SBFT (water-soluble) today. If fails to open up, will require surgical exploration in the next day or two. Continue PPI, hold on lovenox for now. A- fib rate control seems to be better controlled. 11/01/18: Feeling better, stoma has started to put out with over 400 ml this am thus far. Will start clamping NG for 4 hours and then unclamping and repeat. SBFT showed no definitive point of obstruction. Abdomen remains benign. Labs okay. Will get him up and ambulating with assistance. Okay to resume Lovenox. Discussed with hospitalist and they will start PPN. Recheck labs and F/U abdomen radiographs in am. 11/02/18: Tolerated clamping NGT x 4 h and unclamping for 4 h. Stoma output increasing. Remains pain free. Will increase clamping trial to 8 hours clamped and unclamp x 2h. Continue PPN. Encouraged to continue ambulating. On Heparin for VTE chemoprophylaxis. If tolerating clamping today will plan to remove NGT tomorrow am and then start clear liquids. 11/03/18: Tolerating clamp trials but not much ileostomy output and I connected NG tube to suction and removed about 150cc bilious drainage. Not convinced the obstruction is totally resolved based on ileostomy output and KUB yesterday. Will repeat KUB this morning and if still with dilated small bowel and air fluid levels will have PICC line placed and convert PPN to TPN. Will continue NG tube clamp trials and if SBO is not absolutely resolved over the next day or two, will proceed with surgery. If doing better then will remove NG tube and slowly advance diet and see how he does. I have explained this plan to the patient and he seems to understand and he seems agreeable with this plan. 11/04/18: SBO not resolving. Will continue clamp trials. If not resolved in 2 days then will proceed with surgical exploration. Continue TPN. CCM. 11/05/18: Improved stoma output today. If persists will remove NG tube and start feeding him. If stoma output stops again will proceed with surgical exploration tomorrow. Continue NG clamp trials and TPN. 11/06/18: SBO seems to be opening up although KUB still with dilated loops of small bowel and still with significant NG tube output. Will consider endoscopy through stoma to see if I can get into intra-abdominal intestine and if not then proceed with ileostomy revision, possible ex-lap with MAK, possible removal of parastomal hernia mesh. Pt seems agreeable with this plan. 11/07/18: SBO continuing to improve with improved ileostomy output. Able to intubate subfascial/intraabdominal small bowel through stoma without any problems. Will remove NG tube today and start clear diet today. Will advance diet as tolerated over the weekend. Continue TPN until tolerating regular diet. CCM. 11/08/18: sbo improving. will advance to full liquid diet this afternoon if he continues to do well. 11/09/18: doing well. reg diet. 11/10/18: Doing well. Tolerating regular diet. Good stoma output. No pain. Will d/c to home today with home health nursing. I'll see him back in my office in 1 week. 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 Warfarin restarted. (10) Urinary tract infection Status: Resolved Hospital Course & Plan: ABX Last UA with culture negative for infection. Departure Discharge to: Home, Home Health Discharge Instructions Home Meds Active Scripts Sodium Bicarbonate (SODIUM BICARBONATE) 650 Mg Tablet, 1 TAB PO BID for 90 Days, #180 TAB 2 Refills Prov:RICKI JIMENEZ MD 10/27/18 Nystatin/Triamcin (NYSTATIN-TRIAMCINOLONE OINTM) 15 Gm Oint...g., 1 GM TP DAILY PRN for prn for 90 Days, #1 TUBE Prov:RICKI JIEMNEZ MD 10/23/18 Warfarin Sodium (COUMADIN) 5 Mg Tablet, 1-1.5 TAB PO DIRECTED, #90 TAB 1 Refill Take as directed by provider after INR checks Prov:RICKI JIMENEZ MD 07/16/18 Fluticasone Prop 50 Mcg Ns (FLONASE 50 MCG NS) 16 Gm [place].susp, 2 SPRAYS NS QDAY, #1 BOT Prov:RICKI JIMENEZ MD 07/10/18 Diltiazem Hcl (CARTIA XT) 180 Mg Cap.er.24h, 1 CAP PO DAILY for 90 Days, #90 CAP 4 Refills Prov:RICKI JIMENEZ MD 07/10/18 Metoprolol Tartrate (METOPROLOL TARTRATE) 25 Mg Tablet, 1 TAB PO BID for 90 Days, #180 TAB 4 Refills Prov:RICKI JIMENEZ MD 07/10/18 Reported Medications Multivitamin (CHEWABLE-CHAVA) 1 Each Tab.chew, 2 EACH PO DAILY, TAB.CHEW 01/22/18 Follow up Referrals: General Surgery - 11/17/18 @ Surgery, General with SUNI BENJAMIN MD You have a follow up appointment scheduled with Dr. Benjamin on 11/17/18, at 9:00am. Diet: Regular Activity: As Tolerated Special Instructions: Return to the ER if you develop worsening abdominal pain, bloating, nausea, vomiting, or your ileostomy stops producing stool or gas. Problem Qualifiers (1) Parastomal hernia: Obstruction and gangrene presence: with obstruction but without gangrene Qualified Codes: K43.3 - Parastomal hernia with obstruction, without gangrene (2) Chronic heart failure: Heart failure type: unspecified Qualified Codes: I50.9 - Heart failure, unspecified (3) Afib: Atrial fibrillation type: chronic Qualified Codes: I48.2 - Chronic atrial fibrillation (4) Chronic renal failure: Chronic kidney disease stage: unspecified stage Qualified Codes: N18.9 - Chronic kidney disease, unspecified (5) Urinary tract infection: Urinary tract infection type: acute cystitis Hematuria presence: without hematuria Qualified Codes: N30.00 - Acute cystitis without hematuria SUNI BENJAMIN MD Nov 10, 2018 08:24
[2018-11-10] MEDS ORDERED: DILTIAZEM CD 180 MG CAPCR PO SCH (09:00)
[2018-11-10] MEDS: CLOTRIMAZOLE 1% CR 30 GM TUBE TP SCH (09:07)
[2018-11-10] MEDS: METOPROLOL TART 50 MG TAB PO SCH (09:07)
--- NOTE | 2018-11-10 09:49 | Hospitalist Progress Note ---
Subjective Progress Notes Subjective He was admitted with small bowel obstruction. He reports much improvement in symptoms. He has eaten without difficulty. He would like to go home today. Patient Complains of: Cardiovascular: No: Chest Pain Respiratory: No: Shortness of Breath Physical Exam Vital Signs Date Time Temp Pulse Resp B/P (MAP) Pulse Ox O2 Delivery O2 Flow Rate FiO2 11/10/18 06:38 98.2 87 16 127/76 (93) 93 Room Air 11/06/18 13:10 2.0 Intake and Output 11/10/18 07:00 Intake Total 440 ml Output Total 1775 ml Balance -1335 ml Intake Oral 440 ml Output Urine Total 850 ml Stool Total 925 ml General Appearance: Alert, Awake, No Acute Distress, Afebrile Neuro: No Gross deficits Cardiovascular: Regular Rate and Rhythm Respiratory: No Respiratory Distress, Clear to Auscultation GI: Soft and Non-Tender Extremities: Warm, Perfused Psych: Alert & Oriented X3, Appropriate Mood & Affect Result Diagram: 11/10/1850 11/10/1850 Assessment and Plan Problems: (1) Afib Status: Chronic Assessment & Plan: He is on chronic treatment with metoprolol diltiazem and warfarin. He was NPO at admission and receiving IV metoprolol for rate control. Warfarin was held initially and he was placed on "mini-heparin". He is now taking PO and tolerating well. He has been restarted his oral diltiazem, metoprolol, and warfarin. Get INR checked Saturday. He will follow up with Dr. Soto for result. (2) Urinary tract infection Status: Resolved Assessment & Plan: He does self catheter at home. His urine was positive for nitrite and leukocytes, but he was afebrile and his WBC was normal. He was started on ceftriaxone empirically and also received a dose of vancomycin. He did develop a rash after receiving the vancomycin. His urine culture did grow Enterobacter cloacae which was sensitive to Rocephin. Completed 3 day course of Rocephin. Now growing yeast from most recent culture, but is asymptomatic. (3) Acute on chronic renal failure Status: Acute Assessment & Plan: His creatinine has improved with IV fluids (now 1.5) and appears to be better than his baseline (creatinine of 2.0-2.2). (4) Prostate cancer metastatic to multiple sites Status: Chronic Assessment & Plan: He has had previous radiation therapy. (5) Diabetes mellitus type 2, diet-controlled Status: Chronic Assessment & Plan: He is on sliding scale level #1. BS have been well controlled. Exam Sepsis Risk: No Definite Risk Problem Qualifiers (1) Afib: Atrial fibrillation type: chronic Qualified Codes: I48.2 - Chronic atrial fibrillation (2) Urinary tract infection: Urinary tract infection type: acute cystitis Hematuria presence: without hematuria Qualified Codes: N30.00 - Acute cystitis without hematuria ADELIA BO LEGAL PROJECT MANAGER Nov 10, 2018 09:49
[2018-11-10 11:49] VITALS: BP 125/74
[2018-11-10] MEDS: WARFARIN SOD 5 MG TAB PO SCH (13:00)
--- NOTE | 2018-11-10 14:17 | NUR ---
PHYSICAL THERAPY INFORMATION TRANSFER SHEET BED MOBILITY: Modified I/ AE TRANSFERS: Modified I/ AE GAIT: 450 ' with RW and Standby Assistance Weightbearing Status: no restrictions STAIRS: 3 with CGA. EXERCISES: Verbalizes Needs: Yes Understands Directions Yes Cooperative: Yes Family Teaching: No Physical Therapy Comment: Recommend [facility] services and will have [facility] as well for additional services.
== END 2018-11-10 13:20 | disposition home health service (06) | DRG 394 ==
LOC: ER 17:57 → OR 19:29 → MED 20:28
PROVIDERS: ADMIT Surgery; ATTEND Surgery
PROC: 0D9670Z Drainage of Stomach with Drainage Device, Via Natural or Artificial Opening (ICD-10-PCS; principal; 2018-10-29)
PROC: 30243L1 Transfusion of Nonautologous Fresh Plasma into Central Vein, Percutaneous Approach (ICD-10-PCS; 2018-10-30)
PROC: 02HV33Z Insertion of Infusion Device into Superior Vena Cava, Percutaneous Approach (ICD-10-PCS; 2018-11-03)
PROC: B548ZZA Ultrasonography of Superior Vena Cava, Guidance (ICD-10-PCS; 2018-11-03)
PROC: 0DJD8ZZ Inspection of Lower Intestinal Tract, Via Natural or Artificial Opening Endoscopic (ICD-10-PCS; 2018-11-06)
DX: K43.3 Parastomal hernia with obstruction, without gangrene (principal); I13.0 Hypertensive heart and chronic kidney disease with heart failure and stage 1 through stage 4 chronic kidney disease, or unspecified chronic kidney disease; N18.4 Chronic kidney disease, stage 4 (severe); N30.00 Acute cystitis without hematuria; N17.9 Acute kidney failure, unspecified; B37.41 Candidal cystitis and urethritis; T36.8X5A Adverse effect of other systemic antibiotics, initial encounter; B96.89 Other specified bacterial agents as the cause of diseases classified elsewhere; Z66 Do not resuscitate; I48.2 Chronic atrial fibrillation; I50.9 Heart failure, unspecified; E11.22 Type 2 diabetes mellitus with diabetic chronic kidney disease; Z85.46 Personal history of malignant neoplasm of prostate; Z79.01 Long term (current) use of anticoagulants; Z79.4 Long term (current) use of insulin
CPT/HCPCS: 36415; 36416; 36573; 71045; 74018; 74019; 74176; 74250; 80202; 81001; 82040; 82247; 82310; 82374; 82435; 82565; 82947; 82948; 83605; 83735; 84075; 84132; 84155; 84295; 84450; 84460; 84520; 85025; 85610; 85730; 86900; 86901; 87077; 87088; 87186; 93005; 97163; C1751; C1769; C9113; J0131; J0295; J0696; J1100; J1160; J1170; J1644; J1815; J2001; J2270; J2405; J2704; J3010; J3370; J3430; J7040; J7050; J7120; P9059; Q9967; S0028

== ENCOUNTER 2018-11-10 16:26 | Outpatient (RCR) | payer MEDICARE, BC ==
[2018-10-30 09:50] VITALS: BMI 21.8
[~2018-11-10 16:26] MED LIST changes: -RANI-366 PO; +RANI-54 PO
--- NOTE | 2018-11-11 11:57 | Transitional Care Management ---
Assessment Visit Type: Telephone Visit (11/11) Cardiac: WNL Cardiac Comment: 11/11 Denies any CP Respiratory: WNL GI: Nutrition: WNL Except GI Comment: 11/11 Had Breakfast this morning but finds he gets to full with meals--suggested he try doing 6-8 small meals a day Constipation?: No : WNL Except Comment: 11/11 Has the ileostomy it has sof stool. "I've taked care of it for along time" denies any questions or problems Musculoskeletal, Exercise: WNL Except Musculoskeletal, Excercise Com: 11/11 11/11 "Feeling a little tired and weak today-just taking it slow. Had my breakfast and now just resting for awhile." Mobility/Falls: WNL Mobility Comment: 11/11 Resting but had to use the walker some this morning as I felt pretty weak. Integumentary: WNL Except Integumentary Comment: 11/11 "A few bruises on my arms d/t labs and IVs but looks ok" Pain/Management: WNL Pain/Management Comment: 11/11 Denies any pain. Scheduled Follow-Up with [facility]: Yes (11/11 will call Anna Marie today to set up visits) TCM Discharge Criteria Medication Knowledge: 11/11 Went over his meds and he was able to discuss them. HH came last evening and set up his pill box. Disease Management/Concern/Wha: 11/11 Went over the care of his ostomy and to watch that stools stayed soft and he cont to have them. Monitor for increasd pain Red/Yellow Flags: as above Transitional Care Comment: 11/08 Pt agreed to TCN for us to call him and make sure everything is going well. He also feels like he needs to have [facility] to help him with his home needs-cleaning, laundry getting groceries and etc. He has also agreed to have HH visit. 11/11 Visited with Mr Shen. states he is doing oK-feeling tired and weak today but using this a down day so he can rest and take it easy. HH nurse visited him last evening and admitted him, set up meds box. HH will return tomorrow. [facility] came last evening and went to the store and got some groceries. He will call them this afternoon and set up for them to come tomorrow and do some cleaning. He seems to being well at this time, 11/10 Helped Mr Shen call [facility]-they will visit him this afternoon. He seems a little more aware of what he needs for cares and assistance with house. I will call him tomorrow and FU Copies to: RICKI JIMENEZ MD ; TIFFANIE DAMICO Nov 11, 2018 11:57
--- NOTE | 2018-11-18 13:56 | Transitional Care Management ---
Assessment Visit Type: Telephone Visit Spoke with: Trever Cardiac: WNL Cardiac Comment: 11/11 Denies any CP Respiratory: WN GI: Nutrition: WN GI Comment: 11/11 Had Breakfast this morning but finds he gets to full with meals--suggested he try doing 6-8 small meals a day Constipation?: No : WNL Except Comment: 11/11 Has the ileostomy it has sof stool. "I've taked care of it for along time" denies any questions or problems Musculoskeletal, Exercise: WNL Except Musculoskeletal, Excercise Com: 11/11 11/11 "Feeling a little tired and weak today-just taking it slow. Had my breakfast and now just resting for awhile." 11/18 "My strength is getting a little better each day." Mobility/Falls: WN Mobility Comment: 11/11 Resting but had to use the walker some this morning as I felt pretty weak. 11/18 uses the walker when he feels unsteady. Integumentary: WN Except Integumentary Comment: 11/11 "A few bruises on my arms d/t labs and IVs but looks ok" Socialization: WNL Pain/Management: WN Pain/Management Comment: 11/11 Denies any pain. Scheduled Follow-Up with Provi: Yes (11/[address] Sims yesterday, will see Dr Faulkner next week.) Following Discharge Instructio: Yes TCM Discharge Criteria Medication Knowledge: 11/11 Went over his meds and he was able to discuss them. HH came last evening and set up his pill box. Disease Management/Concern/Wha: 11/11 Went over the care of his ostomy and to watch that stools stayed soft and he cont to have them. Monitor for increasd pain Red/Yellow Flags: as above Transitional Care Comment: 11/08 Pt agreed to TCN for us to call him and make sure everything is going well. He also feels like he needs to have [facility] to help him with his home needs-cleaning, laundry getting groceries and etc. He has also agreed to have HH visit. 11/11 Visited with Mr Shen. states he is doing oK-feeling tired and weak today but using this a down day so he can rest and take it easy. nurse visited him last evening and admitted him, set up meds box. HH will return tomorrow. [facility] came last evening and went to the store and got some groceries. He will call them this afternoon and set up for them to come tomorrow and do some cleaning. He seems to being well at this time, 11/10 Helped Mr Shen call [facility]-they will visit him this afternoon. He seems a little more aware of what he needs for cares and assistance with house. I will call him tomorrow and FU 11/18 Dr Sims discussed possibly removing the mesh at the hernia, in the future. Trever is feeling better each day. Home health PT, and [facility] continue. Copies to: RICKI JIMENEZ MD ; MAKAYLA LOZADA November 18, 2018 13:56
--- NOTE | 2018-11-25 11:00 | Transitional Care Management ---
Assessment Cardiac: WNL Cardiac Comment: 11/11 Denies any CP Respiratory: WNL GI: Nutrition: WN GI Comment: 11/11 Had Breakfast this morning but finds he gets to full with meals--suggested he try doing 6-8 small meals a day Constipation?: No : WNL Except Comment: 11/11 Has the ileostomy it has sof stool. "I've taked care of it for along time" denies any questions or problems Musculoskeletal, Exercise: WNL Except Musculoskeletal, Excercise Com: 11/11 11/11 "Feeling a little tired and weak today-just taking it slow. Had my breakfast and now just resting for awhile." 11/18 "My strength is getting a little better each day." Mobility/Falls: [facility] Mobility Comment: 11/11 Resting but had to use the walker some this morning as I felt pretty weak. 11/18 uses the walker when he feels unsteady. Integumentary: WN Except Integumentary Comment: 11/11 "A few bruises on my arms d/t labs and IVs but looks ok" Socialization: WN Pain/Management: [facility] Pain/Management Comment: 11/11 Denies any pain. Scheduled Follow-Up with [facility]vi: Yes (11/[address] Sims yesterday, will see Dr Faulkner next week.) Following Discharge Instructio: Yes TCM Discharge Criteria Medication Knowledge: 11/11 Went over his meds and he was able to discuss them. HH came last evening and set up his pill box. Disease Management/Concern/Wha: 11/11 Went over the care of his ostomy and to watch that stools stayed soft and he cont to have them. Monitor for increasd pain Red/Yellow Flags: as above Transitional Care Comment: 11/08 Pt agreed to TCN for us to call him and make sure everything is going well. He also feels like he needs to have [facility] to help him with his home needs-cleaning, laundry getting groceries and etc. He has also agreed to have HH visit. 11/11 Visited with Mr Shen. states he is doing oK-feeling tired and weak today but using this a down day so he can rest and take it easy. HH nurse visited him last evening and admitted him, set up meds box. HH will return tomorrow. [facility] came last evening and went to the store and got some groceries. He will call them this afternoon and set up for them to come tomorrow and do some cleaning. He seems to being well at this time, 11/10 Helped Mr Shen call [facility]-they will visit him this afternoon. He seems a little more aware of what he needs for cares and assistance with house. I will call him tomorrow and FU 11/18 Dr Sims discussed possibly removing the mesh at the hernia, in the future. Trever is feeling better each day. Home health PT, and [facility] continue. 11/25 Unable to contact, voicemail is full. MAKAYLA LOZADA November 25, 2018 11:00
[2018-11-26] MEDS ORDERED: CALC500T6 PO (09:25)
[2018-11-26] MEDS ORDERED: ASCO-182 PO (09:25)
[2018-11-26] MEDS ORDERED: FLUT16SP19 NS (09:25)
[2018-11-26] MEDS ORDERED: LEU30I IM ONLY (10:12)
--- NOTE | 2018-11-28 11:02 | Transitional Care Management ---
Assessment Cardiac: WNL Cardiac Comment: 11/11 Denies any CP Respiratory: WNL GI: Nutrition: WN GI Comment: 11/11 Had Breakfast this morning but finds he gets to full with meals--suggested he try doing 6-8 small meals a day Constipation?: No : WNL Except Comment: 11/11 Has the ileostomy it has sof stool. "I've taked care of it for along time" denies any questions or problems Musculoskeletal, Exercise: WNL Except Musculoskeletal, Excercise Com: 11/11 11/11 "Feeling a little tired and weak today-just taking it slow. Had my breakfast and now just resting for awhile." 11/18 "My strength is getting a little better each day." Mobility/Falls: [facility] Mobility Comment: 11/11 Resting but had to use the walker some this morning as I felt pretty weak. 11/18 uses the walker when he feels unsteady. Integumentary: WN Except Integumentary Comment: 11/11 "A few bruises on my arms d/t labs and IVs but looks ok" Socialization: WN Pain/Management: [facility] Pain/Management Comment: 11/11 Denies any pain. Scheduled Follow-Up with Provi: Yes (11/[address] Sims yesterday, will see Dr Faulkner next week.) Following Discharge Instructio: Yes TCM Discharge Criteria Medication Knowledge: 11/11 Went over his meds and he was able to discuss them. HH came last evening and set up his pill box. Disease Management/Concern/Wha: 11/11 Went over the care of his ostomy and to watch that stools stayed soft and he cont to have them. Monitor for increasd pain Red/Yellow Flags: as above Transitional Care Comment: 11/08 Pt agreed to TCN for us to call him and make sure everything is going well. He also feels like he needs to have [facility] to help him with his home needs-cleaning, laundry getting groceries and etc. He has also agreed to have HH visit. 11/11 Visited with Mr Shen. states he is doing oK-feeling tired and weak today but using this a down day so he can rest and take it easy. HH nurse visited him last evening and admitted him, set up meds box. HH will return tomorrow. [facility] came last evening and went to the store and got some groceries. He will call them this afternoon and set up for them to come tomorrow and do some cleaning. He seems to being well at this time, 11/10 Helped Mr Shen call [facility]-they will visit him this afternoon. He seems a little more aware of what he needs for cares and assistance with house. I will call him tomorrow and FU 11/18 Dr Sims discussed possibly removing the mesh at the hernia, in the future. Trever is feeling better each day. Home health PT, and [facility] continue. 11/25 Unable to contact, voicemail is full. 11/28 unable to contact, voicemail is full SEPTEMBERFLAKO November 28, 2018 11:02
--- NOTE | 2018-12-06 14:14 | Transitional Care Management ---
Assessment Cardiac: WNL Cardiac Comment: 11/11 Denies any CP Respiratory: WNL GI: Nutrition: WN GI Comment: 11/11 Had Breakfast this morning but finds he gets to full with meals--suggested he try doing 6-8 small meals a day Constipation?: No : WNL Except Comment: 11/11 Has the ileostomy it has sof stool. "I've taked care of it for along time" denies any questions or problems Musculoskeletal, Exercise: WNL Except Musculoskeletal, Excercise Com: 11/11 11/11 "Feeling a little tired and weak today-just taking it slow. Had my breakfast and now just resting for awhile." 11/18 "My strength is getting a little better each day." Mobility/Falls: [facility] Mobility Comment: 11/11 Resting but had to use the walker some this morning as I felt pretty weak. 11/18 uses the walker when he feels unsteady. Integumentary: WN Except Integumentary Comment: 11/11 "A few bruises on my arms d/t labs and IVs but looks ok" Socialization: WN Pain/Management: [facility] Pain/Management Comment: 11/11 Denies any pain. Scheduled Follow-Up with Provi: Yes (11/[address] Sims yesterday, will see Dr Faulkner next week.) Following Discharge Instructio: Yes TCM Discharge Criteria Medication Knowledge: 11/11 Went over his meds and he was able to discuss them. HH came last evening and set up his pill box. Disease Management/Concern/Wha: 11/11 Went over the care of his ostomy and to watch that stools stayed soft and he cont to have them. Monitor for increasd pain Red/Yellow Flags: as above Transitional Care Comment: 11/08 Pt agreed to TCN for us to call him and make sure everything is going well. He also feels like he needs to have [facility] to help him with his home needs-cleaning, laundry getting groceries and etc. He has also agreed to have HH visit. 11/11 Visited with Mr Shen. states he is doing oK-feeling tired and weak today but using this a down day so he can rest and take it easy. HH nurse visited him last evening and admitted him, set up meds box. HH will return tomorrow. [facility] came last evening and went to the store and got some groceries. He will call them this afternoon and set up for them to come tomorrow and do some cleaning. He seems to being well at this time, 11/10 Helped Mr Shen call [facility]-they will visit him this afternoon. He seems a little more aware of what he needs for cares and assistance with house. I will call him tomorrow and FU 11/18 Dr Sims discussed possibly removing the mesh at the hernia, in the future. Trever is feeling better each day. Home health PT, and [facility] continue. 11/25 Unable to contact, voicemail is full. 11/28 unable to contact, voicemail is full 12/06 unable to contact-Dc'd from program. TIFFANIE DAMICO December 06, 2018 14:14
[2019-01-08] MEDS ORDERED: DILT-102 PO (12:43)
[2019-01-14] MEDS ORDERED: WARF-1 PO (12:49)
== END 2019-03-06 ==
LOC: TCM 16:26
PROVIDERS: ATTEND Nurse Practitioner
DX: Z02.9 Encounter for administrative examinations, unspecified (principal)

== ENCOUNTER → 2018-11-17 | Outpatient (CLI) | payer MEDICARE, BC ==
[2018-10-30 09:50] VITALS: BMI 21.8
[~2018-11-17] MED LIST changes: +RANI-366 PO; -RANI-54 PO
[2018-11-17 16:03] LABS: PLATELET COUNT, AUTOMATED 238 K/uL (150-450)
== END ==
LOC: LAB 15:33
PROVIDERS: ATTEND Internal Medicine Nephrology
DX: I12.9 Hypertensive chronic kidney disease with stage 1 through stage 4 chronic kidney disease, or unspecified chronic kidney disease (principal); D63.1 Anemia in chronic kidney disease; E11.22 Type 2 diabetes mellitus with diabetic chronic kidney disease; N18.4 Chronic kidney disease, stage 4 (severe)
CPT/HCPCS: 36415; 82040; 82310; 82374; 82435; 82565; 82570; 82728; 82947; 83540; 83550; 84100; 84132; 84156; 84295; 84520; 85025

== ENCOUNTER → 2018-11-25 | Outpatient (REF) | payer MEDICARE, BC ==
[2018-10-30 09:50] VITALS: BMI 21.8
[~2018-11-25] MED LIST changes: +ASCO-182 PO; +CALC500T6 PO; +LEU30I IM ONLY
[2018-11-25 11:35] LABS: INR 1.37
== END ==
PROVIDERS: ATTEND Pharmacist Pharmacotherapy
DX: I48.91 Unspecified atrial fibrillation (principal)
CPT/HCPCS: 85610

== ENCOUNTER → 2018-12-01 | Outpatient (CLI) | payer MEDICARE, BC ==
[2018-10-30 09:50] VITALS: BMI 21.8
--- NOTE | 2018-12-01 12:01 | RADIOLOGY IMAGING REPORT ---
FACILITY: [facility] [place] PATIENT NAME: Trever Shen : 1935 MR: [id number] V: [id number] EXAM DATE: ORDERING PHYSICIAN: ROXY AMAYA TECHNOLOGIST: Location: [facility] [place] Patient: Trever Shen : 1935 Visit/Account:[id number] Date of Sevice: 12/01/2018 DEXA Scan Clinical history: Prostate cancer. Comparison: DEXA scan from 08/14/2016. LUMBAR SPINE: The bone mineral density (BMD) measured from L1-L4 correlates with a Z-score of -0.3 and a T-score of -1 which is Normal as defined by the World Health Organization. The corresponding risk of fracture in the lumbar spine is 2 times increased compared with a young adult reference population. This valu e has decrease by 6.5 % since the prior study. More than 5% change is considered significant. HIP: Bone mineral density (BMD) measured in the LEFT total hip region correlates with a Z-score -0.8 and a T-score of -2.1 which is osteopenia as defined by the World Health Organization. The corresponding risk of fracture in the hip is 4-6 times increased compared to a young adult reference population. Th is value has decrease by 9.5 % since the prior study. More than 5% change is considered significant. T score left femoral neck -3 Bone mineral density (BMD) measured in the Femoral Neck region measures 0.685 g/cm?. IMPRESSION: 1. Lumbar spine: Normal. There has been 6.5% decrease in the bone mineral density since the previou s exam. 2. Left Total Hip: Osteopenia. There has been 9.5% decrease in the bone mineral density since the p revious exam. 3. Femoral Neck: Bone Mineral Density is 0.685 g/cm? The next DEXA scan of this patient should include the following sites: L1-L4 and the left hip. FRAX? WHO Fracture Risk Assessment Tool link: <http://www.shef.ac.uk/FRAX/tool.jsp?locationValue=9> PLEASE NOTE: 1) The World Health Organization defines low BMD as follows: T-score Normal > -1 Osteopenia < -1 and > -2.5 Osteoporosis < -2.5 without fractures Established osteoporosis < -2.5 with fractures 2) In general, you may wish to consider: Diagnosis Treatment Follow-up DEXA Normal BMD Prevention 2-3 years Osteopenia Prevention/therapy 1-2 years Osteoporosis Therapy Yearly 3) Fracture risk estimated from the T-score is more accurate for vertebral fractures (often spontane ous) than for hip fractures. Report Dictated By: Alysha Garsia MD at 12/01/2018 11:55 AM Report E-Signed By: Alysha Garsia MD at 12/01/2018 11:57 AM WSN:[id number]
== END ==
LOC: RAD 01:55
PROVIDERS: ATTEND Urology
DX: M85.88 Other specified disorders of bone density and structure, other site (principal)
CPT/HCPCS: 77080

== ENCOUNTER 2019-01-03 07:44 | Emergency (ER) | payer MEDICARE, BC ==
[2018-10-30 09:50] VITALS: Wt 75.9 kg
[~2019-01-03 07:44] MED LIST changes: -RANI-366 PO; +RANI-54 PO
--- NOTE | 2019-01-03 08:18 | ER Report ---
History and Physical Time Seen By MD: 08:16 Hx. of Stated Complaint: ABDO PAIN AND DIARRHEA IN ILEOSTOMY SINCE SATURDAY. HPI/ROS s/p full colectomy secondary to ulcerative colitis. Now with ileostomy bag. Loose stool in bag since . One episode of bloating gas pain on , but none since. Presents only worried about loose stool. No chest pain. No fever/chills. Urinating. Remainder of the 14 system rev: Yes Allergies: Coded Allergies: Sulfa (Sulfonamide Antibiotics) (Verified Adverse Reaction, Mild, RASH, 01/03/19) Home Meds Active Scripts Fluticasone Prop 50 Mcg Ns (FLONASE 50 MCG NS) 16 Gm [place].susp, 2 SPRAYS NS QDAY PRN for prn, #1 BOT Prov:RICKI JIMENEZ MD 11/26/18 Sodium Bicarbonate (SODIUM BICARBONATE) 650 Mg Tablet, 1 TAB PO BID for 90 Days, #180 TAB 2 Refills Prov:RICKI JIMENEZ MD 10/27/18 Nystatin/Triamcin (NYSTATIN-TRIAMCINOLONE OINTM) 15 Gm Oint...g., 1 GM TP DAILY PRN for prn for 90 Days, #1 TUBE Prov:RICKI JIMENEZ MD 10/23/18 Warfarin Sodium (COUMADIN) 5 Mg Tablet, 1-1.5 TAB PO DIRECTED, #90 TAB 1 Refill Take as directed by provider after INR checks Prov:RICKI JIMENEZ MD 07/16/18 Diltiazem Hcl (CARTIA XT) 180 Mg Cap.er.24h, 1 CAP PO DAILY for 90 Days, #90 CAP 4 Refills Prov:RICKI JIMENEZ MD 07/10/18 Metoprolol Tartrate (METOPROLOL TARTRATE) 25 Mg Tablet, 1 TAB PO BID for 90 Days, #180 TAB 4 Refills Prov:RICKI JIMENEZ MD 07/10/18 Reported Medications Leuprolide Acetate (LUPRON DEPOT) 30 Mg/Kit Kit, 30 MG IM ONLY q4 months, KIT Gets at Dr. Dawson office 11/26/18 Calcium Carbonate (CALCIUM) Unknown Strength Tablet, PO 11/26/18 Ascorbic Acid (VITAMIN C) Unknown Strength Tablet, PO, TAB 11/26/18 Multivitamin (CHEWABLE-CHAVA) 1 Each Tab.chew, 2 EACH PO DAILY, TAB.CHEW 01/22/18 Reviewed Nurses Notes: Yes Old Medical Records Reviewed: Yes Hx Smoking: Yes Smoking Status: Former Smoker Hx Substance Use Disorder: No Hx Alcohol Use: No Constitutional Vital Sign - Last 24 Hours 01/03/19 01/03/19 01/03/19 07:53 08:00 08:30 Temp 97.5 Pulse 118 113 136 Resp 20 B/P (MAP) 127/93 120/75 (90) 127/91 (103) Pulse Ox 98 99 91 O2 Delivery Room Air Physical Exam General Appearance: The patient is alert, has no immediate need for airway protection and no current signs of toxicity. Eyes: Pupils equal and round no injection. Respiratory: Chest is non tender, lungs are clear to auscultation. Cardiac: regular rate and rhythm Gastrointestinal: Abdomen is soft and non tender, no masses, bowel sounds normal. Skin: No rashes or lesions. DIFFERENTIAL DIAGNOSIS: After history and physical exam differential diagnosis was considered for abdominal pain including but not limited to appendicitis, cholecystitis, gastritis and urinary tract infection. Medical Decision Making Data Points Result Diagram: 01/03/19 0810 01/03/19 0810 Laboratory Hematology Test 01/03/19 08:10 Red Blood Count 4.05 M/uL (4.00-5.60) Mean Corpuscular Volume 88.8 fL (80.0-96.0) Mean Corpuscular Hemoglobin 29.9 pg (26.0-33.0) Mean Corpuscular Hemoglobin Concent 33.7 g/dL (32.0-36.0) Red Cell Distribution Width 17.4 % (11.5-14.5) Mean Platelet Volume 8.6 fL (7.2-11.1) Neutrophils (%) (Auto) 78.6 % (39.4-72.5) Lymphocytes (%) (Auto) 10.7 % (17.6-49.6) Monocytes (%) (Auto) 7.7 % (4.1-12.4) Eosinophils (%) (Auto) 2.1 % (0.4-6.7) Basophils (%) (Auto) 0.9 % (0.3-1.4) Nucleated RBC Relative Count (auto) 0.1 /100WBC Neutrophils # (Auto) 4.7 K/uL (2.0-7.4) Lymphocytes # (Auto) 0.6 K/uL (1.3-3.6) Monocytes # (Auto) 0.5 K/uL (0.3-1.0) Eosinophils # (Auto) 0.1 K/uL (0.0-0.5) Basophils # (Auto) 0.1 K/uL (0.0-0.1) Nucleated RBC Absolute Count (auto) 0.01 K/uL Sodium Level 138 mmol/L (137-145) Potassium Level 4.3 mmol/L (3.5-5.0) Chloride Level 103 mmol/L (98-107) Carbon Dioxide Level 18 mmol/L (22-30) Blood Urea Nitrogen 42 mg/dl (9-21) Creatinine 2.90 mg/dl (0.66-1.25) Glomerular Filtration Rate Calc 20.8 Random Glucose 129 mg/dl (75-110) Calcium Level 9.8 mg/dl (8.4-10.2) Total Bilirubin 1.3 mg/dl (0.2-1.3) Aspartate Amino Transf (AST/SGOT) 37 U/L (0-35) Alanine Aminotransferase (ALT/SGPT) 50 U/L (0-56) Alkaline Phosphatase 76 U/L (0-126) Total Protein 8.3 g/dl (6.3-8.2) Albumin 4.7 g/dl (3.5-5.0) Amylase Level 197 U/L (0-110) Lipase 261 U/L (23-300) Chemistry Test 01/03/19 08:10 White Blood Count 6.0 k/uL (4.5-11.0) Red Blood Count 4.05 M/uL (4.00-5.60) Hemoglobin 12.1 g/dL (14.0-18.0) Hematocrit 36.0 % (42.0-52.0) Mean Corpuscular Volume 88.8 fL (80.0-96.0) Mean Corpuscular Hemoglobin 29.9 pg (26.0-33.0) Mean Corpuscular Hemoglobin Concent 33.7 g/dL (32.0-36.0) Red Cell Distribution Width 17.4 % (11.5-14.5) Platelet Count 152 K/uL (150-450) Mean Platelet Volume 8.6 fL (7.2-11.1) Neutrophils (%) (Auto) 78.6 % (39.4-72.5) Lymphocytes (%) (Auto) 10.7 % (17.6-49.6) Monocytes (%) (Auto) 7.7 % (4.1-12.4) Eosinophils (%) (Auto) 2.1 % (0.4-6.7) Basophils (%) (Auto) 0.9 % (0.3-1.4) Nucleated RBC Relative Count (auto) 0.1 /100WBC Neutrophils # (Auto) 4.7 K/uL (2.0-7.4) Lymphocytes # (Auto) 0.6 K/uL (1.3-3.6) Monocytes # (Auto) 0.5 K/uL (0.3-1.0) Eosinophils # (Auto) 0.1 K/uL (0.0-0.5) Basophils # (Auto) 0.1 K/uL (0.0-0.1) Nucleated RBC Absolute Count (auto) 0.01 K/uL Glomerular Filtration Rate Calc 20.8 Calcium Level 9.8 mg/dl (8.4-10.2) Total Bilirubin 1.3 mg/dl (0.2-1.3) Aspartate Amino Transf (AST/SGOT) 37 U/L (0-35) Alanine Aminotransferase (ALT/SGPT) 50 U/L (0-56) Alkaline Phosphatase 76 U/L (0-126) Total Protein 8.3 g/dl (6.3-8.2) Albumin 4.7 g/dl (3.5-5.0) Amylase Level 197 U/L (0-110) Lipase 261 U/L (23-300) ED Course/Re-evaluation ED Course Presents with loose stool 4 days in his ileostomy. Only one episode of abdominal pain days ago. None since. Urinating adequately. The patient admits that he is not good at drinking fluids, and has known kidney disease. He has a benign abdominal exam. I see from the the am are he has had a small bowel obstruction in the past. He does not have any nausea, vomiting, or other evidence of a bowel obstruction today. His creatinine is more elevated than baseline today which I think is from dehydration. He was given IV fluids and also drink by mouth fluids in the emergency department. He is feeling much improved. I told him I think the loose stools will be self-limited, but encouraged him that he must drink by mouth fluids in the meantime to avoid further kidney damage. He voiced understanding. His niece is at the bedside, and also understands that he has to drink plenty of fluids. I encouraged him to follow-up with Dr. Jimenez this week. Decision to Disposition Date: Jan 03, 2019 Decision to Disposition Time: 09:52 Depart Departure Latest Vital Signs Vital Signs Date Time Temp Pulse Resp B/P (MAP) Pulse Ox O2 Delivery O2 Flow Rate FiO2 01/03/19 08:30 136 127/91 (103) 91 01/03/19 07:53 97.5 20 Room Air Impression: Primary Impression: ISELA (acute kidney injury) Additional Impression: Diarrhea Condition: Improved Disposition: HOME OR SELF-CARE Referrals: RICKI JIMENEZ MD (PCP) Patient Instructions: Acute Kidney Injury (DC) Additional Instructions: Make sure you are drinking 8 glasses of water per day. Follow up this week with Dr. Jimenez. Problem Qualifiers Additional Impression: Diarrhea Diarrhea type: unspecified type Qualified Codes: R19.7 - Diarrhea, unspecified JENNIFER CLAYTON MD Jan 03, 2019 08:18
[2019-01-03 08:28] LABS: PLATELET COUNT, AUTOMATED 152 K/uL (150-450)
[2019-01-03] MEDS ORDERED: NS(*) 0.9% 500 ML BAG 500 ML IV ONE (08:45)
[2019-01-03 10:00] VITALS: BP 109/92
== END 2019-01-03 10:09 | disposition home or self-care (01) ==
LOC: ER 08:24
DX: N17.9 Acute kidney failure, unspecified (principal); R19.7 Diarrhea, unspecified
CPT/HCPCS: 82150; 83690; 85025; 96360; 99283; J7040; 82040; 82247; 82310; 82374; 82435; 82565; 82947; 84075; 84132; 84155; 84295; 84450; 84460; 84520

== ENCOUNTER 2019-01-08 13:49 | Emergency (ER) | payer MEDICARE, BC ==
[2018-10-30 09:50] VITALS: Wt 73.1 kg
[2019-01-08] MEDS ORDERED: NS(*) 0.9% 1000 ML BAG 1,000 ML IV ONE (14:10)
--- NOTE | 2019-01-08 14:26 | ER Report ---
History and Physical Time Seen By MD: 14:02 Hx. of Stated Complaint: PT PRESENTS FROM CLINIC S HE HAS AN ELEVATED CREATININE. sTATES HE WAS HERE FOR HIS APPT , AND IS FEELING BETTER THAN HE WS A FEW DAYS AGO HPI/ROS CHIEF COMPLAINT: Elevated creatinine HISTORY OF PRESENT ILLNESS: This is an 83-year-old male who presents to the emergency department for an elevated creatinine. Patient was seen and evaluated in the emergency department this past weekend for abdominal pain and liquid stools in his ileostomy. Patient states that he thought maybe he ate something that caused the liquid stools and the severe abdominal pain, mildly elevated creatinine, was given some fluids, states that he has improved, the stools are nearing normal, the abdominal pain is basically gone he did follow-up with his primary care provider, Dr. Jimenez today, they did repeat the laboratory studies, his creatinine was noted be 4.10, he does have kidney disease took a his creatinine is around 2, he does have some historical data showing his creatinine up the 4 range however with the liquid stools he was sent to the emergency department for rehydration and reevaluation. Patient denies fevers or chills. No nausea or vomiting. No flank pain, no rashes denies chest pain or shortness of breath. No blood in the ileostomy. Stoma is well-maintained and pink. REVIEW OF SYSTEMS: Constitutional: No fever, no chills. Eyes: No discharge. ENT: No sore throat. Cardiovascular: No chest pain, no palpitations. Respiratory: No cough, no shortness of breath. Gastrointestinal: As above. Genitourinary: As above. Musculoskeletal: No back pain. Skin: No rashes. Neurological: No headache. Allergies: Coded Allergies: Sulfa (Sulfonamide Antibiotics) (Verified Adverse Reaction, Mild, RASH, 01/08/19) Home Meds Active Scripts Diltiazem Hcl (CARTIA XT) 120 Mg Cap.er.24h, 120 MG PO DAILY for 90 Days, #90 CAP Prov:RICKI JIMENEZ MD 01/08/19 Fluticasone Prop 50 Mcg Ns (FLONASE 50 MCG NS) 16 Gm [place].susp, 2 SPRAYS NS QDAY PRN for prn, #1 BOT Prov:RICKI JIMENEZ MD 11/26/18 Sodium Bicarbonate (SODIUM BICARBONATE) 650 Mg Tablet, 1 TAB PO BID for 90 Days, #180 TAB 2 Refills Prov:RICKI JIMENEZ MD 10/27/18 Nystatin/Triamcin (NYSTATIN-TRIAMCINOLONE OINTM) 15 Gm Oint...g., 1 GM TP DAILY PRN for prn for 90 Days, #1 TUBE Prov:RICKI JIMENEZ MD 10/23/18 Warfarin Sodium (COUMADIN) 5 Mg Tablet, 1-1.5 TAB PO DIRECTED, #90 TAB 1 Refill Take as directed by provider after INR checks Prov:RICKI JIMENEZ MD 07/16/18 Metoprolol Tartrate (METOPROLOL TARTRATE) 25 Mg Tablet, 1 TAB PO BID for 90 Days, #180 TAB 4 Refills Prov:RICKI JIMENEZ MD 07/10/18 Reported Medications Leuprolide Acetate (LUPRON DEPOT) 30 Mg/Kit Kit, 30 MG IM ONLY q4 months, KIT Gets at Dr. Dawson office 11/26/18 Calcium Carbonate (CALCIUM) Unknown Strength Tablet, PO 11/26/18 Ascorbic Acid (VITAMIN C) Unknown Strength Tablet, PO, TAB 11/26/18 Multivitamin (CHEWABLE-CHAVA) 1 Each Tab.chew, 2 EACH PO DAILY, TAB.CHEW 01/22/18 Discontinued Scripts Diltiazem Hcl (CARTIA XT) 180 Mg Cap.er.24h, 1 CAP PO DAILY for 90 Days, #90 CAP 4 Refills Prov:RICKI JIMENEZ MD 07/10/18 Past Medical/Surgical History The patient has a past medical and surgical history of history of A. 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 Reviewed Nurses Notes: Yes Hx Smoking: Yes Smoking Status: Former Smoker Hx Substance Use Disorder: No Hx Alcohol Use: No Constitutional Vital Sign - Last 24 Hours 01/08/19 01/08/19 01/08/19 01/08/19 13:58 13:58 14:19 14:30 Temp 97.6 Pulse 58 76 Resp 16 B/P (MAP) 107/76 (86) 107/76 106/74 (85) Pulse Ox 93 80 O2 Delivery Room Air 01/08/19 01/08/19 01/08/19 01/08/19 14:49 14:54 15:00 15:24 Pulse ??? 55 B/P (MAP) 111/60 (77) Pulse Ox 99 95 01/08/19 01/08/19 01/08/19 01/08/19 15:30 15:54 16:00 16:24 Pulse 61 73 B/P (MAP) 103/61 (75) 108/68 (81) Pulse Ox 91 98 01/08/19 16:30 B/P (MAP) 112/74 (87) Physical Exam General Appearance: The patient is alert, has no immediate need for airway protection and no signs of toxicity. Eyes: Pupils equal and round no pallor or injection. ENT, Mouth: Mucous membranes are moist. Respiratory: There are no retractions, lungs are clear to auscultation. Cardiovascular: Regular rate and rhythm. No murmurs, clicks or rubs. Gastrointestinal: Abdomen is soft and non tender, no masses, hyperactive bowel sounds. Neurological: Alert and oriented 4. Moving all extremities. Following all commands. No focal neuro deficits. Skin: Warm and dry, no rashes. Musculoskeletal: Neck is supple non tender. Extremities are nontender, nonswollen and have full range of motion. DIFFERENTIAL DIAGNOSIS: After history and physical exam differential diagnosis was considered for prerenal dehydration, ulcerative colitis, bowel obstruction, malabsorption, laboratory error. Medical Decision Making Data Points Result Diagram: 01/08/19 1410 Laboratory Hematology Test 01/08/19 14:10 Blood Urea Nitrogen 83 mg/dl (9-21) Creatinine 4.30 mg/dl (0.66-1.25) Glomerular Filtration Rate Calc 13.2 Chemistry Test 01/08/19 14:10 Glomerular Filtration Rate Calc 13.2 EKG/Imaging Imaging PATIENT NAME: Trever Shen : 1935 MR: [id number] V: [id number] EXAM DATE: ORDERING PHYSICIAN: EFRAÍN FINLEY TECHNOLOGIST: Location: [facility] [place] Patient: Trever Shen : 1935 Visit/Account:[id number] Date of Sevice: 01/08/2019 CT ABDOMEN PELVIS W/O CON HISTORY: Abdominal pain, history of ulcerative colitis and prostate cancer TECHNIQUE: CT abdomen and pelvis without intravenous contrast. Contiguous axial images of the abdomen and pelvis was performed from the lung bases to the symphysis pubis. One of the following dose optimization techniques was utilized in the per formance of this exam: Automated exposure control; adjustment of the mA and/or kV according to the patient's size; or use of an iterative reconstruction technique. Specific details can be referenced in the facility's radiology CT exam operational policy. CONTRAST: None. COMPARISON: 08/07/2016, FINDINGS: Visualized lung bases: Small right-sided pleural effusion is slightly decreased in size compared to prior exam Hepatobiliary: Gallbladder is absent. Tiny probable hepatic cysts are stable. Spleen: Negative. Adrenals: Negative. Kidneys/: A few tiny 2 mm nonobstructing stones are noted lower pole left kidney. 1.8 cm high density lesion anterior midpole right kidney is slightly larger than older studies. Differential diagnosis is a complex cyst versus a s olid neoplasm. Recommend further evaluation with MRI. Pancreas: Calcifications near the head of the pancreas are stable possibly changes of chronic pancreatitis. GI: Postoperative changes are noted from total colectomy with right lower quadrant ileostomy. No evidence for bowel obstruction or focal inflammation. Vessels/spaces/nodes: Atherosclerotic calcification is noted. Small portal lymph nodes are stable. 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 IMPRESSION: 1. Small right-sided pleural effusion unchanged from prior exam. 2. Postoperative changes are noted from total colectomy with right lower quadrant ileostomy. No evidence for bowel obstruction or focal inflammation. 3. High density lesion anterior midpole right kidney measures 1.8 cm slightly more prominent than older exams. Recommend a nonemergent MRI for further evaluation. 4. Numerous other chronic findings are detailed above. Report Dictated By: Rick Cerda MD at 01/08/2019 3:32 PM Report E-Signed By: Rick Cerda MD at 01/08/2019 3:44 PM WSN:[id number] ED Course/Re-evaluation Clinical Indication for ER IV: Hydration, IV Access ED Course The patient was admitted to room. A history of physical obtained. Differential diagnoses were considered. An IV was started. A repeat BUN and creatinine were obtained. Repeat creatinine is 4.3, patient was given a liter of fluid at 500 mL an hour. Patient continues to state that he feels just fine, I did a follow-up CT of the abdomen and pelvis showing high density lesion anterior midpole right kidney measuring 1.8 cm slightly more prominent than older exams, I did update the patient on the findings. He will follow-up with his primary care provider for a possible nonemergent MRI. The patient is feeling well, I did speak with his primary care provider as noted below, no hour conversation, the patient will be discharged home, he will follow up in the morning for repeat BUN creatinine. Patient is in agreement with this plan of care, has no other questions or con cerns and discharged home. 01/08/2019 4:34:21 pm and speak with the patient's primary care provider, Dr. Jimenez, we did discuss the possibility of the patient either staying for hydration throughout the night and repeating laboratory studies in the morning or going home and following up in the morning for repeat laboratory studies, patient would prefer to go home, he was given 1 L in the ER, he states he'll drink at least 2 of his large mugs of water this evening and shop 1st thing in the morning the laboratory for reevaluation of his creatinine. Both Dr. Jimenez and I are in agreement and feel that the patient can safely go home at this time. Decision to Disposition Date: Jan 08, 2019 Decision to Disposition Time: 16:42 Depart Departure Latest Vital Signs Vital Signs Date Time Temp Pulse Resp B/P (MAP) Pulse Ox O2 Delivery O2 Flow Rate FiO2 01/08/19 16:30 112/74 (87) 01/08/19 16:24 73 98 01/08/19 13:58 97.6 16 Room Air Impression: Primary Impression: ISELA (acute kidney injury) Additional Impressions: Elevated serum creatinine CKD (chronic kidney disease) Condition: Improved Disposition: HOME OR SELF-CARE Referrals: RICKI JIMENEZ MD (PCP) 1 Day Patient Instructions: Chronic Kidney Disease (ED) Additional Instructions: Please return to the laboratory 1st thing in the morning for a repeat BUN and creatinine level, please bring the prescription form with you. Be sure to drink at least 2 if not more of the big jugs of water tonight as we discussed. Continue to monitor your urinary output as well as your ileostomy output. If anything changes or if you have any other concerns please return to the emergency department immediately for reevaluation. Please contact Dr. Jimenez's office soon to schedule a follow-up appointment within the next couple of weeks. The laboratory results will be sent to Dr. Jimenez. Problem Qualifiers Additional Impressions: CKD (chronic kidney disease) Chronic kidney disease stage: unspecified stage Qualified Codes: N18.9 - Chronic kidney disease, unspecified EFRAÍN FINLEY [employer]ET[employer] MA[employer]GER-[employer] Jan 08, 2019 14:26
--- NOTE | 2019-01-08 15:50 | RADIOLOGY IMAGING REPORT ---
[place] [facility] [place] NAME: Trever Shen : 1935 MR: [id number] V: [id number] EXAM DATE: ORDERING PHYSICIAN: EFRAÍN FINLEY TECHNOLOGIST: Location: [facility] [place] Patient: Trever Shen : 1935 Visit/Account:[id number] Date of Sevice: 01/08/2019 CT ABDOMEN PELVIS W/O CON HISTORY: Abdominal pain, history of ulcerative colitis and prostate cancer TECHNIQUE: CT abdomen and pelvis without intravenous contrast. Contiguous axial images of the abdom en and pelvis was performed from the lung bases to the symphysis pubis. One of the following dose optimization techniques was utilized in the performance of this exam: Autom ated exposure control; adjustment of the mA and/or kV according to the patient's size; or use of an i terative reconstruction technique. Specific details can be referenced in the facility's radiology C T exam operational policy. CONTRAST: None. COMPARISON: 08/07/2016, FINDINGS: Visualized lung bases: Small right-sided pleural effusion is slightly decreased in size compared to prior exam Hepatobiliary: Gallbladder is absent. Tiny probable hepatic cysts are stable. Spleen: Negative. Adrenals: Negative. Kidneys/: A few tiny 2 mm nonobstructing stones are noted lower pole left kidney. 1.8 cm high den sity lesion anterior midpole right kidney is slightly larger than older studies. Differential diagnos is is a complex cyst versus a solid neoplasm. Recommend further evaluation with MRI. Pancreas: Calcifications near the head of the pancreas are stable possibly changes of chronic pancre atitis. GI: Postoperative changes are noted from total colectomy with right lower quadrant ileostomy. No zehra dence for bowel obstruction or focal inflammation. Vessels/spaces/nodes: Atherosclerotic calcification is noted. Small portal lymph nodes are stable. 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 IMPRESSION: 1. Small right-sided pleural effusion unchanged from prior exam. 2. Postoperative changes are noted from total colectomy with right lower quadrant ileostomy. No evide nce for bowel obstruction or focal inflammation. 3. High density lesion anterior midpole right kidney measures 1.8 cm slightly more prominent than old er exams. Recommend a nonemergent MRI for further evaluation. 4. Numerous other chronic findings are detailed above. Report Dictated By: Rick Cerda MD at 01/08/2019 3:32 PM Report E-Signed By: Rick Cerda MD at 01/08/2019 3:44 PM WSN:[id number]
[2019-01-08 16:30] VITALS: BP 112/74
== END 2019-01-08 16:45 | disposition home or self-care (01) ==
LOC: ER 14:00
DX: N17.9 Acute kidney failure, unspecified (principal); N18.9 Chronic kidney disease, unspecified; R79.89 Other specified abnormal findings of blood chemistry
CPT/HCPCS: 74176; 82565; 84520; 96360; 96361; 99284; J7030

== ENCOUNTER → 2019-01-08 | Outpatient (CLI) | payer MEDICARE, BC ==
[2018-10-30 09:50] VITALS: BMI 21.8
[~2019-01-08] MED LIST changes: +DILT-102 PO
[2019-01-08 12:34] LABS: PLATELET COUNT, AUTOMATED 179 K/uL (150-450)
[2019-01-08 12:36] LABS: INR 3.9
== END ==
LOC: LAB 12:15
PROVIDERS: ATTEND Family Medicine
DX: N18.9 Chronic kidney disease, unspecified (principal); R53.1 Weakness; Z79.01 Long term (current) use of anticoagulants
CPT/HCPCS: 36415; 82040; 82247; 82310; 82374; 82435; 82565; 82947; 84075; 84132; 84155; 84295; 84450; 84460; 84520; 85025; 85610

== ENCOUNTER → 2019-01-09 | Outpatient (CLI) | payer MEDICARE, BC ==
[2018-10-30 09:50] VITALS: BMI 21.8
== END ==
LOC: LAB 09:59
PROVIDERS: ATTEND Family Medicine
DX: R79.89 Other specified abnormal findings of blood chemistry (principal)
CPT/HCPCS: 36415; 82310; 82374; 82435; 82565; 82947; 84132; 84295; 84520

== ENCOUNTER → 2019-01-12 | Outpatient (CLI) | payer MEDICARE, BC ==
[2018-10-30 09:50] VITALS: BMI 21.8
== END ==
LOC: LAB 11:03
PROVIDERS: ATTEND Family Medicine
DX: R79.89 Other specified abnormal findings of blood chemistry (principal); N18.9 Chronic kidney disease, unspecified
CPT/HCPCS: 36415; 82310; 82374; 82435; 82565; 82947; 84132; 84295; 84520